=== PATIENT | female | born 1960 | race Caucasian/White ===

== ENCOUNTER → 2016-08-10 | Outpatient (CLI) | payer OTHER ==
[2016-08-10 10:17] LABS: ALT 23 U/L (9-52); AST 17 U/L (14-36); Alkaline Phosphatase 67 U/L (38-126); Anion Gap 9 mmol/L; Blood Urea Nitrogen 8 mg/dL (7-17); Calcium 9.2 mg/dL (8.4-10.2); Carbon Dioxide 26 mmol/L (22-30); Chloride 106 mmol/L (98-107); Cholesterol 144 mg/dL (<200); Glucose 105 mg/dL (74-99); HDL Cholesterol 40 mg/dL (40-60); Non-African American GFR(MDRD) >60 (>60 ml/min/1.73 sqM); Potassium 4.6 mmol/L (3.5-5.1); Sodium 141 mmol/L (137-145); Total Bilirubin 0.6 mg/dL (0.2-1.3); Total Protein 7.2 g/dL (6.3-8.2); Triglycerides 126 mg/dL (<150)
== END | disposition home or self-care (01) ==
LOC: LABWHC1 08:34
PROVIDERS: ATTEND Internal Medicine Interventional Cardiology
DX: E78.2 Mixed hyperlipidemia (principal)
CPT/HCPCS: 36415; 80053; 80061

== ENCOUNTER → 2016-08-24 | Outpatient (CLI) | payer OTHER ==
--- NOTE | 2016-08-24 17:43 | XR ---
EXAMINATION TYPE: XR foot complete RT DATE OF EXAM: 08/24/2016 COMPARISON: NONE HISTORY: Pain TECHNIQUE: 3 views FINDINGS: There are plantar and Achilles calcaneal spurs. Metatarsals are intact. I see no fracture n or dislocation. IMPRESSION: Calcaneal spurring. No fracture seen. No evidence of inflammatory arthritis.
== END ==
LOC: RADXRMAIN 16:55
PROVIDERS: ATTEND Podiatrist Foot & Ankle Surgery
DX: M77.31 Calcaneal spur, right foot (principal)

== ENCOUNTER 2016-08-27 09:25 | Emergency (ER) | payer OTHER ==
[2016-08-27 09:32] VITALS: BP 120/69; PULSE 75; RESP 17; TEMP 98.8
--- NOTE | 2016-08-27 10:16 | ED ---
General Adult HPI - General Chief complaint: Extremity Injury, Lower Stated complaint: Knee Pain Time Seen by Provider: 08/27/16 10:01 Source: patient, RN notes reviewed Mode of arrival: ambulatory Limitations: no limitations - History of Present Illness Initial comments: Patient's a 55-year-old female who presents emergency room today with chief complaint of increased pain to the left knee. She does admit that she was sleeping last night her left knee felt stiff she moved and felt a pop in the left knee. She states she's had something like this in the past with her ligament. She states worse when she flexes better when she extends. States she has been able to ambulate. Denies any swelling. Denies any other complaints or symptoms at this time. Patient denies any recent fever, chills, shortness of breath, chest pain, back pain, abdominal pain, nausea or vomiting, numbness or tingling, dysuria or hematuria, constipation or diarrhea, headaches or visual changes, or any other complaints. - Related Data Home Medications Medication Instructions Recorded Confirmed Levothyroxine Sodium [Synthroid] 88 mcg PO DAILY 08/09/13 10/05/13 Omeprazole [PriLOSEC] 20 mg PO AC-BID 10/03/13 10/05/13 Previous Rx's Medication Instructions Recorded Aspirin 325 mg PO DAILY #30 tab 08/12/13 Atorvastatin [Lipitor] 80 mg PO DAILY #30 tab 08/12/13 Carvedilol [Coreg] 6.25 mg PO PC-BID #60 tab 08/12/13 Clopidogrel [Plavix] 75 mg PO DAILY #30 tab 08/12/13 Furosemide [Lasix] 20 mg PO DAILY 30 Days 08/12/13 Lisinopril [Zestril] 5 mg PO DAILY #30 tab 08/12/13 Nitroglycerin Sl Tabs [Nitrostat] 0.4 mg SUBLINGUAL Q5M PRN #20 tab 08/12/13 Spironolactone [Aldactone] 25 mg PO DAILY #30 tab 08/12/13 Ibuprofen [Motrin] 600 mg PO Q6HR PRN #40 day 08/27/16 Allergies Allergy/AdvReac Type Severity Reaction Status Date / Time hydrocodone bitartrate AdvReac Unknown, Verified 10/03/13 14:33 [From Vicodin] VERY RESTLESS, ANXIETY Review of Systems ROS Statement: Those systems with pertinent positive or pertinent negative responses have been documented in the HPI. ROS Other: All systems not noted in ROS Statement are negative. Past Medical History Past Medical History: GERD/Reflux, Osteoarthritis (OA), Thyroid Disorder History of Any Multi-Drug Resistant Organisms: None Reported Past Surgical History: Cholecystectomy, Heart Catheterization With Stent Past Anesthesia/Blood Transfusion Reactions: No Reported Reaction Date of Last Stent Placement:: 08/10/13 Past Psychological History: No Psychological Hx Reported, Depression Smoking Status: Current every day smoker Past Alcohol Use History: None Reported Past Drug Use History: None Reported General Exam - General Exam Comments Initial Comments: General: The patient is awake and alert, in no distress, and does not appear acutely ill. Neck: The neck is supple, there is no tenderness or JVD. Cardiovascular: There is a regular rate and rhythm. No murmur, rub or gallop is appreciated. Respiratory: Lungs are clear to auscultation, respirations are non-labored, breath sounds are equal. No wheezes, stridor, rales, or rhonchi. Musculoskeletal: Patient does have a normal appearance of the left knee no obvious deformity. No swelling or bruising. Patient does show good range of motion. Pain is reproduced with flexion at the left knee. Mild tenderness into the anterior lateral aspect. Negative valgus varus stress. Negative Carlos Manuel's maneuver. No popliteal tenderness. Negative Homans. No swelling to the lower extremities. Pulses equal bilaterally 2+. Strength is 5/5. Neurological: A&O x 3. CN II-XII intact, There are no obvious motor or sensory deficits. Coordination appears grossly intact. Speech is normal. Skin: Skin is warm and dry and no rashes or lesions are noted. Psychiatric: Normal mood and affect. Limitations: no limitations Course Vital Signs 08/27/16 09:29 Temperature 98.8 F Pulse Rate 75 Respiratory 17 Rate Blood Pressure 120/69 O2 Sat by Pulse 98 Oximetry Medical Decision Making - Medical Decision Making Patient's x-ray reviewed does show findings that may represent increased with positive arthropathy, osteoarthritis. Findings compatible with a synovial osteochondromatosis. Results were discussed with patient. She is advised to follow-up with orthopedics for further evaluation. Advised to ice elevate the affected area and use anti-inflammatories for pain at this time. Disposition Clinical Impression: Knee pain, acute Disposition: HOME SELF-CARE Condition: Good Instructions: Knee Pain (ED) Additional Instructions: Please continue to ice elevate the affected areas 4 times daily for 20 minutes at a time. Please use anti-inflammatory ibuprofen for pain as needed and follow -up orthopedics over the next 2 days. Please return to emergency room for any other concerns. Prescriptions: Ibuprofen [Motrin] 600 mg PO Q6HR PRN #40 day PRN Reason: Pain Referrals: Dieter Wheat DO [Primary Care Provider] - 1-2 days Eddie Hernandez MD [Medical Doctor] - 1-2 days Time of Disposition: 10:31
--- NOTE | 2016-08-27 10:23 | XR ---
Left knee HISTORY: Left knee pain 3 views of the left knee, no comparisons There are ossific densities in the suprapatellar location with associated increased density compatibl e with joint effusion and loose bodies. Bone mineralization is reduced. Joint space loss present jun cially in the medial compartment, patellofemoral joint with marginal spurring. Alignment is maintaine d. 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
== END 2016-08-27 10:40 | disposition home or self-care (01) ==
LOC: EC 09:25
DX: M25.562 Pain in left knee (principal); K21.9 Gastro-esophageal reflux disease without esophagitis; E07.9 Disorder of thyroid, unspecified; F17.200 Nicotine dependence, unspecified, uncomplicated; Z79.899 Other long term (current) drug therapy; Z88.5 Allergy status to narcotic agent; X50.9XXA Other and unspecified overexertion or strenuous movements or postures, initial encounter; Y93.84 Activity, sleeping
CPT/HCPCS: 99283

== ENCOUNTER → 2017-05-07 | Outpatient (CLI) | payer OTHER ==
[2017-05-07 10:37] LABS: ALT 17 U/L (9-52); AST 13 U/L (14-36); Albumin 3.6 g/dL (3.5-5.0); Alkaline Phosphatase 76 U/L (38-126); Anion Gap 9 mmol/L; Blood Urea Nitrogen 5 mg/dL (7-17); Calcium 9.1 mg/dL (8.4-10.2); Carbon Dioxide 26 mmol/L (22-30); Chloride 109 mmol/L (98-107); Cholesterol 134 mg/dL (<200); Glucose 98 mg/dL (74-99); HDL Cholesterol 42 mg/dL (40-60); LDL Cholesterol,Calculated 74 mg/dL (0-99); Potassium 4.7 mmol/L (3.5-5.1); Sodium 144 mmol/L (137-145); Total Bilirubin 0.4 mg/dL (0.2-1.3); Total Protein 6.7 g/dL (6.3-8.2); Triglycerides 92 mg/dL (<150)
== END | disposition home or self-care (01) ==
LOC: LABWHC1 09:44
PROVIDERS: ATTEND Internal Medicine Interventional Cardiology
DX: E78.2 Mixed hyperlipidemia (principal)
CPT/HCPCS: 36415; 80053; 80061

== ENCOUNTER → 2017-05-07 | Outpatient (CLI) | payer OTHER ==
--- NOTE | 2017-05-07 13:08 | XR ---
EXAMINATION TYPE: XR chest 2V DATE OF EXAM: 05/07/2017 COMPARISON: Prior chest x-ray 10/31/2015 HISTORY: COPD, follow-up for pneumonia TECHNIQUE: Frontal and lateral views of the chest are obtained. FINDINGS: There is no focal air space opacity, pleural effusion, or pneumothorax seen. The cardiac silhouette size is within normal limits. Prominent lung volumes compatible with underlying COPD. Pa tient is rotated. The osseous structures are intact. IMPRESSION: No acute cardiopulmonary process.
== END | disposition home or self-care (01) ==
LOC: RADXRMAIN 10:03
PROVIDERS: ATTEND Family Medicine
DX: J44.9 Chronic obstructive pulmonary disease, unspecified (principal)
CPT/HCPCS: 71046

== ENCOUNTER → 2017-06-22 | Outpatient (CLI) | payer OTHER ==
--- NOTE | 2017-06-22 12:34 | XR ---
EXAMINATION TYPE: XR chest 2V DATE OF EXAM: 06/22/2017 COMPARISON: NONE TECHNIQUE: PA and lateral views submitted. HISTORY: Cough FINDINGS: The lungs are clear and there is no pneumothorax, pleural effusion, or focal pneumonia. Hypertrophi c and degenerative change of the spine noted. Arthropathy of the shoulders. Surgical clips in the abd omen. IMPRESSION: 1. No acute process.
== END | disposition home or self-care (01) ==
LOC: RADXRMAIN 12:15
PROVIDERS: ATTEND Nurse Practitioner Acute Care
DX: J06.9 Acute upper respiratory infection, unspecified (principal)
CPT/HCPCS: 71046

== ENCOUNTER 2017-06-24 12:34 | Emergency (ER) | payer OTHER ==
--- NOTE | 2017-06-24 14:20 | XR ---
EXAMINATION TYPE: XR chest 2V DATE OF EXAM: 06/24/2017 COMPARISON: 06/22/2017 HISTORY: Cough and congestion for 6 days TECHNIQUE: Frontal and lateral views of the chest are obtained. FINDINGS: There is new platelike atelectasis within the left midlung. Remainder the lungs are clear. No focal consolidation, pleural effusion or pneumothorax. Cardiomediastinal silhouette is within nor mal limits. Osseous structures are intact. Cholecystectomy clips are noted within the right upper jun drant. IMPRESSION: New platelike left midlung peripheral atelectasis. No findings to suggest pneumonia.
--- NOTE | 2017-06-24 14:33 | ED ---
URI HPI - General Chief Complaint: Upper Respiratory Infection Stated Complaint: Cough Time Seen by Provider: 06/24/17 13:29 Source: patient, RN notes reviewed Mode of arrival: ambulatory Limitations: no limitations - History of Present Illness Initial Comments: 56-year-old female presents emergency Department chief complaint of cough congestion. Patient states she's been sick for last week seen by PCP yesterday placed on azithromycin and Medrol Dosepak. Patient states that she's been taken for last couple days no improvement states that she's had reactions to medication. States it makes her stomach upset. Patient states that she feels jittery from the steroids. Denies any chest pain or shortness breath this time. Denies any ear pain she has complaint sinus congestion and sore throat. - Related Data Home Medications Medication Instructions Recorded Confirmed Omeprazole [PriLOSEC] 20 mg PO AC-BID 10/03/13 06/24/17 Aspirin EC [Ecotrin Low Dose] 81 mg PO DAILY 06/24/17 06/24/17 Atorvastatin [Lipitor] 40 mg PO HS 06/24/17 06/24/17 Azithromycin [Zithromax Z-pack] See Taper PO DIRECTED 06/24/17 06/24/17 Carvedilol [Coreg] 6.25 mg PO QAM 06/24/17 06/24/17 Carvedilol [Coreg] 12.5 mg PO HS 06/24/17 06/24/17 Citalopram Hydrobromide 20 mg PO DAILY 06/24/17 06/24/17 [Citalopram HBr] Depo-Medrol 80 mg IM ONCE 06/24/17 06/24/17 Ipratropium/Albuterol Sulfate 1 puff INHALATION RT-QID 06/24/17 06/24/17 [Combivent Respimat Inhaler] Levothyroxine Sodium [Synthroid] 100 mcg PO DAILY 06/24/17 06/24/17 Losartan Potassium [Cozaar] 25 mg PO DAILY 06/24/17 06/24/17 Meloxicam 15 mg PO DAILY 06/24/17 06/24/17 Ondansetron HCl [Zofran] 4 mg PO Q8H PRN 06/24/17 06/24/17 Umeclidinium [place] [Incruse 1 puff INHALATION RT-DAILY 06/24/17 06/24/17 Ellipta] methylPREDNISolone [Medrol Dose See Taper PO DIRECTED 06/24/17 06/24/17 Pack] Previous Rx's Medication Instructions Recorded Nitroglycerin Sl Tabs [Nitrostat] 0.4 mg SUBLINGUAL Q5M PRN #20 tab 08/12/13 Amoxicillin/Potassium Clav 1 tab PO Q12HR #20 tab 06/24/17 [Augmentin 875-125 Tablet] Allergies Allergy/AdvReac Type Severity Reaction Status Date / Time hydrocodone bitartrate AdvReac Unknown, Verified 06/24/17 13:52 [From Vicodin] VERY RESTLESS, ANXIETY Review of Systems ROS Statement: Those systems with pertinent positive or pertinent negative responses have been documented in the HPI. ROS Other: All systems not noted in ROS Statement are negative. Past Medical History Past Medical History: GERD/Reflux, Osteoarthritis (OA), Thyroid Disorder History of Any Multi-Drug Resistant Organisms: None Reported Past Surgical History: Cholecystectomy, Heart Catheterization With Stent Past Anesthesia/Blood Transfusion Reactions: No Reported Reaction Date of Last Stent Placement:: 08/10/13 Past Psychological History: Depression Smoking Status: Current every day smoker Past Alcohol Use History: None Reported Past Drug Use History: None Reported General Exam Limitations: no limitations General appearance: alert, in no apparent distress Head exam: Present: atraumatic, normocephalic, normal inspection Eye exam: Present: normal appearance, PERRL, EOMI. Absent: scleral icterus, conjunctival injection, periorbital swelling ENT exam: Present: mucous membranes moist, TM's normal bilaterally, normal external ear exam. Absent: normal oropharynx (postnasal drainage) Neck exam: Present: normal inspection, full ROM. Absent: tenderness, meningismus, lymphadenopathy Respiratory exam: Present: normal lung sounds bilaterally. Absent: respiratory distress, wheezes, rales, rhonchi, stridor Cardiovascular Exam: Present: regular rate, normal rhythm, normal heart sounds. Absent: systolic murmur, diastolic murmur, rubs, gallop, clicks Course Vital Signs 06/24/17 13:20 Temperature 98.8 F Pulse Rate 62 Respiratory 16 Rate Blood Pressure 137/71 O2 Sat by Pulse 96 Oximetry Medical Decision Making - Medical Decision Making 56-year-old female presented for URI symptoms. patient repeat x-ray today shows atelectasis no evidence of pneumonia. We discussed taken decongestant, taking deep inspirations. Patient will be placed on Augmentin. Return parameters were discussed. Disposition Clinical Impression: Upper respiratory infection Disposition: HOME SELF-CARE Condition: Stable Instructions: Upper Respiratory Infection (ED) Additional Instructions: Please return to the Emergency Department if symptoms worsen or any other concerns. Prescriptions: Amoxicillin/Potassium Clav [Augmentin 875-125 Tablet] 1 tab PO Q12HR #20 tab Referrals: Dieter Wheat DO [Primary Care Provider] - 1-2 days Time of Disposition: 14:33
[2017-06-24 14:46] VITALS: BP 133/72; PULSE 71; RESP 18; TEMP 98.3
== END 2017-06-24 14:46 | disposition home or self-care (01) ==
LOC: EC 12:34
DX: J06.9 Acute upper respiratory infection, unspecified (principal); J98.11 Atelectasis; K21.9 Gastro-esophageal reflux disease without esophagitis; M19.90 Unspecified osteoarthritis, unspecified site; E07.9 Disorder of thyroid, unspecified; F32.9 Major depressive disorder, single episode, unspecified; F17.200 Nicotine dependence, unspecified, uncomplicated; Z79.1 Long term (current) use of non-steroidal anti-inflammatories (NSAID); Z79.52 Long term (current) use of systemic steroids; Z79.82 Long term (current) use of aspirin; Z79.899 Other long term (current) drug therapy
CPT/HCPCS: 71046; 99283

== ENCOUNTER 2017-06-26 12:59 | Observation (INO) | payer OTHER ==
[2017-06-26] MEDS ORDERED: methylPREDNISolone SOD SUCCI 125 MG/2 ML VIAL IV STA (13:20)
[2017-06-26] MEDS ORDERED: IPRATROPIUM-ALBUTEROL 3 ML NEB INHALATION STA (13:20)
[2017-06-26] MEDS ORDERED: SODIUM CHLORIDE 0.9% 500 ML IV STA (13:20)
[2017-06-26] MEDS ORDERED: SODIUM CHLORIDE 0.9% 1,000 ML IV STA (13:20)
[2017-06-26] MEDS ORDERED: AZITHROMYCIN 500 MG in SODIUM CHLORIDE 0.9% 250 ML IVPB STA (13:20)
--- NOTE | 2017-06-26 14:07 | ED ---
General Adult HPI - General Chief complaint: Shortness of Breath Stated complaint: Dizzy Time Seen by Provider: 06/26/17 13:07 Source: patient, RN notes reviewed, old records reviewed Mode of arrival: wheelchair Limitations: no limitations - History of Present Illness Initial comments: This is a 56-year-old female the ER for evaluation. She presents today for evaluation of shortness of breath with cough. Patient has positive history of bronchitis and smoking. Recent diagnosis of bronchitis on outpatient treatment. Patient states she is having no improvement. No recent travel history no sick contacts, no prior hospitalizations for shortness of breath. - Related Data Home Medications Medication Instructions Recorded Confirmed Omeprazole [PriLOSEC] 20 mg PO AC-BID 10/03/13 06/26/17 Aspirin EC [Ecotrin Low Dose] 81 mg PO DAILY 06/24/17 06/26/17 Atorvastatin [Lipitor] 40 mg PO HS 06/24/17 06/26/17 Carvedilol [Coreg] 6.25 mg PO QAM 06/24/17 06/26/17 Carvedilol [Coreg] 12.5 mg PO HS 06/24/17 06/26/17 Citalopram Hydrobromide 20 mg PO DAILY 06/24/17 06/26/17 [Citalopram HBr] Ipratropium/Albuterol Sulfate 1 puff INHALATION RT-QID 06/24/17 06/26/17 [Combivent Respimat Inhaler] Levothyroxine Sodium [Synthroid] 100 mcg PO DAILY 06/24/17 06/26/17 Losartan Potassium [Cozaar] 25 mg PO DAILY 06/24/17 06/26/17 Meloxicam 15 mg PO DAILY 06/24/17 06/26/17 Ondansetron HCl [Zofran] 4 mg PO Q8H PRN 06/24/17 06/26/17 Umeclidinium [place] [Incruse 1 puff INHALATION RT-DAILY 06/24/17 06/26/17 Ellipta] Previous Rx's Medication Instructions Recorded Nitroglycerin Sl Tabs [Nitrostat] 0.4 mg SUBLINGUAL Q5M PRN #20 tab 08/12/13 Amoxicillin/Potassium Clav 1 tab PO Q12HR #20 tab 06/24/17 [Augmentin 875-125 Tablet] Allergies Allergy/AdvReac Type Severity Reaction Status Date / Time hydrocodone bitartrate AdvReac VERY Verified 06/26/17 13:39 [From Vicodin] RESTLESS, ANXIETY Review of Systems ROS Statement: Those systems with pertinent positive or pertinent negative responses have been documented in the HPI. ROS Other: All systems not noted in ROS Statement are negative. Past Medical History Past Medical History: GERD/Reflux, Osteoarthritis (OA), Thyroid Disorder History of Any Multi-Drug Resistant Organisms: None Reported Past Surgical History: Cholecystectomy, Heart Catheterization With Stent Past Anesthesia/Blood Transfusion Reactions: No Reported Reaction Date of Last Stent Placement:: 08/10/13 Past Psychological History: Depression Smoking Status: Current every day smoker Past Alcohol Use History: None Reported Past Drug Use History: None Reported General Exam Limitations: no limitations General appearance: alert, in no apparent distress, anxious Head exam: Present: atraumatic, normocephalic, normal inspection Eye exam: Present: normal appearance, PERRL, EOMI. Absent: scleral icterus, conjunctival injection, periorbital swelling ENT exam: Present: normal exam, mucous membranes moist Neck exam: Present: normal inspection. Absent: tenderness, meningismus, lymphadenopathy Respiratory exam: Present: respiratory distress, wheezes, decreased breath sounds, prolonged expiratory. Absent: rales, rhonchi, stridor Cardiovascular Exam: Present: regular rate, normal rhythm, normal heart sounds. Absent: systolic murmur, diastolic murmur, rubs, gallop, clicks GI/Abdominal exam: Present: soft, normal bowel sounds. Absent: distended, tenderness, guarding, rebound, rigid Extremities exam: Present: normal inspection, full ROM, normal capillary refill. Absent: tenderness, pedal edema, joint swelling, calf tenderness Back exam: Present: normal inspection Neurological exam: Present: alert, oriented X3, CN II-XII intact Psychiatric exam: Present: normal affect, normal mood Skin exam: Present: warm, dry, intact, normal color. Absent: rash Course Vital Signs 06/26/17 06/26/17 06/26/17 13:00 13:59 14:10 Temperature 96.8 F L Pulse Rate 54 L 84 88 Respiratory 24 Rate Blood Pressure 120/57 O2 Sat by Pulse 97 Oximetry - Reevaluation(s) Reevaluation #1: 06/26/17 14:32 She is having improvement with breathing treatment EKG Findings - EKG Comments: EKG Findings:: EKG shows sinus bradycardia rate of 52, [place] 172, QRS 90, QTc 476 Medical Decision Making - Medical Decision Making 56 female the ER for evaluation patient presents today for evaluation regarding shortness of breath consistent shortness of breath even since recent hospital admission. Patient is a positive smoker with history of bronchitis. to be admitted for feel outpatient treatment, continuous breathing treatments as well as steroids - Lab Data Result diagrams: 06/26/17 14:00 06/26/17 14:00 Lab Results 06/26/17 06/26/17 06/26/17 Range/Units 14:00 14:00 14:00 WBC 7.4 (3.8-10.6) k/uL RBC 4.34 (3.80-5.40) m/uL Hgb 13.3 (11.4-16.0) gm/dL Hct 38.7 (34.0-46.0) % MCV 89.2 (80.0-100.0) fL MCH 30.5 (25.0-35.0) pg MCHC 34.2 (31.0-37.0) g/dL RDW 13.3 (11.5-15.5) % Plt Count 205 (150-450) k/uL Neutrophils % 65 % Lymphocytes % 27 % Monocytes % 4 % Eosinophils % 0 % Basophils % 0 % Neutrophils # 4.8 (1.3-7.7) k/uL Lymphocytes # 2.0 (1.0-4.8) k/uL Monocytes # 0.3 (0-1.0) k/uL Eosinophils # 0.0 (0-0.7) k/uL Basophils # 0.0 (0-0.2) k/uL PT 9.9 (9.0-12.0) sec INR 1.0 (<1.2) APTT 22.4 (22.0-30.0) sec D-Dimer 0.37 (<0.60) mg/L FEU Sodium 142 (137-145) mmol/L Potassium 4.4 (3.5-5.1) mmol/L Chloride 108 H (98-107) mmol/L Carbon Dioxide 20 L (22-30) mmol/L Anion Gap 14 mmol/L BUN 10 (7-17) mg/dL Creatinine 0.61 (0.52-1.04) mg/dL Est GFR (CKD-EPI)AfAm >90 (>60 ml/min/1.73 sqM) Est GFR (CKD-EPI)NonAf >90 (>60 ml/min/1.73 sqM) Glucose 90 (74-99) mg/dL Calcium 9.0 (8.4-10.2) mg/dL Magnesium 2.0 (1.6-2.3) mg/dL Total Bilirubin 0.5 (0.2-1.3) mg/dL AST 34 (14-36) U/L ALT 37 (9-52) U/L Alkaline Phosphatase 54 (38-126) U/L Total Protein 7.3 (6.3-8.2) g/dL Albumin 3.8 (3.5-5.0) g/dL - Radiology Data Radiology results: report reviewed (Chest x-rays negative), image reviewed Disposition Clinical Impression: Dizziness, Anxiety, Upper respiratory infection, Acute exacerbation of chronic obstructive airways disease, Failure of outpatient treatment Disposition: ADMITTED IP TO THIS [facility] Condition: Fair Referrals: Dieter Wheat DO [Primary Care Provider] - 1-2 days
[2017-06-26 14:11] LABS: Basophils % (A) 0 %; Eosinophils % (A) 0 %; HCT 38.7 % (34.0-46.0); HGB 13.3 gm/dL (11.4-16.0); Lymphocytes % (A) 27 %; MCH 30.5 pg (25.0-35.0); MCHC 34.2 g/dL (31.0-37.0); MCV 89.2 fL (80.0-100.0); Mean Platelet Volume 8.1; Monocytes # (A) 0.3 k/uL (0-1.0); Monocytes % (A) 4 %; Neutrophils # (A) 4.8 k/uL (1.3-7.7); Neutrophils % (A) 65 %; Platelet Count 205 k/uL (150-450); RBC 4.34 m/uL (3.80-5.40); RDW 13.3 % (11.5-15.5); WBC 7.4 k/uL (3.8-10.6)
[2017-06-26 14:21] LABS: Albumin 3.8 g/dL (3.5-5.0); Anion Gap 14 mmol/L; Carbon Dioxide 20 mmol/L (22-30); Chloride 108 mmol/L (98-107); Glucose 90 mg/dL (74-99); Sodium 142 mmol/L (137-145); Total Bilirubin 0.5 mg/dL (0.2-1.3); Total Protein 7.3 g/dL (6.3-8.2)
[2017-06-26 14:23] LABS: ALT 37 U/L (9-52); AST 34 U/L (14-36); Alkaline Phosphatase 54 U/L (38-126); Blood Urea Nitrogen 10 mg/dL (7-17); Potassium 4.4 mmol/L (3.5-5.1)
[2017-06-26 14:24] LABS: D-Dimer 0.37 mg/L FEU (<0.60); Partial Thromboplastin Time 22.4 sec (22.0-30.0); Prothrombin Time 9.9 sec (9.0-12.0)
--- NOTE | 2017-06-26 14:33 | XR ---
EXAMINATION TYPE: XR chest 2V DATE OF EXAM: 06/26/2017 COMPARISON: Chest x-ray 2 days ago and older studies. HISTORY: Difficulty breathing per order. Upper respiratory infection. TECHNIQUE: Frontal and lateral views of the chest are obtained. FINDINGS: There is chronic parenchymal changes left lateral midlung linear atelectasis redemonstrated . There is no new suspicious focal air space opacity or pneumothorax seen. New tiny bilateral pleura l effusions are suspected with blunting of posterior costophrenic angles bilaterally. The cardiac ctahleen houette size is upper limits of normal currently and slightly more prominent. Cholecystectomy clips are noted on lateral view. The osseous structures are intact. IMPRESSION: New tiny bilateral pleural effusions and slightly more prominence of cardiac silhouette. Correlate for fluid overload state or early CHF exacerbation. No new suspicious focal infiltrate.
[2017-06-26 14:41] LABS: Creatine Kinase 290 U/L (30-135)
[2017-06-26 14:54] LABS: Creatine Kinase MB 1.1 ng/mL (0.0-2.4); Troponin I <0.012 ng/mL (0.000-0.034)
[2017-06-26 16:49] VITALS: BMI 39.5
[2017-06-26] MEDS ORDERED: NITROGLYCERIN SL TABS 0.4 MG TAB SUBLINGUAL PRN (18:34)
[2017-06-26] MEDS ORDERED: ONDANSETRON 4 MG TAB PO PRN (18:34)
[2017-06-26] MEDS: methylPREDNISolone SOD SUCCI 125 MG/2 ML VIAL IV SCH (18:39)
[2017-06-26] MEDS: SODIUM CHLORIDE 0.9% 1,000 ML IV SCH (18:43)
[2017-06-26] MEDS ORDERED: IPRATROPIUM-ALBUTEROL 3 ML NEB INHALATION SCH (20:00)
[2017-06-26] MEDS ORDERED: ATORVASTATIN 40 MG TAB PO SCH (21:00)
[2017-06-26] MEDS ORDERED: CARVEDILOL 12.5 MG TAB PO SCH (21:00)
[2017-06-26 21:03] LABS: Glucose,Whole Blood 237 mg/dL (75-99)
[2017-06-26] MEDS: INSULIN ASPART 100 UNIT/ML 1 ML 10 ML VIAL SQ SCH (21:19)
[2017-06-26] MEDS: AMOXIC-POT CLAV 875-125MG 1 EACH TAB PO SCH (21:19)
[2017-06-26] MEDS ORDERED: MAGNESIUM HYDROXIDE 2,400 MG/10 ML CUP PO PRN (21:23)
[2017-06-26] MEDS ORDERED: BISACODYL 5 MG TABLET.DR PO PRN (21:23)
[2017-06-26] MEDS ORDERED: ONDANSETRON 4 MG/2 ML VIAL IVP PRN (21:23)
[2017-06-26] MEDS ORDERED: ACETAMINOPHEN TAB 325 MG TAB PO PRN (21:23)
[2017-06-26] MEDS ORDERED: LORazepam 0.5 MG TAB PO PRN (21:23)
[2017-06-26] MEDS ORDERED: MELATONIN 3 MG TABLET PO PRN (21:23)
[2017-06-26] MEDS ORDERED: NALOXONE 0.4 MG/ML 1 ML VIAL IV PRN (21:23)
[2017-06-26] MEDS ORDERED: LACTULOSE 20 GM/30 ML CUP PO PRN (21:23)
[2017-06-26] MEDS: NICOTINE 7MG/24HR PATCH TRANSDERM SCH (21:57)
--- NOTE | 2017-06-26 22:45 | HP ---
HISTORY AND PHYSICAL DATE OF ADMISSION: 06/26/2017 PRESENT COMPLAINT: Short of breath, cough. HISTORY OF PRESENTING COMPLAINT: This is a 56-year-old patient of Dr. Wheat. Chronic stable medical conditions include GERD, osteoarthritis, hypothyroid, depression, coronary artery disease. The patient smokes a few cigarettes a day. The patient for at least about a week has been having increasing short of breath, cough, wheezing, very little phlegm. No fever, decreased appetite, tired, run down. The patient initially got a Z-Jae, felt jittery with it, it did not suit her too well and then she went back. She got some more antibiotics and Mucinex. Symptoms were not getting any better and getting worse; hence, she decided to come in because having failed outpatient treatment, she was admitted with COPD exacerbation. Feels a shade better after getting bronchodilators. REVIEW OF SYSTEM: CONSTITUTIONAL: Tired. HEENT: None. RESPIRATORY: As above. CARDIOVASCULAR: None. GASTROINTESTINAL: None. MUSCULOSKELETAL: Arthritic pain in different joints. DERMATOLOGICAL: None. HEMATOLOGIC: None. LYMPHATIC: None. PSYCHIATRY: Depression, anxiety. NEUROLOGICAL: None. PAST HISTORY: GERD, osteoarthritis, hypothyroid, coronary artery with stent, depression. PAST SURGICAL HISTORY: Cardiac cath with stent, cholecystectomy. SOCIAL HISTORY: Lives with mother. Patient has averaged about half a pack a day for close to 40 years, now down to 3 cigarettes a day. Alcohol: None. FAMILY HISTORY: Coronary artery disease, hypertension. HOME MEDICATIONS: 1. Augmentin 875 1 tablet q.12. 2. Zofran 4 mg q.8h p.r.n. 3. Nitrostat 0.4 sublingual q.5 p.r.n. 4. Coreg 12.5 p.o. q.h.s. 5. Lipitor 40 mg q.h.s. 6. Incruse Ellipta 1 puff daily. 7. Prilosec 20 mg b.i.d. 8. Meloxicam 50 mg p.o. daily. 9. Cozaar 25 mg p.o. daily. 10.Synthroid 100 mcg p.o. daily. 11.Combivent 1 puff q.i.d. 12.Celexa 20 mg p.o. daily. 13.Coreg 6.25 p.o. in the morning. 14.Aspirin 81 mg p.o. daily. ALLERGIES: TO VICODIN. EXAMINATION: Temperature 96.8, pulse 54, respiration 24, blood pressure 120/57, pulse ox 97% on room air. GENERAL APPEARANCE: Well-built, BMI 39.5. Sitting up, short of breath. EYES: Pupils equal. Conjunctivae normal. HEENT: External appearance of nose and ears normal. Oral cavity normal. NECK: JVD unable to assess. Mass not palpable. RESPIRATORY: Effort increased. Accessory muscles are working. Patient is not able to speak in full sentences. LUNGS: Diminished breath sounds. Prolonged expiration, wheezing. CARDIOVASCULAR: First and second sounds normal. No edema. ABDOMEN: Soft, nontender. Liver and spleen not palpable. LYMPHATIC: No lymph node palpable in neck or axillae. PSYCHIATRY: Alert and oriented x3. Mood and affect slightly anxious-appearing. NEUROLOGICAL: Pupils equal. Cranial nerves grossly intact. Power and sensation grossly intact. MUSCULOSKELETAL: Evidence of osteoarthritis, especially in the hands and knees. INVESTIGATIONS: White count 7.4, hemoglobin 13.3. Potassium 4.4, BUN 10, creatinine 0.61. D-dimer 0.37. Troponin 0.012. Chest x-ray: No obvious infiltrate. ProBNP 1015. EKG: Sinus bradycardia. ASSESSMENT: 1. Acute COPD exacerbation in a patient who is a smoker, having failed outpatient treatment and possible tracheobronchitis, could be viral. 2. Gastroesophageal reflux disease. 3. Primary osteoarthritis of multiple joints bilaterally. 4. Hypothyroid. 5. Obesity; BMI 39.5. 6. Coronary artery disease with prior history of stent. 7. Depression, not otherwise specified. PLAN: Patient is put on nebulized bronchodilators, IV steroids. Home medications are resumed. Pulmonary was consulted. The patient was advised against smoking. Care was discussed with the patient's mother at the bedside. The patient also will be put on nicotine patch and also IV steroids. MMODL / IJN: [id number] /
[2017-06-27] MEDS: IPRATROPIUM-ALBUTEROL 3 ML NEB INHALATION SCH ×4 (00:03→11:10)
[2017-06-27] MEDS: SODIUM CHLORIDE 0.9% 1,000 ML IV SCH ×2 (03:08→10:42)
[2017-06-27 05:53] LABS: Glucose,Whole Blood 138 mg/dL (75-99)
[2017-06-27] MEDS: methylPREDNISolone SOD SUCCI 125 MG/2 ML VIAL IV SCH ×3 (06:18→10:41)
[2017-06-27] MEDS ORDERED: LEVOTHYROXINE 100 MCG TAB PO SCH (06:30)
[2017-06-27] MEDS: INSULIN ASPART 100 UNIT/ML 1 ML 10 ML VIAL SQ SCH ×2 (06:43→12:16)
[2017-06-27] MEDS ORDERED: PANTOPRAZOLE 40 MG TABLET PO SCH (07:30)
[2017-06-27] MEDS ORDERED: BUDESONIDE 1 MG/2 ML NEBU INHALATION SCH (08:00)
[2017-06-27] MEDS ORDERED: NON-FORMULARY DRUG (Umeclidinium Bromide [Incruse Ellipta] 1 PUFF) INHALATION SCH (08:00)
--- NOTE | 2017-06-27 08:46 | P.CRDCN ---
History of Present Illness Consult date: 06/27/17 Chief complaint: Cough History of present illness: This is a pleasant 56-year-old female patient with a past medical history significant for coronary artery disease and status post a stenting of the LAD in 2013, COPD, hypertension, and dyslipidemia, presented to the hospital after she failed outpatient treatment for upper respiratory infection/ bronchitis. The patient has been struggling with cough associated with fever as well as with chills for the last few days. She tried outpatient antibiotic and that did not help and for that reason she was admitted to the hospital and she was diagnosed with COPD exacerbation. We get involved in her care because of her bradycardia with a resting heart rate in the 40s. She stated that she was feeling dizzy and lightheaded at home. No syncope. No chest pain or chest discomfort. The cardiac enzymes came in to be unremarkable. The EKG showed sinus bradycardia with nonspecific changes. The BNP came in to be within normal limits. The patient was receiving Coreg and also she does have history of thyroid disorder. I am going to decrease the dose of Coreg and also I will check the TSH and obtain an echocardiogram and follow-up with her. We'll continue monitor the heart rate. Past Medical History Past Medical History: GERD/Reflux, Osteoarthritis (OA), Thyroid Disorder History of Any Multi-Drug Resistant Organisms: None Reported Past Surgical History: Cholecystectomy, Heart Catheterization With Stent Past Anesthesia/Blood Transfusion Reactions: No Reported Reaction Date of Last Stent Placement:: 08/10/13 Past Psychological History: Depression Smoking Status: Former smoker Past Alcohol Use History: None Reported Past Drug Use History: None Reported - Past Family History Mother Family Medical History: Coronary Artery Disease (CAD), Hypertension, Myocardial Infarction (NH) Medications and Allergies Home Medications Medication Instructions Recorded Confirmed Type Nitroglycerin Sl Tabs [Nitrostat] 0.4 mg SUBLINGUAL Q5M PRN #20 tab 08/12/1310/06 Rx Omeprazole [PriLOSEC] 20 mg PO AC-BID 10/03/13 06/26/17 History Amoxicillin/Potassium Clav 1 tab PO Q12HR #20 tab 06/24/17 06/26/17 Rx [Augmentin 875-125 Tablet] Aspirin EC [Ecotrin Low Dose] 81 mg PO DAILY 06/24/17 06/26/17 History Atorvastatin [Lipitor] 40 mg PO HS 06/24/17 06/26/17 History Carvedilol [Coreg] 6.25 mg PO QAM 06/24/17 06/26/17 History Carvedilol [Coreg] 12.5 mg PO HS 06/24/17 06/26/17 History Citalopram Hydrobromide 20 mg PO DAILY 06/24/17 06/26/17 History [Citalopram HBr] Ipratropium/Albuterol Sulfate 1 puff INHALATION RT-QID 06/24/17 06/26/17 History [Combivent Respimat Inhaler] Levothyroxine Sodium [Synthroid] 100 mcg PO DAILY 06/24/17 06/26/17 History Losartan Potassium [Cozaar] 25 mg PO DAILY 06/24/17 06/26/17 History Meloxicam 15 mg PO DAILY 06/24/17 06/26/17 History Ondansetron HCl [Zofran] 4 mg PO Q8H PRN 06/24/17 06/26/17 History Umeclidinium [place] [Incruse 1 puff INHALATION RT-DAILY 06/24/17 06/26/17 History Ellipta] Allergies Allergy/AdvReac Type Severity Reaction Status Date / Time hydrocodone bitartrate AdvReac VERY Verified 06/26/17 13:39 [From Vicodin] RESTLESS, ANXIETY Physical Exam Vitals: Vital Signs Temp Pulse Pulse Resp BP BP Pulse Ox 06/27/17 07:36 60 06/27/17 07:20 60 06/27/17 03:48 96.9 F L 58 L 20 114/66 94 L 06/27/17 00:00 97.4 F L 63 18 125/75 96 06/26/17 21:31 60 06/26/17 21:17 59 L 06/26/17 20:00 96.8 F L 60 18 122/57 97 06/26/17 17:00 56 L 18 06/26/17 15:47 97.1 F L 55 L 18 152/72 97 06/26/17 15:30 97.6 F 56 L 20 145/70 97 06/26/17 14:58 55 L 18 121/62 95 06/26/17 14:10 88 06/26/17 13:59 84 06/26/17 13:00 96.8 F L 54 L 24 120/57 97 Intake and Output 06/26/17 06/27/17 06/27/17 22:59 06:59 14:59 Intake Total 580 200 Balance 580 200 Intake: IV 100 Sodium Chloride 0.9% 1, 100 000 ml @ 100 mls/hr IV . Q10H [facility] Rx#:[id number] Intake, IV Titration 250 Amount Azithromycin 500 mg In 250 Sodium Chloride 0.9% 250 ml @ 125 mls/hr IVPB ONCE STA Rx#:[id number] Oral 230 200 Other: Weight 104.5 kg 108.8 kg - Constitutional General appearance: no acute distress - Respiratory Respiratory: bilateral: CTA - Cardiovascular Rhythm: regular Heart sounds: normal: S1, S2 Results 06/26/17 14:00 06/26/17 14:00 Cardiac Enzymes 06/26/17 06/26/17 Range/Units 14:00 14:00 AST 34 (14-36) U/L CK-MB (CK-2) 1.1 (0.0-2.4) ng/mL Troponin I <0.012 (0.000-0.034) ng/mL Coagulation 06/26/17 Range/Units 14:00 PT 9.9 (9.0-12.0) sec APTT 22.4 (22.0-30.0) sec CBC 06/26/17 Range/Units 14:00 WBC 7.4 (3.8-10.6) k/uL RBC 4.34 (3.80-5.40) m/uL Hgb 13.3 (11.4-16.0) gm/dL Hct 38.7 (34.0-46.0) % Plt Count 205 (150-450) k/uL Comprehensive Metabolic Panel 06/26/17 Range/Units 14:00 Sodium 142 (137-145) mmol/L Potassium 4.4 (3.5-5.1) mmol/L Chloride 108 H (98-107) mmol/L Carbon Dioxide 20 L (22-30) mmol/L BUN 10 (7-17) mg/dL Creatinine 0.61 (0.52-1.04) mg/dL Glucose 90 (74-99) mg/dL Calcium 9.0 (8.4-10.2) mg/dL AST 34 (14-36) U/L ALT 37 (9-52) U/L Alkaline Phosphatase 54 (38-126) U/L Total Protein 7.3 (6.3-8.2) g/dL Albumin 3.8 (3.5-5.0) g/dL Current Medications Generic Name Dose Route Start Last Admin Trade Name Freq PRN Reason Stop Dose Admin Acetaminophen 650 mg 06/26/17 21:23 Tylenol Tab PO Q6HR PRN Mild Pain or Fever > 100.5 Albuterol/Ipratropium 3 ml 06/27/17 00:00 06/27/17 07:20 Duoneb 0.5 Mg-3 Mg/3 Ml Soln INHALATION 3 ml RT-Q4H NEVIN Administration Amoxicillin/Clavulanate Potassium 1 each 06/26/17 21:00 06/26/17 21:19 Augmentin 875-125 PO 1 each Q12HR NEVIN Administration Aspirin 81 mg 06/27/17 09:00 Aspirin PO DAILY [facility] Atorvastatin Calcium 40 mg 06/26/17 21:00 06/26/17 21:19 Lipitor PO 40 mg HS [facility] Administration Azithromycin 500 mg 06/27/17 09:00 Zithromax PO DAILY [facility] Bisacodyl 5 mg 06/26/17 21:23 Dulcolax PO DAILY PRN Constipation Budesonide 1 mg 06/27/17 08:00 06/27/17 07:20 Pulmicort INHALATION 1 mg RT-BID [facility] Administration Carvedilol 3.125 mg 06/27/17 17:30 Coreg PO BID-W/MEALS [facility] Citalopram Hydrobromide 20 mg 06/27/17 09:00 Celexa PO DAILY [facility] Enoxaparin Sodium 40 mg 06/27/17 09:00 Lovenox SQ DAILY [facility] Sodium Chloride 1,000 mls @ 100 mls/hr 06/26/17 14:30 06/27/17 03:08 Saline 0.9% IV Not Given .Q10H [facility] Insulin Aspart 0 unit 06/26/17 21:04 06/27/17 06:43 Novolog SQ 1 unit ACHS [facility] Administration Protocol Lactulose 20 gm 06/26/17 21:23 Cephulac PO DAILY PRN Constipation Levothyroxine Sodium 100 mcg 06/27/17 06:30 06/27/17 06:20 Synthroid PO 100 mcg DAILY@0630 [facility] Administration Lorazepam 0.5 mg 06/26/17 21:23 Ativan PO Q6HR PRN Anxiety Losartan Potassium 25 mg 06/27/17 09:00 Cozaar PO DAILY [facility] Magnesium Hydroxide 2,400 mg 06/26/17 21:23 Milk Of Magnesia PO DAILY PRN Constipation Melatonin 3 mg 06/26/17 21:23 06/26/17 21:57 Melatonin PO 3 mg HS PRN Administration Insomnia Meloxicam 15 mg 06/27/17 09:00 Mobic PO DAILY [facility] Methylprednisolone Sodium Succinate 60 mg 06/26/17 18:00 06/27/17 06:18 Solu-Medrol IV 60 mg Q6HR [facility] Administration Naloxone HCl 0.2 mg 06/26/17 21:23 Narcan IV Q2M PRN Opioid Reversal Nicotine 1 patch 06/26/17 21:45 06/26/17 21:57 Habitrol 7mg/24hr Patch TRANSDERM 1 patch DAILY [facility] Administration Nitroglycerin 0.4 mg 06/26/17 18:34 Nitrostat SUBLINGUAL Q5M PRN Chest Pain Ondansetron HCl 4 mg 06/26/17 18:34 06/27/17 07:03 Zofran PO 4 mg Q8H PRN Administration Nausea Pantoprazole Sodium 40 mg 06/27/17 07:30 06/27/17 06:21 Protonix PO 40 mg AC-BRKFST [facility] Administration Intake and Output 06/26/17 06/27/17 06/27/17 22:59 06:59 14:59 Intake Total 580 200 Balance 580 200 Intake: IV 100 Sodium Chloride 0.9% 1, 100 000 ml @ 100 mls/hr IV . Q10H [facility] Rx#:[id number] Intake, IV Titration 250 Amount Azithromycin 500 mg In 250 Sodium Chloride 0.9% 250 ml @ 125 mls/hr IVPB ONCE STA Rx#:[id number] Oral 230 200 Other: Weight 104.5 kg 108.8 kg 06/26/17 14:00 06/26/17 14:00 Assessment and Plan Assessment: Assessment #1 acute respiratory failure secondary to COPD exacerbation #2 symptomatic bradycardia #3 coronary artery disease as described above #4 significant history of smoking Plan #1 decrease the dose of Coreg to 3.125 mg by mouth twice a day #2 continue monitor the heart rate #3 obtain a TSH #4 obtain an echocardiogram was Doppler #5 follow-up with the patient. Thank you for allowing us participate in the patient's care and we'll continue following up with the patient
[2017-06-27] MEDS ORDERED: CARVEDILOL 6.25 MG TAB PO SCH (09:00)
[2017-06-27] MEDS ORDERED: LOSARTAN 25 MG TAB PO SCH (09:00)
[2017-06-27] MEDS ORDERED: ENOXAPARIN 40 MG/0.4 ML SYRINGE SQ SCH (09:00)
[2017-06-27] MEDS ORDERED: MELOXICAM 7.5 MG TAB PO SCH (09:00)
[2017-06-27] MEDS ORDERED: CITALOPRAM HYDROBROMIDE 20 MG TAB PO SCH (09:00)
[2017-06-27] MEDS ORDERED: AZITHROMYCIN 500 MG TAB PO SCH (09:00)
[2017-06-27] MEDS ORDERED: ASPIRIN 81 MG PO SCH (09:00)
[2017-06-27] MEDS: AMOXIC-POT CLAV 875-125MG 1 EACH TAB PO SCH (09:08)
[2017-06-27] MEDS: NICOTINE 7MG/24HR PATCH TRANSDERM SCH (09:09)
[2017-06-27] MEDS ORDERED: DOXYCYCLINE 50 MG CAP PO SCH (09:30)
--- NOTE | 2017-06-27 11:19 | P.CNPUL ---
History of Present Illness Consult date: 06/27/17 Requesting physician: Ge David Reason for consult: dyspnea, COPD Chief complaint: Cough and shortness of breath History of present illness: This is a 56-year-old female with history of multiple medical problems including coronary artery disease and previous stenting of the LAD in 2013, ongoing tobacco dependence syndrome, history of COPD, hypertension, patient presented to the hospital with a few days' history of cough, chills, but no fever. Given antibiotics on outpatient basis, for what seems to be an upper respiratory tract infection, did not improve much, patient was brought into the ER. Chest x-ray is normal. D-dimer is normal. CBC is relatively normal. Basic metabolic profile is normal except for bicarb of 20 and slightly elevated blood sugar. Patient was basically admitted with symptoms of URI. And bradycardia. Pulmonary-stauffer, the patient has no active pulmonary symptoms at present, but she seems to be concerned about her nausea. Apparently she has a chronic history of nausea, has been worsened since she was admitted and placed on a number of antibiotics including Augmentin and Zithromax. Today I switched her to doxycycline, and I felt that the patient could actually be considered for discharge home. As long as she is clear for discharge by cardiology. Patient denies any headaches no blurred vision no dizziness, she had minimal cough, minimal shortness of breath, no wheezing, no fever, no hemoptysis, she does have chronic ongoing nausea but no vomiting. She has chronic anxiety, no abdominal pain, no melena, no hematemesis. Review of Systems 14 point review of systems were obtained, please refer to pertinent positives and negatives as per HPI otherwise remaining systems are negative Past Medical History Past Medical History: GERD/Reflux, Osteoarthritis (OA), Thyroid Disorder History of Any Multi-Drug Resistant Organisms: None Reported Past Surgical History: Cholecystectomy, Heart Catheterization With Stent Past Anesthesia/Blood Transfusion Reactions: No Reported Reaction Date of Last Stent Placement:: 08/10/13 Past Psychological History: Depression Smoking Status: Former smoker Past Alcohol Use History: None Reported Past Drug Use History: None Reported - Past Family History Mother Family Medical History: Coronary Artery Disease (CAD), Hypertension, Myocardial Infarction (ID) Medications and Allergies Home Medications Medication Instructions Recorded Confirmed Type Nitroglycerin Sl Tabs [Nitrostat] 0.4 mg SUBLINGUAL Q5M PRN #20 tab 08/12/1310/06 Rx Omeprazole [PriLOSEC] 20 mg PO AC-BID 10/03/13 06/26/17 History Amoxicillin/Potassium Clav 1 tab PO Q12HR #20 tab 06/24/17 06/26/17 Rx [Augmentin 875-125 Tablet] Aspirin EC [Ecotrin Low Dose] 81 mg PO DAILY 06/24/17 06/26/17 History Atorvastatin [Lipitor] 40 mg PO HS 06/24/17 06/26/17 History Carvedilol [Coreg] 6.25 mg PO QAM 06/24/17 06/26/17 History Carvedilol [Coreg] 12.5 mg PO HS 06/24/17 06/26/17 History Citalopram Hydrobromide 20 mg PO DAILY 06/24/17 06/26/17 History [Citalopram HBr] Ipratropium/Albuterol Sulfate 1 puff INHALATION RT-QID 06/24/17 06/26/17 History [Combivent Respimat Inhaler] Levothyroxine Sodium [Synthroid] 100 mcg PO DAILY 06/24/17 06/26/17 History Losartan Potassium [Cozaar] 25 mg PO DAILY 06/24/17 06/26/17 History Meloxicam 15 mg PO DAILY 06/24/17 06/26/17 History Ondansetron HCl [Zofran] 4 mg PO Q8H PRN 06/24/17 06/26/17 History Umeclidinium [place] [Incruse 1 puff INHALATION RT-DAILY 06/24/17 06/26/17 History Ellipta] Allergies Allergy/AdvReac Type Severity Reaction Status Date / Time hydrocodone bitartrate AdvReac VERY Verified 06/26/17 13:39 [From Vicodin] RESTLESS, ANXIETY Physical Exam Vitals: Vital Signs Temp Pulse Pulse Resp BP BP Pulse Ox 06/27/17 08:00 98.3 F 58 L 20 116/54 93 L 06/27/17 07:36 60 06/27/17 07:20 60 06/27/17 03:48 96.9 F L 58 L 20 114/66 94 L 06/27/17 00:00 97.4 F L 63 18 125/75 96 06/26/17 21:31 60 06/26/17 21:17 59 L 04/07/18 20:00 96.8 F L 60 18 122/57 97 06/26/17 17:00 56 L 18 06/26/17 15:47 97.1 F L 55 L 18 152/72 97 06/26/17 15:30 97.6 F 56 L 20 145/70 97 06/26/17 14:58 55 L 18 121/62 95 06/26/17 14:10 88 06/26/17 13:59 84 06/26/17 13:00 96.8 F L 54 L 24 120/57 97 Intake and Output 06/26/17 06/27/17 06/27/17 22:59 06:59 14:59 Intake Total 580 200 480 Balance 580 200 480 Intake: IV 100 Sodium Chloride 0.9% 1, 100 000 ml @ 100 mls/hr IV . Q10H [facility] Rx#:[id number] Intake, IV Titration 250 Amount Azithromycin 500 mg In 250 Sodium Chloride 0.9% 250 ml @ 125 mls/hr IVPB ONCE STA Rx#:[id number] Oral 230 200 480 Other: Weight 104.5 kg 108.8 kg Physical Exam: Revealed a 56-year-old female, slightly anxious, in no distress. Head: Atraumatic, normocephalic. Eyes: PERRLA, EOMI, no icterus. HEENT:[Neck is supple.] [No neck masses.] [No thyromegaly.] [No JVD.] Chest: [Diminished breath sounds at the bases, no crackles or rhonchi or wheezes Cardiac Exam: [Normal S1 and S2, no S3 gallop, no murmur.] Abdomen: [Soft, nontender, no megaly, no rebound, no guarding, normal bowel sounds.] Extremities: [No clubbing, no edema, no cyanosis.] Neurological Exam: [No focal neurologic deficit.] Psychiatric: Anxious, denies any symptoms of depression, normal mental status examination. Blunt affect Lymphatics: No lymphadenopathy. Musculoskeletal: Normal range of motion, no deformities. Results - Laboratory Findings CBC and BMP: 06/26/17 14:00 06/26/17 14:00 PT/INR, D-dimer PT 9.9 sec (9.0-12.0) 06/26/17 14:00 INR 1.0 (<1.2) 06/26/17 14:00 D-Dimer 0.37 mg/L FEU (<0.60) 06/26/17 14:00 Abnormal lab findings: Abnormal Labs 06/26/17 06/26/17 06/26/17 14:00 14:00 21:01 Chloride 108 H Carbon Dioxide 20 L POC Glucose (mg/dL) 237 H Total Creatine Kinase 290 H 06/27/17 05:51 Chloride Carbon Dioxide POC Glucose (mg/dL) 138 H Total Creatine Kinase - Diagnostic Findings Chest x-ray: image reviewed (Chest x-ray showed no evidence of active disease.) Assessment and Plan Assessment: Impression: 1 Acute URI and acute exacerbation of COPD, relatively mild. 2 chronic nausea, could be evaluated on outpatient basis. 3 history of coronary artery disease and previous stenting of LAD in 2013. 4 sinus bradycardia on this admission. 5 tobacco dependence syndrome 6 generalized anxiety disorder 7 history of hypothyroidism 8 history of benign essential hypertension Recommendation: Switch patient to doxycycline, continue bronchodilators, consider discharging the patient home on follow-up on outpatient basis. Patient has been seen in our office many years ago, she was advised to call and make an appointment to be seen in the next few days. Time with Patient: Greater than 30
[2017-06-27 11:25] LABS: Glucose,Whole Blood 133 mg/dL (75-99)
[2017-06-27 11:55] VITALS: BP 120/59; PULSE 50; RESP 22; TEMP 97.4
--- NOTE | 2017-06-27 15:34 | DS ---
DISCHARGE SUMMARY DATE OF ADMISSION: June 26, 2017. DATE OF DISCHARGE: June 27, 2017. FINAL DIAGNOSES: 1. Acute chronic obstructive pulmonary disease exacerbation from possible tracheobronchitis. 2. Gastroesophageal reflux disease. 3. Primary osteoarthritis multiple joints bilateral. 4. Hypothyroid. 5. Obesity; BMI 39.5. 6. Coronary artery disease, prior history of stent. 7. Depression, not otherwise specified. CONSULTATION: Dr. Ca from Pulmonary, Dr. Kennedy from Cardiology. HOSPITAL COURSE: The patient presented with COPD exacerbation and tracheobronchitis. Doing much better. The patient is advised against smoking. Because heart rate is running on the lower side, dose of Coreg was cut back. Care was discussed with the patient at the bedside and smoking cessation again re-emphasized. Discharge planning more than 35 minutes. DISCHARGE MEDICATIONS: 1. Nitrostat 0.4 sublingual q.5 p.r.n. 2. Prilosec 20 mg p.o. b.i.d. 3. Aspirin 81 mg p.o. daily. 4. Lipitor 40 mg q.h.s. 5. Celexa 20 mg p.o. daily. 6. Combivent 1 puff q.i.d. 7. Synthroid 100 mcg p.o. daily. 8. Cozaar 25 mg p.o. daily. 9. Meloxicam 50 mg p.o. daily. 10.Zofran 4 mg q.8h p.r.n. 11.En kt Ellipta 1 puff daily. 12.Coreg 3.125 p.o. b.i.d., new dose. 13.Vibramycin 100 mg p.o. b.i.d. 10 tablets new dose. 14.Nicotine 7 mg patch, new dose. 15.Prednisone taper. New medication. FOLLOWUP: Follow up with Dr. Wheat in 3 days, follow up with Dr. Ca in 1 week. On examination, lungs improved air entry. Cardiovascular 1st and 2nd sounds normal. Psych AO x3. Discharge planning more than [address] Wheat. MMODL / STACIEN: [id number] /
[2017-06-27] MEDS ORDERED: CARVEDILOL 3.125 MG TAB PO SCH (17:30)
[2017-06-27 19:34] LABS: Hemoglobin A1C 5.9 % (4.0-6.0)
== END 2017-06-27 14:48 | disposition home or self-care (01) ==
LOC: EC 12:59 → 6SEL 14:29 → INTOOBSV 14:29 → 6SEL 15:34 → UNDODISIN 06-27 14:48
PROVIDERS: ADMIT Hospitalist; ATTEND Hospitalist
DX: J44.1 Chronic obstructive pulmonary disease with (acute) exacerbation (principal); J96.00 Acute respiratory failure, unspecified whether with hypoxia or hypercapnia; J06.9 Acute upper respiratory infection, unspecified; K21.9 Gastro-esophageal reflux disease without esophagitis; F17.210 Nicotine dependence, cigarettes, uncomplicated; I25.10 Atherosclerotic heart disease of native coronary artery without angina pectoris; I10 Essential (primary) hypertension; E78.5 Hyperlipidemia, unspecified; F41.1 Generalized anxiety disorder; R00.1 Bradycardia, unspecified; M19.042 Primary osteoarthritis, left hand; M19.041 Primary osteoarthritis, right hand; M17.0 Bilateral primary osteoarthritis of knee; F32.9 Major depressive disorder, single episode, unspecified; E03.9 Hypothyroidism, unspecified; R11.0 Nausea; Z68.39 Body mass index [BMI] 39.0-39.9, adult; E66.9 Obesity, unspecified; Z95.5 Presence of coronary angioplasty implant and graft; Z79.82 Long term (current) use of aspirin; Z79.1 Long term (current) use of non-steroidal anti-inflammatories (NSAID); Z79.899 Other long term (current) drug therapy; Z88.5 Allergy status to narcotic agent; Z82.49 Family history of ischemic heart disease and other diseases of the circulatory system
CPT/HCPCS: 99285 ×2; 96365 ×2; 96366; 96375 ×2; 36415; 94640 ×4; 93005; 85379; 83880; 80053; 82550; 82553; 83735; 84484; 85025; 85610; 85730; 83036; 71046; G0378 ×2; S4990 ×2; J2930 ×2; J0456; J1650; 96372; 96376

== ENCOUNTER → 2017-11-10 | Outpatient (CLI) | payer OTHER ==
--- NOTE | 2017-11-10 13:09 | XR ---
EXAMINATION TYPE: XR ribs LT w pa chest xray DATE OF EXAM: 11/10/2017 COMPARISON: NONE HISTORY: Pain TECHNIQUE: Frontal view of the chest and 4 views of the left ribs FINDINGS: Lungs are clear. No pneumothorax or overt failure. Atherosclerotic change aorta. Heart size normal. Arthropathy of the left shoulder. Surgical clips in the abdomen. Hypertrophic and degenerative change s spine. No acute displaced rib fracture. IMPRESSION: No acute displaced rib fracture.
== END | disposition home or self-care (01) ==
LOC: RADXRMAIN 12:46
PROVIDERS: ATTEND Family Medicine
DX: R07.81 Pleurodynia (principal)

== ENCOUNTER → 2018-02-14 | Outpatient (CLI) | payer OTHER ==
[2018-02-14 16:14] LABS: Albumin/Globulin Ratio 1.82 (1.20-2.10); Anion Gap 4.5 mmol/L (4.00-12.00); Calcium 9.2 mg/dL (8.7-10.3); Carbon Dioxide 25.5 mmol/L (21.6-31.8); Globulin 2.2 g/dL (2.1-3.7); Potassium 4.9 mmol/L (3.5-5.5); Total Bilirubin 0.4 mg/dL (0.3-1.2); Total Protein 6.2 g/dL (6.2-8.2)
== END | disposition home or self-care (01) ==
LOC: LABWHC1 10:26
PROVIDERS: ATTEND Internal Medicine Interventional Cardiology
DX: E78.2 Mixed hyperlipidemia (principal)
CPT/HCPCS: 36415; 80053; 80061

== ENCOUNTER → 2018-03-10 | Outpatient (CLI) | payer OTHER ==
--- NOTE | 2018-03-11 14:17 | MM ---
Reason for exam: screening (asymptomatic). Last mammogram was performed 4 years and 7 months ago. History: Patient is nulliparous. Physical Findings: A clinical breast exam by your physician is recommended on an annual basis and results should be correlated with mammographic findings. MG Screening Mammo w CAD Bilateral CC and MLO view(s) were taken. Prior study comparison: August 04, 2013, bilateral MG screening mammo w CAD. January 05, 2002, left breast special view mammogram. There are scattered fibroglandular densities. Benign appearing bilateral calcifications. No suspicious abnormality. No significant changes when compared with prior studies. ASSESSMENT: Benign, BI-RAD 2 RECOMMENDATION: Routine screening mammogram of both breasts in 1 year.
== END ==
LOC: RADMAMWWP 12:47
PROVIDERS: ATTEND Family Medicine
DX: Z12.31 Encounter for screening mammogram for malignant neoplasm of breast (principal)
CPT/HCPCS: 77067

== ENCOUNTER → 2018-05-11 | Outpatient (CLI) | payer OTHER ==
--- NOTE | 2018-05-11 17:12 | US ---
EXAMINATION TYPE: US abdomen complete DATE OF EXAM: 05/11/2018 COMPARISON: NONE CLINICAL HISTORY: R10.9 ABD PAIN. left sided cramping EXAM MEASUREMENTS: Liver Length: 16.4 cm Gallbladder Wall: Surgically absent CBD: 0.5 cm Spleen: 10.0 cm Right Kidney: 10.9 x 4.8 x 4.8 cm Left Kidney: 12.0 x 5.6 x 4.7 cm Pancreas: Tail obscured by overlying bowel gas Liver: appears wnl Gallbladder: Surgically absent Evidence for sonographic Garcia's sign: No CBD: wnl Spleen: appears wnl Right Kidney: no evidence of hydronephrosis Left Kidney: no evidence of hydronephrosis Upper IVC: wnl Abd Aorta: limited evaluation due to overlying bowel content IMPRESSION: 1. Normal ultrasound abdomen as visualized.
== END ==
LOC: RADUSWWP 09:26
PROVIDERS: ATTEND Family Medicine
DX: R10.9 Unspecified abdominal pain (principal)
CPT/HCPCS: 76700

== ENCOUNTER 2018-06-02 18:41 | Emergency (ER) | payer OTHER ==
[2018-06-02 18:53] VITALS: BP 117/71; PULSE 86; RESP 20; TEMP 98.3
[2018-06-02] MEDS ORDERED: KETOROLAC 60 MG/2 ML VIAL IM STA (19:07)
--- NOTE | 2018-06-02 19:29 | ED ---
General Adult HPI - General Chief complaint: Extremity Injury, Lower Stated complaint: ankle pain Time Seen by Provider: 06/02/18 19:00 Source: patient, RN notes reviewed, old records reviewed Mode of arrival: ambulatory Limitations: no limitations - History of Present Illness Initial comments: 57-year-old female patient past medical history of GERD, coronary artery disease presents to ED with left ankle injury. Patient reports that she was a laundry room, tripped, fell forward. Patient reports that she suffered a left ankle inversion injury. Patient primary complaint is pain in her lateral malleolus. Patient denies any trauma to head or neck, denies any other injuries, denies any loss of consciousness. Patient not on blood thinners. Denies all other complaints. Systemic: Pt denies fatigue, myalgia, fever/chills, rash. Pt denies weakness, night sweats, weight loss. Neuro: Pt denies headache, visual disturbances, syncope or pre-syncope. HEENT: Pt denies ocular discharge or irritation, otalgia, rhinorrhea, pharyngitis or notable lymphadenopathy. Cardiopulmonary: Pt denies chest pain, SOB, heart palpitations, dyspnea on exertion. Abdominal/GI: Pt denies abdominal pain, n/v/d. : Pt denies dysuria, burning w/ urination, frequency/urgency. Denies new onset urinary or bowel incontinence. MSK: Pt denies myalgia, loss of strength or function in extremities. Neuro: Pt denies new onset weakness, paresthesias. - Related Data Home Medications Medication Instructions Recorded Confirmed Omeprazole [PriLOSEC] 20 mg PO AC-BID 10/03/13 06/26/17 Aspirin EC [Ecotrin Low Dose] 81 mg PO DAILY 06/24/17 06/26/17 Atorvastatin [Lipitor] 40 mg PO HS 06/24/17 06/26/17 Citalopram Hydrobromide 20 mg PO DAILY 06/24/17 06/26/17 [Citalopram HBr] Ipratropium/Albuterol Sulfate 1 puff INHALATION RT-QID 06/24/17 06/26/17 [Combivent Respimat Inhaler] Levothyroxine Sodium [Synthroid] 100 mcg PO DAILY 06/24/17 06/26/17 Losartan Potassium [Cozaar] 25 mg PO DAILY 06/24/17 06/26/17 Meloxicam 15 mg PO DAILY 06/24/17 06/26/17 Ondansetron HCl [Zofran] 4 mg PO Q8H PRN 06/24/17 06/26/17 Umeclidinium [place] [Incruse 1 puff INHALATION RT-DAILY 06/24/17 06/26/17 Ellipta] Previous Rx's Medication Instructions Recorded Nitroglycerin Sl Tabs [Nitrostat] 0.4 mg SUBLINGUAL Q5M PRN #20 tab 08/12/13 Carvedilol [Coreg] 3.125 mg PO BID-W/MEALS #60 tab 06/27/17 Doxycycline [Vibramycin] 100 mg PO BID #10 cap 06/27/17 Nicotine 7Mg/24Hr Patch [Habitrol] 1 patch TRANSDERM DAILY #30 patch 06/27/17 predniSONE 10 mg PO DAILY #30 tab 06/27/17 Allergies Allergy/AdvReac Type Severity Reaction Status Date / Time hydrocodone bitartrate AdvReac VERY Verified 06/02/18 18:51 [From Vicodin] RESTLESS, ANXIETY Review of Systems ROS Statement: Those systems with pertinent positive or pertinent negative responses have been documented in the HPI. ROS Other: All systems not noted in ROS Statement are negative. Past Medical History Past Medical History: GERD/Reflux, Osteoarthritis (OA), Thyroid Disorder History of Any Multi-Drug Resistant Organisms: None Reported Past Surgical History: Cholecystectomy, Heart Catheterization With Stent Past Anesthesia/Blood Transfusion Reactions: No Reported Reaction Date of Last Stent Placement:: 08/10/13 Past Psychological History: Depression Smoking Status: Former smoker Past Alcohol Use History: None Reported Past Drug Use History: None Reported - Past Family History Mother Family Medical History: Coronary Artery Disease (CAD), Hypertension, Myocardial Infarction ([place]) General Exam - General Exam Comments Initial Comments: Constitutional: NAD, AOX3, Pt has pleasant affect. HEENT: NC/AT, trachea midline, neck supple, no lymphadenopathy. Posterior pharynx non erythematous, without exudates. External ears appear normal, without discharge. Mucous membranes moist. Eyes PERRLA, EOM intact. There is no scleral icterus. No pallor noted. Cardiopulmonary: RRR, no murmurs, rubs or gallops, no JVD noted. Lungs CTAB in anterior and posterior cooper. No peripheral edema. Abdominal exam: Abdomen soft and non-distended. Abdomen non-tender to palpation in all 4 quadrants. Bowel sounds active in LLQ. No hepatosplenomegaly. No ecchymosis Neuro: CN II-XII grossly intact. No nuchal rigidity. MSK: Left lateral malleolus mildly tender to palpation. No ecchymoses. Plantar and dorsi flexion intact, neurovascularly intact, individually with antalgic gait. No other areas of tenderness. No posterior calf tenderness bilaterally, homans sign negative bilaterally. Posterior tibialis and radial pulse +2 bilaterally. Sensation intact in upper and lower extremities. Full active ROM in upper and lower extremities, 5/5 stregnth. Limitations: no limitations Course Vital Signs 06/02/18 18:51 Temperature 98.3 F Pulse Rate 86 Respiratory 20 Rate Blood Pressure 117/71 O2 Sat by Pulse 97 Oximetry Medical Decision Making - Medical Decision Making 57-year-old female patient past medical history of GERD, coronary artery disease presents to ED with left ankle injury. Patient reports that she was a laundry room, tripped, fell forward. Patient reports that she suffered a left ankle inversion injury. Patient primary complaint is pain in her lateral malleolus. Patient denies any trauma to head or neck, denies any other injuries, denies any loss of consciousness. Patient not on blood thinners. Denies all other complaints. Patient vital signs stable, afebrile. Physical exam displayed: Left lateral malleolus mildly tender to palpation. No ecchymoses. Plantar and dorsi flexion intact, neurovascularly intact, individually with antalgic gait. No other areas of tenderness. Plain film of right ankle did not display any acute pathology. Patient placed in Lionel wrap, will follow up with primary care provider in 1-2 days. Patient provided orthopedic consult symptoms persist. Patient to use crutches, limited weight bearing on ankle. Patient return to ER if condition worsens in any way. Case discussed with Dr. Contreras. Disposition Clinical Impression: Ankle sprain Disposition: HOME SELF-CARE Condition: Stable Instructions (If sedation given, give patient instructions): Ankle Sprain (ED) Additional Instructions: Patient to adhere to previously discussed treatment plan and will take medication(s) as directed. Patient to follow up with PCP in 1-2 days. Patient to return to ED if symptoms do not improve. Please limited weightbearing, please use crutches if possible. Please follow-up with primary care provider in 1-2 days. Please follow-up with orthopedic consult symptoms persist. Is patient prescribed a controlled substance at d/c from ED?: No Referrals: Dieter Wheat DO [Primary Care Provider] - 1-2 days Fco Rodarte DO [Medical Doctor] - 1-2 days
--- NOTE | 2018-06-02 19:37 | XR ---
EXAMINATION TYPE: XR ankle complete LT DATE OF EXAM: 06/02/2018 COMPARISON: NONE HISTORY: Foot and ankle pain TECHNIQUE: 3 views FINDINGS: There are plantar and Achilles calcaneal spurs. Ankle mortise is anatomic. I see no fractur e. Joint spaces are fairly normal. There is mild soft tissue swelling around the ankle. IMPRESSION: Soft tissue swelling. No fracture.
--- NOTE | 2018-06-02 19:38 | XR ---
EXAMINATION TYPE: XR foot complete LT DATE OF EXAM: 06/02/2018 COMPARISON: NONE HISTORY: Foot pain TECHNIQUE: 3 views FINDINGS: Metatarsals appear intact. Toes appear intact. I see no fracture nor dislocation. There are small plantar and Achilles calcaneal spurs. IMPRESSION: No fracture seen.
== END 2018-06-02 19:59 | disposition home or self-care (01) ==
LOC: EC 18:41
DX: S93.402A Sprain of unspecified ligament of left ankle, initial encounter (principal); I25.10 Atherosclerotic heart disease of native coronary artery without angina pectoris; K21.9 Gastro-esophageal reflux disease without esophagitis; E07.9 Disorder of thyroid, unspecified; M19.90 Unspecified osteoarthritis, unspecified site; F32.9 Major depressive disorder, single episode, unspecified; Z87.891 Personal history of nicotine dependence; Z88.5 Allergy status to narcotic agent; Z79.1 Long term (current) use of non-steroidal anti-inflammatories (NSAID); Z79.82 Long term (current) use of aspirin; Z79.890 Hormone replacement therapy; Z79.899 Other long term (current) drug therapy; Z95.5 Presence of coronary angioplasty implant and graft; W01.0XXA Fall on same level from slipping, tripping and stumbling without subsequent striking against object, initial encounter; Y92.008 Other place in unspecified non-institutional (private) residence as the place of occurrence of the external cause
CPT/HCPCS: 73610; 73630; 99284; 96372; J1885

== ENCOUNTER → 2018-09-06 | Outpatient (CLI) | payer OTHER ==
[2018-09-06 16:36] LABS: LDL Cholesterol,Calculated 77.4 mg/dL (0.0-131.0); VLDL Calculation 17.6 mg/dL (5.00-40.00)
== END | disposition home or self-care (01) ==
LOC: LABWHC1 10:00
PROVIDERS: ATTEND Internal Medicine Interventional Cardiology
DX: E78.2 Mixed hyperlipidemia (principal)
CPT/HCPCS: 36415; 80061; 84450; 84460

== ENCOUNTER 2018-10-22 09:05 | Emergency (ER) | payer OTHER ==
[2018-10-22] MEDS ORDERED: DIAZEPAM 5 MG/ML 2 ML INJ IVP STA (09:14)
[2018-10-22] MEDS ORDERED: MECLIZINE 12.5 MG TAB PO STA (09:14)
[2018-10-22 09:17] VITALS: RESP 18
--- NOTE | 2018-10-22 09:21 | ED ---
Dizziness HPI - General Stated Complaint: dizziness Time Seen by Provider: 10/22/18 09:05 Source: patient, EMS, RN notes reviewed, old records reviewed Mode of arrival: EMS - History of Present Illness Initial Comments: This is a 58-year-old female who states having ear problems in the left ear for the past 2 weeks requiring antibiotics complains waking up this way with severe dizziness. He states he gets worse with movements of. She has a headache no loss of function or lower extremities is difficulty with ambulation and balance. She was brought in by EMS for this. She had one prior episode she states in the past similar to this. No fevers chills he was diaphoretic upon arrival. No other modifying factors she was very nauseated she was given medication by paramedics. MD Complaint: dizziness - Related Data Home Medications Medication Instructions Recorded Confirmed Aspirin EC [Ecotrin Low Dose] 81 mg PO DAILY 06/24/17 10/22/18 Ipratropium/Albuterol Sulfate 1 puff INHALATION RT-QID 06/24/17 10/22/18 [Combivent Respimat Inhaler] Losartan Potassium [Cozaar] 25 mg PO DAILY 06/24/17 10/22/18 Umeclidinium [place] [Incruse 1 puff INHALATION RT-DAILY 06/24/17 10/22/18 Ellipta] Atorvastatin [Lipitor] 80 mg PO HS 10/22/18 10/22/18 Citalopram Hydrobromide [CeleXA] 40 mg PO DAILY 10/22/18 10/22/18 Levothyroxine Sodium [Synthroid] 175 mcg PO DAILY 10/22/18 10/22/18 [place]-3 Fatty Acids/Fish Oil [Fish 1,000 mg PO DAILY 10/22/18 10/22/18 Oil 1,000 mg Softgel] Previous Rx's Medication Instructions Recorded Nitroglycerin Sl Tabs [Nitrostat] 0.4 mg SUBLINGUAL Q5M PRN #20 tab 08/12/13 Carvedilol [Coreg] 3.125 mg PO BID-W/MEALS #60 tab 06/27/17 Amoxicillin/Potassium Clav 1 tab PO Q12HR #20 tab 10/22/18 [Augmentin 875-125 Tablet] Guaifenesin/Pseudoephedrne HCl 1 each PO BID #20 tab.er.12h 10/22/18 [Mucinex D ER Tablet] Meclizine [Antivert] 25 mg PO TID #20 tab 10/22/18 Allergies Allergy/AdvReac Type Severity Reaction Status Date / Time hydrocodone bitartrate AdvReac VERY Verified 10/22/18 09:51 [From Vicodin] RESTLESS, ANXIETY Review of Systems ROS Statement: Those systems with pertinent positive or pertinent negative responses have been documented in the HPI. ROS Other: All systems not noted in ROS Statement are negative. Past Medical History Past Medical History: GERD/Reflux, Osteoarthritis (OA), Thyroid Disorder History of Any Multi-Drug Resistant Organisms: None Reported Past Surgical History: Cholecystectomy, Heart Catheterization With Stent Past Anesthesia/Blood Transfusion Reactions: No Reported Reaction Date of Last Stent Placement:: 08/10/13 Past Psychological History: Depression Smoking Status: Former smoker Past Alcohol Use History: None Reported Past Drug Use History: None Reported - Past Family History Mother Family Medical History: Coronary Artery Disease (CAD), Hypertension, Myocardial Infarction ([place]) General Exam - General Exam Comments Initial Comments: This is a well-developed well-nourished awake alert oriented 3 female General appearance: alert, anxious, in distress Head exam: Present: atraumatic, normocephalic, normal inspection Eye exam: Present: normal appearance, PERRL, EOMI. Absent: scleral icterus, conjunctival injection, periorbital swelling ENT exam: Present: normal exam, mucous membranes moist, other (Left Tympanic membrane is demonstrating fluid behind it) Neck exam: Present: normal inspection, full ROM, other (No stridor JVD or bruits). Absent: tenderness, meningismus, lymphadenopathy Respiratory exam: Present: normal lung sounds bilaterally. Absent: respiratory distress, wheezes, rales, rhonchi, stridor Cardiovascular Exam: Present: regular rate, normal rhythm, normal heart sounds. Absent: systolic murmur, diastolic murmur, rubs, gallop, clicks GI/Abdominal exam: Present: soft, normal bowel sounds. Absent: distended, tenderness, guarding, rebound, rigid Extremities exam: Present: normal inspection, full ROM, normal capillary refill. Absent: tenderness, pedal edema, joint swelling, calf tenderness Back exam: Present: normal inspection Neurological exam: Present: alert, oriented X3, CN II-XII intact, other (Reproducible dizziness with movement of her head) Psychiatric exam: Present: normal affect, anxious Skin exam: Present: warm, intact, normal color, diaphoretic. Absent: rash Course Vital Signs 10/22/18 09:14 Temperature 98 F Pulse Rate 63 Respiratory 18 Rate Blood Pressure 127/75 O2 Sat by Pulse 98 Oximetry - Reevaluation(s) Reevaluation #1: 10/22/18 13:21 Reevaluation patient reveals she felt much improved with no dizziness she complains some occipital headache however. CAT scan was performed negative for acute findings EKG Findings - EKG Results: EKG: interpreted by ESCOBAR, sinus rhythm (Normal sinus rhythm of 61 appear interval 170 QRS duration 98 QT since QTC 464/[address]-T wave changes) Medical Decision Making - Medical Decision Making Patient did present with complaints of severe dizziness which was consistent with vertigo examination revealed evidence of fluid behind the left tympanic membrane. Evidence of otitis media. Patient will be discharged on appropriate medication - Lab Data Result diagrams: 10/22/18 09:20 10/22/18 09:20 Lab Results 10/22/18 10/22/18 Range/Units 09:20 09:20 WBC 7.0 (3.8-10.6) k/uL RBC 4.15 (3.80-5.40) m/uL Hgb 11.8 (11.4-16.0) gm/dL Hct 37.0 (34.0-46.0) % MCV 89.1 (80.0-100.0) fL MCH 28.3 (25.0-35.0) pg MCHC 31.8 (31.0-37.0) g/dL RDW 14.0 (11.5-15.5) % Plt Count 264 (150-450) k/uL Neutrophils % 68 % Lymphocytes % 21 % Monocytes % 4 % Eosinophils % 4 % Basophils % 0 % Neutrophils # 4.8 (1.3-7.7) k/uL Lymphocytes # 1.5 (1.0-4.8) k/uL Monocytes # 0.3 (0-1.0) k/uL Eosinophils # 0.3 (0-0.7) k/uL Basophils # 0.0 (0-0.2) k/uL Sodium 142 (137-145) mmol/L Potassium 4.2 (3.5-5.1) mmol/L Chloride 113 H (98-107) mmol/L Carbon Dioxide 20 L (22-30) mmol/L Anion Gap 9 mmol/L BUN 9 (7-17) mg/dL Creatinine 0.52 (0.52-1.04) mg/dL Est GFR (CKD-EPI)AfAm >90 (>60 ml/min/1.73 sqM) Est GFR (CKD-EPI)NonAf >90 (>60 ml/min/1.73 sqM) Glucose 123 H (74-99) mg/dL Calcium 9.0 (8.4-10.2) mg/dL Magnesium 2.0 (1.6-2.3) mg/dL Total Bilirubin 0.6 (0.2-1.3) mg/dL AST 17 (14-36) U/L ALT 29 (9-52) U/L Alkaline Phosphatase 81 (38-126) U/L Total Protein 7.1 (6.3-8.2) g/dL Albumin 3.6 (3.5-5.0) g/dL - Radiology Data Radiology results: report reviewed (I did review the imaging and reports no acute findings.), image reviewed Disposition Clinical Impression: Benign paroxysmal positional vertigo, Otitis media of left ear Disposition: HOME SELF-CARE Condition: Good Instructions (If sedation given, give patient instructions): Dizziness (ED), Ear Infection (ED), Benign Paroxysmal Positional Vertigo (ED) Additional Instructions: Your prescription has been sent to [facility] pharmacy in .[place] Prescriptions: Meclizine [Antivert] 25 mg PO TID #20 tab Amoxicillin/Potassium Clav [Augmentin 875-125 Tablet] 1 tab PO Q12HR #20 tab Guaifenesin/Pseudoephedrne HCl [Mucinex D ER Tablet] 1 each PO BID #20 tab.er.12h Is patient prescribed a controlled substance at d/c from ED?: No Referrals: Dieter Wheat DO [Primary Care Provider] - 1-2 days
[2018-10-22] MEDS ORDERED: ONDANSETRON 4 MG/2 ML VIAL IVP STA (09:26)
[2018-10-22 09:37] LABS: Basophils % (A) 0 %; Eosinophils # (A) 0.3 k/uL (0-0.7); Eosinophils % (A) 4 %; HGB 11.8 gm/dL (11.4-16.0); Lymphocytes # (A) 1.5 k/uL (1.0-4.8); Lymphocytes % (A) 21 %; MCH 28.3 pg (25.0-35.0); MCHC 31.8 g/dL (31.0-37.0); MCV 89.1 fL (80.0-100.0); Mean Platelet Volume 7.6; Monocytes # (A) 0.3 k/uL (0-1.0); Monocytes % (A) 4 %; Neutrophils # (A) 4.8 k/uL (1.3-7.7); Neutrophils % (A) 68 %; Platelet Count 264 k/uL (150-450); RBC 4.15 m/uL (3.80-5.40)
[2018-10-22 09:45] LABS: ALT 29 U/L (9-52); AST 17 U/L (14-36); African American GFR (CKD) >90 (>60 ml/min/1.73 sqM); Albumin 3.6 g/dL (3.5-5.0); Alkaline Phosphatase 81 U/L (38-126); Anion Gap 9 mmol/L; Blood Urea Nitrogen 9 mg/dL (7-17); Carbon Dioxide 20 mmol/L (22-30); Chloride 113 mmol/L (98-107); Glucose 123 mg/dL (74-99); Potassium 4.2 mmol/L (3.5-5.1); Sodium 142 mmol/L (137-145); Total Bilirubin 0.6 mg/dL (0.2-1.3); Total Protein 7.1 g/dL (6.3-8.2)
[2018-10-22 13:45] VITALS: BP 107/64; PULSE 62; TEMP 97.9
--- NOTE | 2018-10-22 13:45 | CT ---
EXAMINATION TYPE: CT brain wo con DATE OF EXAM: 10/22/2018 COMPARISON: Previous study dated 08/09/2013. HISTORY: vertigo CT DLP: 1013.4 mGycm Automated exposure control for dose reduction was used. FINDINGS: Central structures are midline. There is no evidence of hydrocephalus. No acute focal lesion, mass ef fect or midline shift is seen. I do not see evidence of intracranial blood. Visualized portions of the paranasal sinuses and mastoids are clear. Middle and inner ear structures appear normal. IMPRESSION: NORMAL CT SCAN OF THE BRAIN.
== END 2018-10-22 13:45 | disposition home or self-care (01) ==
LOC: EC 09:05
DX: H81.12 Benign paroxysmal vertigo, left ear (principal); H66.92 Otitis media, unspecified, left ear; E07.9 Disorder of thyroid, unspecified; F32.9 Major depressive disorder, single episode, unspecified; Z87.891 Personal history of nicotine dependence; Z95.5 Presence of coronary angioplasty implant and graft; Z79.82 Long term (current) use of aspirin; Z79.890 Hormone replacement therapy; Z79.899 Other long term (current) drug therapy; Z88.5 Allergy status to narcotic agent
CPT/HCPCS: 36415; 93005; 80053; 83735; 85025; 70450; 99285; 96374; 96375; J3360; J2405

== ENCOUNTER → 2019-02-21 | Outpatient (CLI) | payer OTHER ==
[2019-02-21 23:39] LABS: African American GFR (CKD) 117.3 (60.0-200.0); Albumin 4.3 g/dL (3.80-4.90); Albumin/Globulin Ratio 1.59 (1.60-3.17); Anion Gap 9.9 mmol/L (4.00-12.00); BUN/Creat Ratio 13.33 Ratio (12.00-20.00); Calcium 9.1 mg/dL (8.7-10.3); Carbon Dioxide 22.1 mmol/L (21.6-31.8); Chol/HDL Ratio 3.51; Globulin 2.7 g/dL (1.6-3.3); LDL Cholesterol,Calculated 75.2 mg/dL (0.0-131.0); Non-African American GFR(CKD) 101.2 (60.0-200.0); Potassium 4.6 mmol/L (3.5-5.5); Total Bilirubin 0.4 mg/dL (0.3-1.2); VLDL Calculation 22.8 mg/dL (5.00-40.00)
== END | disposition home or self-care (01) ==
LOC: LABWHC1 12:05
PROVIDERS: ATTEND Internal Medicine Interventional Cardiology
DX: E78.2 Mixed hyperlipidemia (principal)
CPT/HCPCS: 36415; 80053; 80061

== ENCOUNTER → 2019-08-25 | Outpatient (CLI) | payer OTHER ==
[2019-08-26 00:13] LABS: Chol/HDL Ratio 3.4
== END | disposition home or self-care (01) ==
LOC: LABWHC1 13:16
PROVIDERS: ATTEND Nurse Practitioner Adult Health
DX: E78.2 Mixed hyperlipidemia (principal)
CPT/HCPCS: 36415; 80061

== ENCOUNTER → 2019-08-25 | Outpatient (CLI) | payer OTHER ==
--- NOTE | 2019-08-29 11:19 | MM ---
Reason for exam: screening (asymptomatic). Last mammogram was performed 1 year and 6 months ago. History: Patient is postmenopausal and is nulliparous. Physical Findings: A clinical breast exam by your physician is recommended on an annual basis and results should be correlated with mammographic findings. MG Screening Mammo w CAD Bilateral CC, MLO, and XCCL view(s) were taken. Prior study comparison: March 10, 2018, bilateral MG screening mammo w CAD. August 04, 2013, bilateral MG screening mammo w CAD. There are scattered fibroglandular densities. Benign appearing bilateral calcifications. No suspicious abnormality. No significant changes when compared with prior studies. ASSESSMENT: Benign, BI-RAD 2 RECOMMENDATION: Routine screening mammogram of both breasts in 1 year.
== END | disposition home or self-care (01) ==
LOC: RADMAMWWP 12:30
PROVIDERS: ATTEND Family Medicine
DX: Z12.39 Encounter for other screening for malignant neoplasm of breast (principal)
CPT/HCPCS: 77067

== ENCOUNTER → 2019-12-07 | Outpatient (CLI) | payer OTHER ==
--- NOTE | 2019-12-07 10:37 | XR ---
EXAMINATION TYPE: XR ankle complete RT DATE OF EXAM: 12/07/2019 COMPARISON: NONE HISTORY: Pain FINDINGS: Three views of the ankle demonstrate the ankle mortise to be intact and symmetric. The joint spaces are preserved. The osseous structures are intact. There is hypertrophic changes involving the media l and lateral malleolus. Calcaneal spur noted. IMPRESSION: 1. Spurring along the medial and lateral malleolus no fracture..
== END | disposition home or self-care (01) ==
LOC: RADXRMAIN 10:15
PROVIDERS: ATTEND Physician Assistant
DX: M25.771 Osteophyte, right ankle (principal)

== ENCOUNTER → 2019-12-29 | Outpatient (CLI) | payer OTHER ==
[2019-12-29 19:42] LABS: African American GFR (CKD) 116.4 (60.0-200.0); Albumin 3.8 g/dL (3.80-4.90); Albumin/Globulin Ratio 1.41 (1.60-3.17); Anion Gap 10.6 mmol/L (4.00-12.00); Calcium 8.8 mg/dL (8.7-10.3); Carbon Dioxide 22.4 mmol/L (21.6-31.8); Chol/HDL Ratio 3.53; Globulin 2.7 g/dL (1.6-3.3); Non-African American GFR(CKD) 100.5 (60.0-200.0); Potassium 4.2 mmol/L (3.5-5.5); Total Bilirubin 0.4 mg/dL (0.2-1.2); Total Protein 6.5 g/dL (6.2-8.2)
== END | disposition home or self-care (01) ==
LOC: LABWHC1 09:27
PROVIDERS: ATTEND Nurse Practitioner Adult Health
DX: E78.2 Mixed hyperlipidemia (principal); I10 Essential (primary) hypertension
CPT/HCPCS: 36415; 80053; 80061

== ENCOUNTER → 2020-01-26 | Outpatient (CLI) | payer OTHER ==
[2020-01-26 14:05] LABS: Basophils % (A) 0 %; Eosinophils # (A) 0.1 k/uL (0-0.7); Eosinophils % (A) 2 %; HCT 37.8 % (34.0-46.0); HGB 12.1 gm/dL (11.4-16.0); Lymphocytes # (A) 2.2 k/uL (1.0-4.8); Lymphocytes % (A) 32 %; MCV 90.5 fL (80.0-100.0); Mean Platelet Volume 8.3; Monocytes # (A) 0.4 k/uL (0-1.0); Monocytes % (A) 5 %; Neutrophils # (A) 4.1 k/uL (1.3-7.7); Neutrophils % (A) 59 %; Platelet Count 271 k/uL (150-450); RBC 4.18 m/uL (3.80-5.40)
[2020-01-26 14:12] LABS: Prothrombin Time 10.2 sec (9.0-12.0)
[2020-01-26 14:23] LABS: Potassium 4.2 mmol/L (3.5-5.1)
== END | disposition home or self-care (01) ==
LOC: LABPAT 12:21
PROVIDERS: ATTEND Orthopaedic Surgery
DX: M17.11 Unilateral primary osteoarthritis, right knee (principal); Z22.322 Carrier or suspected carrier of Methicillin resistant Staphylococcus aureus
CPT/HCPCS: 36415; 80051; 85025; 85610; 87070

== ENCOUNTER 2020-01-29 12:55 | Day surgery (SDC) | payer OTHER ==
[2020-01-26 10:23] VITALS: BMI 37.5
--- NOTE | 2020-01-28 11:26 | HP ---
HISTORY AND PHYSICAL REASON FOR ADMISSION: Surgery scheduled for 01/29/2020 HISTORY OF PRESENT ILLNESS: Zulma Martinez is a 59-year-old patient seen with symptomatic right knee osteoarthritis. We discussed treatment options. She elected to proceed with right total knee arthroplasty. Consent was obtained. Medical clearance was by Dr. Wheat. Cardiac clearance was provided by Dr. Moore. PAST MEDICAL HISTORY: Hypertension, hypothyroidism, hyperlipidemia, cardiovascular disease. PAST SURGICAL HISTORY: Cholecystectomy. DAILY MEDICATIONS: Aspirin, atorvastatin, losartan, levothyroxine, omeprazole, Carvedilol. ALLERGIES: None. SOCIAL HISTORY: She denies current tobacco use. PHYSICAL EXAMINATION: Evaluation of the right knee: Range of motion -2 to 100. Tenderness medial joint line. Crepitus medial patellofemoral compartments. Pain with patellofemoral compression. Ligaments stable. Hip rotation without pain. Distal neurovascular exam intact. RADIOGRAPHS: Right knee radiographs reveal severe osteoarthritic changes. IMPRESSION: 1. Right knee osteoarthritis. 2. Hypertension. 3. Hyperlipidemia. 4. Hypothyroidism. PLAN: Right total knee arthroplasty. Surgery 01/29/2020. MMODL / IJN: [id number] /
[~2020-01-29 12:55] MED LIST: ACETAMINOPHEN TAB 500 MG TAB PO ONE; DEXAMETHASONE SOD PHOSPHATE 4 MG/ML 1 ML VIAL IV ONE; MELOXICAM 7.5 MG TAB PO ONE; MIDAZOLAM 2 MG/2 ML VIAL IV PRN; ONDANSETRON 4 MG/2 ML VIAL IVP ONE; ROPIVACAINE 246.25 MG, EPINEPHrine 0.5 MG, KETOROLAC 30 MG, cloNIDine HCL/PF 80 MCG, WA... MISCELLANE ONE; SCOPOLAMINE 1.5MG/72HR PATCH TRANSDERM ONE; TRANEXAMIC ACID 1,000 MG in SODIUM CHLORIDE 0.9% 100 ML IVPB ONE; fentaNYL (PF) 50 MCG/ML 2 ML AMP IV PRN
[2020-01-29] MEDS: LACTATED RINGERS 1,000 ML IV SCH ×2 (13:44→22:01)
[2020-01-29] MEDS ORDERED: PROPOFOL 10 MG/ML 20 ML VIAL IV ONE (14:52)
[2020-01-29] MEDS ORDERED: SODIUM CHLORIDE 0.9% 100 ML BAG ONE (14:52)
[2020-01-29] MEDS ORDERED: TRANEXAMIC ACID 1,000 MG/10 ML VIAL ONE (14:52)
[2020-01-29] MEDS ORDERED: MIDAZOLAM 2 MG/2 ML VIAL ONE (14:52)
[2020-01-29] MEDS ORDERED: fentaNYL (PF) 50 MCG/ML 2 ML AMP ONE (14:52)
--- NOTE | 2020-01-29 15:28 | P.ANPRN ---
Procedure Note - Anesthesia - Nerve Block Performed Right Adductor Canal Infusion Time Out Performed: Yes (1416) Date of Procedure: 01/29/20 Procedure Start Time: 14:17 Procedure Stop Time: 14:23 Location of Patient: PreOp Indication: Acute Post-Operative Pain, Requested by Surgeon Specifically requested for management of pain by DrLynsey: Jignesh Urban Sedation Type: Sedate with meaningful contact maintained Preparation: Sterile Prep Position: Supine Catheter Depth at Skin (cm): 9 Catheter: Indwelling Needle Types: Pajunk Needle Gauge: 21 Ultrasound used to visualize needle placement: Yes Ultrasound used to observe medication spread: Yes Injectate: 0.5% Ropivacaine (see comment for volume) (20cc) Blood Aspirated: No Pain Paresthesia on Injection Noted: No Resistance on Injection: Normal Image Stored and Saved: Yes Events: Uneventful and Well Tolerated
[2020-01-29] MEDS ORDERED: ceFAZolin 3,000 MG in SODIUM CHLORIDE 0.9% IRRIGATIO 3,000 ML IRRIGATION ONE (15:29)
[2020-01-29] MEDS ORDERED: ROPIVACAINE 0.2%-NS ON-Q PUMP 1,090 MG, EMPTY PAIN BALL 1 EACH MISCELLANE PRN (15:55)
[2020-01-29] MEDS ORDERED: LACTATED RINGERS 1,000 ML IV ONE (16:37)
[2020-01-29] MEDS ORDERED: NALOXONE 0.4 MG/ML 1 ML VIAL IV PRN (16:45)
[2020-01-29] MEDS ORDERED: HYDROmorphone 0.5 MG/0.5 ML SYRINGE IVP PRN ×2 (16:45)
[2020-01-29] MEDS ORDERED: ONDANSETRON 4 MG/2 ML VIAL IVP PRN (16:45)
[2020-01-29] MEDS ORDERED: HYDROcodone/APAP 5-325MG 1 EACH TAB PO PRN ×2 (16:45)
[2020-01-29] MEDS ORDERED: HYDROmorphone 1 MG/ML 1 ML SYRINGE IVP PRN (16:45)
--- NOTE | 2020-01-29 16:45 | P.OP ---
Date of Procedure: 01/29/20 Preoperative Diagnosis: Right knee osteoarthritis Postoperative Diagnosis: Right knee osteoarthritis Procedure(s) Performed: Right total knee arthroplasty Implants: 1. Depuy attune size 5 narrow right cruciate retaining cemented femur 2. Depuy attune size 5 fixed bearing cemented tibial baseplate 3. Depuy attune size 5 fixed bearing cruciate retaining 5 mm polyethylene tibial insert 4. Depuy attune 35 mm all polyethylene cemented patella Anesthesia: regional (Adductor canal catheter), local, spinal Surgeon: Jignesh Urban Police Pilot #1: Lam Mota Estimated Blood Loss (ml): 55 Pathology: other (Bone) Condition: stable Disposition: PACU Indications for Procedure: 59-year-old patient seen with symptomatic right knee osteoarthritis. After treatment options were discussed, she elected to proceed with total knee arthroplasty. Operative Findings: see description of procedure Description of Procedure: Patient was taken to the operative suite after having an adductor canal catheter placed by the department of anesthesia. Patient underwent a spinal anesthetic by the department of anesthesia. Patient was given preoperative IV intake antibiotics and TXA. A well-padded tourniquet was placed about the right lower extremity. The lower extremity was then prepped and draped in the normal sterile orthopedic fashion. The extremity was elevated, a tourniquet was insufflated to 300. A standard anterior incision was made sharply through skin. Dissection was taken down through the subcutaneous soft tissues down to the extensor mechanism. A medial arthrotomy was performed, patella was everted and knee was flexed. There was advanced osteoarthritis noted. I introduced my distal intramedullary femoral drill. I then introduced the distal femoral cu tting jig. Emre DUTTON secured the cutting jig with 2 pins. I held retractors in position while Emre DUTTON performed the distal femoral resection through the guide area we now removed her distal femoral cutting guide. We now placed our 4-in-1 femoral cutting block and positioned and it was secured with 2 pins by Emre DUTTON while I held the block in position. The distal femoral finishing was now completed. A proximal tibial cutting guide was positioned. I held the guide in the appropriate position with both hands well Emre DUTTON inserted stabilizing pins into the guide. Proximal tibial cut was made. We now placed a trial femoral component into position, along with an appropriate size tibial tray and insert. We now took the knee through range of motion and had full extension good flexion and good overall soft tissue balance noted. The patella was everted and stabilized with 2 towel clips held by Emre DUTTNO while I performed a flush with patellar quad tendon utilizing a fresh sawblade. We templated the patella, appropriate drill holes were made. An appropriate trial patella was positioned, knee was taken through full range of motion with the patella tracking very nicely. The trial patella was removed. Drill holes were made through the femoral component. All trial components were removed after marking off the appropriate rotation of the tibia. Retractors were now positioned along the proximal tibia. An appropriate keel punch was made with the appropriate size tibial guide by myself on Emre DUTTON assisted by holding retractors. At this point appropriate size implants were chosen and opened. The joint was irrigated copiously with pulse lavage mechanical irrigation. The posterior capsule was infiltrated with local analgesic. The wound was irrigated with pulse lavage mechanical irrigation. We mixed antibiotic methylmethacrylate. We placed the knee into flexion. We placed multiple retractors assisted by Emre DUTTON to expose the proximal tibia. Once the methyl methacrylate was ready, the tibial component was cemented into place removing any excess methylmethacrylate form by both myself and Emre DUTTON. The femoral component was cemented into place removing the removing any excess methylmethacrylate performed by both myself and Emre DUTTON. We then inserted the appropriate size polyethylene tibial insert. We made sure that it was locked into position. We took the knee into full extension, and then back in a flexion making sure we had removed any excess methylmethacrylate. The patellar component was then cemented down and secured with clamp. Excess methylmethacrylate removed. We kept the knee in full extension, patellar clamp in position until methylmethacrylate had hardened. Once it had hardened the patellar clamp was removed. The knee was taken through full range of motion. The patella tracked nicely. There was good soft tissue balancing. The tourniquet was now released. Additional hemostasis was achieved via electrocautery. A second gram of TXA was given. The wound again was irrigated with pulse lavage mechanical irrigation. The superficial soft tissues were infiltrated local analgesic. The extensor mechanism was repaired with Vicryl. We checked the repair with range of motion and it was stable. The subcutaneous soft tissues were repaired with Vicryl in layers. The skin was approximated with pernio/Dermabond. Sterile dressings were applied followed by loose web roll and Lionel bandage. The patient was transferred to a bed, and taken to recovery in stable and satisfactory condition. Emer DUTTON assisted with this complex procedure.
--- NOTE | 2020-01-29 17:45 | XR ---
EXAMINATION TYPE: XR knee limited RT DATE OF EXAM: 01/29/2020 COMPARISON: NONE HISTORY: Postop TECHNIQUE: 2 views FINDINGS: There is right knee prosthesis. Components appear in anatomic position. IMPRESSION: No complicating process seen.
[2020-01-29] MEDS ORDERED: SENNOSIDES-DOCUSATE SODIUM 1 EACH TAB PO SCH (21:00)
[2020-01-29] MEDS ORDERED: NITROGLYCERIN SL TABS 0.4 MG TAB SUBLINGUAL PRN (21:52)
[2020-01-29] MEDS ORDERED: IPRATROPIUM-ALBUTEROL 3 ML NEB INHALATION PRN (21:52)
[2020-01-29] MEDS ORDERED: ACETAMINOPHEN TAB 325 MG TAB PO PRN (22:25)
[2020-01-29] MEDS: MECLIZINE 25 MG TAB PO SCH (22:49)
[2020-01-30 02:15] VITALS: TEMP 97.9
[2020-01-30] MEDS: LACTATED RINGERS 1,000 ML IV SCH ×2 (04:27)
[2020-01-30] MEDS ORDERED: LEVOTHYROXINE 75 MCG TAB PO SCH (06:30)
[2020-01-30] MEDS ORDERED: LEVOTHYROXINE 100 MCG TAB PO SCH (06:30)
[2020-01-30] MEDS ORDERED: carvediloL 3.125 MG TAB PO SCH (07:30)
[2020-01-30] MEDS: MECLIZINE 25 MG TAB PO SCH (07:48)
[2020-01-30] MEDS ORDERED: NON FORMULARY DRUG (Umeclidinium Bromide [Incruse Ellipta] 62.5 MCG Blst.W.Dev) INHALATION SCH (08:00)
--- NOTE | 2020-01-30 08:12 | P.PN ---
Progress Note - Text The patient is status post right adductor canal catheter placement. The catheter was placed for postoperative pain control, status post total right arthroplasty. Ropivacaine 0.2% is infusing at 8 mLs per hour. The patient has no complaints of[right ] lower extremity numbness or weakness. Patient's VAS score is[5-6 ]-10. Assessment: Patient's adductor canal catheter is in place and working appropriately. Plan: continue infusion and adjust it as needed.
[2020-01-30 08:45] VITALS: BP 109/60; PULSE 64; RESP 18
[2020-01-30] MEDS ORDERED: ASPIRIN 81 MG PO SCH (09:00)
[2020-01-30] MEDS ORDERED: ENOXAPARIN 30 MG/0.3 ML SYRINGE SQ SCH (09:00)
[2020-01-30] MEDS ORDERED: CITALOPRAM HYDROBROMIDE 20 MG TAB PO SCH (09:00)
--- NOTE | 2020-01-30 09:27 | P.PN ---
Subjective Progress Note Date: 01/30/20 Principal diagnosis: Status post right total knee arthroplasty Patient evaluated at bedside today, she is resting comfortably. She's ambulated well with therapy. Her pain is well-controlled. She currently denies any headaches, lightheadedness, chest pain, shortness of breath, fever or chills. Objective - Vital Signs Vital signs: Vital Signs Temp 97.9 F 01/30/20 07:00 Pulse 64 01/30/20 08:00 Resp 18 01/30/20 08:00 BP 109/60 01/30/20 07:00 Pulse Ox 97 01/30/20 07:00 Intake & Output 01/29/20 01/30/20 01/30/20 18:59 06:59 18:59 Intake Total 1301 222 Output Total 55 Balance 1246 222 Weight 100.4 kg Intake: IV 1301 Oral 222 Output: Estimated Blood Loss 55 Other: # Voids 1 - Exam Right lower extremity: Incision is clean, dry, and intact. The foam dressing is in good condition. There is minimal soft tissue swelling and ecchymosis surrounding the medial and lateral aspects of the incision. Calf is soft, no tenderness with palpation. Plantar flexion, dorsiflexion, EHL, FHL are intact. Sensory exam to light touch throughout the extremity is intact, dorsal pedis pulses 2+. Assessment and Plan Assessment: Status post right total knee arthroplasty Plan: Pain control, continue current medication DVT prophylaxis, aspirin 81 mg twice a day Wound care instructions discussed Home health care after discharge Medical recommendations Plan for discharge home today Time with Patient: Less than 30
--- NOTE | 2020-01-30 09:30 | P.DS ---
Providers Date of admission: 01/29/2020 Expected date of discharge: 01/30/20 Attending physician: Jignesh Urban Primary care physician: Dieter Wheat [facility] Hospital Course: Date of admission: 01/29/2020 Date of discharge: 01/30/2020] Admission diagnosis: Status post right total knee arthroplasty Discharge diagnosis: Same Attending physician: Dr. Urban Surgical procedures: Right total knee arthroplasty Brief history: Patient is a 59-year-old female with a history of progressive primary right knee osteoarthritis. At this point patient has failed conservative treatment measures and has opted to proceed with a elective right t otal knee arthroplasty. Hospital course: Details of patient's surgery can be found in operative report. Patient tolerated the procedure well and was subsequently transported to orthopedic floor. Patient's orthopeidc and medical care was provided daily. Patient had daily laboratory tests performed for evaluation of overall blood counts. Patient had daily physical therapy to include strengthening range of motion as well as education with walker ambulation. Patient was treated with Lovenox for their postoperative DVT prophylaxis during their inpatient stay. Patient was noted to have a relatively uneventful postoperative course. Patient reported satisfactory pain control with oral pain medications by postoperative day 0. Patient showed satisfactory progress with physical therapy. Patient moved steadily through the program and had no difficulty meeting the goals by postoperative day 1. Given patient's otherwise satisfactory course and having met physical therapy goals, plan is to discharge patient home on postoperative day 1. Discharge condition/disposition: Patient will be discharged home in stable condition. Discharge medications: Instructions are given on resumption of patient's normal daily medications per primary care recommendation, in addition patient will be prescribed [place] 7.5 mg/325 mg, Colace 100 mg. Discharge instructions: 1. Wound care and infection precautions, keep incision dry and covered while showering, no lotions, creams, moisturizers. No soaking, tubs, pools, hottubs. Do not scrub over the incision. 2. Weight-bear as tolerated with walker / cane until follow-up. 3. Ice and elevate when necessary. Do not exceed 20 minutes per hour with ice pack. 4. Utilize compression sleeve until seen at first follow up appointment. 5. Visiting nursing care. 6. Home physical therapy including home CPM. 7. Pain meds and anticoagulants per prescription. 8. Pain medication has potential to cause constipation. Increase oral fluid and fiber intake. Contact primary care provider if you have not had a bowel movement within 48 hours after discharge 9. No anti-inflammatory medication until discussed at first post operative visit, this including Motrin, Aleve, Mobic, Diclofenac. 10. Follow up in office at 2 weeks postop with Emre Mota PA-C 11. Follow up with your primary care doctor 7-10 days after discharge. 12. Contact [facility] with any questions, . Procedures: Right total knee arthroplasty Patient Condition at Discharge: Good Plan - Discharge Summary Discharge Rx Participant: No New Discharge Prescriptions: New Aspirin [Adult Low Dose Aspirin EC] 81 mg PO BID #60 tablet. Docusate [Colace] 100 mg PO DAILY #30 capsule HYDROcodone/APAP 7.5-325MG [[place] 7.5] 1 - 2 each PO Q6HR PRN #42 tab PRN Reason: Pain Discontinued Aspirin EC [Ecotrin Low Dose] 81 mg PO DAILY No Action Nitroglycerin Sl Tabs [Nitrostat] 0.4 mg SUBLINGUAL Q5M PRN #20 tab PRN Reason: Chest Pain Losartan Potassium [Cozaar] 25 mg PO HS Umeclidinium [place] [Incruse Ellipta] 1 puff INHALATION RT-DAILY Ipratropium/Albuterol Sulfate [Combivent Respimat Inhaler] 1 puff INHALATION RT-QID PRN PRN Reason: Shortness Of Breath carvediloL [Coreg] 3.125 mg PO BID-W/MEALS #60 tab Citalopram Hydrobromide [CeleXA] 40 mg PO DAILY Levothyroxine Sodium [Synthroid] 175 mcg PO DAILY Atorvastatin [Lipitor] 80 mg PO HS Meclizine [Antivert] 25 mg PO TID #20 tab Discharge Medication List Nitroglycerin Sl Tabs [Nitrostat] 0.4 mg SUBLINGUAL Q5M PRN #20 tab 08/12/13 [Rx] Ipratropium/Albuterol Sulfate [Combivent Respimat Inhaler] 1 puff INHALATION RT- QID PRN 06/24/17 [History] Losartan Potassium [Cozaar] 25 mg PO HS 06/24/17 [History] Umeclidinium [place] [Incruse Ellipta] 1 puff INHALATION RT-DAILY 06/24/17 [History] carvediloL [Coreg] 3.125 mg PO BID-W/MEALS #60 tab 06/27/17 [Rx] Atorvastatin [Lipitor] 80 mg PO HS 10/22/18 [History] Citalopram Hydrobromide [CeleXA] 40 mg PO DAILY 10/22/18 [History] Levothyroxine Sodium [Synthroid] 175 mcg PO DAILY 10/22/18 [History] Meclizine [Antivert] 25 mg PO TID #20 tab 10/22/18 [Rx] Aspirin [Adult Low Dose Aspirin EC] 81 mg PO BID #60 tablet. 01/30/20 [Rx] Docusate [Colace] 100 mg PO DAILY #30 capsule 01/30/20 [Rx] HYDROcodone/APAP 7.5-325MG [[place] 7.5] 1 - 2 each PO Q6HR PRN #42 tab 01/30/20 [Rx] Follow up Appointment(s)/Referral(s): Dieter Wheat DO [Primary Care Provider] - 1 Week Lam Mota PAC [PHYSICIAN FOREST OFFICER] - 02/14/20 2:00 pm Activity/Diet/Wound Care/Special Instructions: Orthopedic Discharge Instructions: 1. Okay to remove foam dressing on , okay to shower then. Until then keep the foam dressing covered and dry while showering 2. Weight-bear as tolerated with walker / cane until follow-up. 3. Ice and elevate when necessary. Do not exceed 20 minutes per hour with ice pack. 4. Utilize compression sleeve until seen at first follow up appointment. 5. Pain meds and anticoagulants per prescription. 6. Pain medication has potential to cause constipation. Increase oral fluid and fiber intake. Contact primary care provider if you have not had a bowel movement within 48 hours after discharge. 7. No anti-inflammatory medication until discussed at first post operative visit, this including Motrin, Aleve, Mobic, Diclofenac. 8. Follow up in office at 2 weeks postop with Emre Mota PA-C 9. Follow up with your primary care doctor 7-10 days after discharge. 10. Contact [facility] with any questions, . Discharge Disposition: HOME WITH HOME HEALTH SERVICES
[2020-01-30 09:42] LABS: Basophils % (A) 0 %; Eosinophils # (A) 0.1 k/uL (0-0.7); Eosinophils % (A) 1 %; HCT 34.5 % (34.0-46.0); HGB 10.8 gm/dL (11.4-16.0); Lymphocytes # (A) 1.8 k/uL (1.0-4.8); Lymphocytes % (A) 17 %; MCH 28.1 pg (25.0-35.0); MCHC 31.1 g/dL (31.0-37.0); MCV 90.2 fL (80.0-100.0); Mean Platelet Volume 8.3; Monocytes # (A) 0.5 k/uL (0-1.0); Monocytes % (A) 4 %; Neutrophils # (A) 8.5 k/uL (1.3-7.7); Neutrophils % (A) 77 %; Platelet Count 257 k/uL (150-450); RBC 3.83 m/uL (3.80-5.40)
--- NOTE | 2020-01-30 10:13 | CONS ---
CONSULTATION REASON FOR CONSULTATION: Advice regarding GERD, DJD, and other medical issues, requested by Dr. Urban. HISTORY OF PRESENT ILLNESS: This is a 59-year-old woman with a past history of GERD, DJD, hypothyroidism, cholecystectomy, CAD, stent being followed by Dr. Dieter Wheat in the outpatient setting. Underwent right total knee arthroplasty by Dr. Urban. The patient tolerated the procedure well. There is no history of fever, rigors. No history of chest pain, palpitation at this time. PAST MEDICAL HISTORY: History GERD, DJD, hypothyroidism, cholecystectomy, history of CAD/stent. HOME MEDICATIONS: Coreg, Ellipta, Nitrostat, Antivert, Cozaar, Synthroid, Combivent, Celexa, Lipitor, Ecotrin. ALLERGIES: VICODIN. FAMILY HISTORY: History of CAD, hypertension, myocardial infarction in the family. SOCIAL HISTORY: Previous history of smoking. No history of alcohol intake. REVIEW OF SYSTEMS: ENT: No diminished vision. Diminished hearing. CARDIOVASCULAR SYSTEM: No angina. RESPIRATION: No cough. GI No nausea. : No dysuria. NERVOUS SYSTEM: No numbness or weakness. ALLERGY/IMMUNOLOGY: No asthma or hayfever. MUSCULOSKELETAL: As mentioned earlier. HEMATOLOGY/ONCOLOGY: No history of anemia. ENDOCRINE: No history of diabetes or hypothyroidism. CONSTITUTIONAL: As mentioned earlier. DERMATOLOGY: Negative. RHEUMATOLOGY: Negative. PSYCHIATRY: As mentioned earlier. PHYSICAL EXAMINATION: Alert and oriented x3, pulse 64, blood pressure 109/60, respiration 14, temperature is 98 degrees, pulse ox 98% on 2 L. HEENT: Conjunctivae normal. Oral mucosa moist. NECK: No jugular venous distention. No lymph node enlargement. CARDIOVASCULAR: S1, S2. RESPIRATORY: Breath sounds diminished at the bases. A few scattered rhonchi, no crackles. ABDOMEN: Soft, nontender. No mass palpable. LEGS: Status post right total knee arthroplasty. NERVOUS SYSTEM: Higher functions as mentioned earlier. Moves all 4 limbs. LYMPHATICS: No lymph node enlargement in the neck or axillae. SKIN: No rash. JOINTS: No active arthropathy. LABS: At this time shows the preop labs are CBC and chemistry was within normals limits. ASSESSMENT: 1. Status post right total knee arthroplasty. 2. History of GERD. 3. History of DJD. 4. Hypothyroidism. 5. History of cholecystectomy. 6. History of CAD/stent. 7. History of depression. 8. History of nicotine dependence. RECOMMENDATION: Recommend to continue current management and symptomatic treatment. Resume the home medications. DVT prophylaxis. Incentive spirometry. Will follow the patient closely with you and patient may be asked to follow with Dr. Dieter Wheat closely after discharge. Thank you, Dr. Urban for letting us participate in the care of this patient. MMODL / IJN: [id number] / CITLALI
[2020-01-30] MEDS ORDERED: ATORVASTATIN 80 MG TAB PO SCH (21:00)
[2020-01-30] MEDS ORDERED: LOSARTAN 25 MG TAB PO SCH (21:00)
--- NOTE | 2020-01-30 23:22 | PN ---
PROGRESS NOTE DATE OF SERVICE: 01/30/2020 This 59-year-old woman who was admitted after right total knee arthroplasty is improving significantly. No chest pain. No palpitations. No fever. PHYSICAL EXAMINATION: Alert and oriented x3. Pulse is 64, blood pressure 109/60, respiration 18, temperature 97.9, pulse ox 97% on room air. HEENT: Conjunctivae normal. NECK: No jugular venous distention. CARDIOVASCULAR SYSTEM: S1, S2 muffled. RESPIRATORY SYSTEM: Breath sounds diminished at the bases. A few scattered rhonchi and crackles. ABDOMEN: Soft, non-tender. LEGS: No edema. No swelling. NERVOUS SYSTEM: No focal deficit. LABS: WBC 11, hemoglobin is 10.8. ASSESSMENT: 1. Status post right total knee joint arthroplasty. 2. History of gastroesophageal reflux disease. 3. History of degenerative joint disease. 4. Hypothyroidism. 5. History of cholecystectomy. 6. History of coronary artery disease, stent. 7. History of depression. 8. History of nicotine dependence. RECOMMENDATIONS AND DISCUSSION: I recommend to continue current medications, continue with the monitoring, symptomatic treatment. Recommend close followup with the primary physician. Otherwise, rest of the recommendations per Orthopedic Surgery. Incentive spirometry. DVT prophylaxis. Further recommendations to follow. MMODL / IJN: [id number] /
== END 2020-01-30 10:56 | disposition home health service (06) ==
LOC: OR 12:55 → 5NMEDONC 18:42 → OR 01-30 10:56
PROVIDERS: ATTEND Orthopaedic Surgery
DX: M17.11 Unilateral primary osteoarthritis, right knee (principal); I25.10 Atherosclerotic heart disease of native coronary artery without angina pectoris; I10 Essential (primary) hypertension; I25.5 Ischemic cardiomyopathy; E78.2 Mixed hyperlipidemia; I08.3 Combined rheumatic disorders of mitral, aortic and tricuspid valves; E03.9 Hypothyroidism, unspecified; K21.9 Gastro-esophageal reflux disease without esophagitis; F32.9 Major depressive disorder, single episode, unspecified; G47.30 Sleep apnea, unspecified; Z95.5 Presence of coronary angioplasty implant and graft; Z79.82 Long term (current) use of aspirin; Z79.899 Other long term (current) drug therapy; Z79.890 Hormone replacement therapy; Z88.5 Allergy status to narcotic agent; Z88.8 Allergy status to other drugs, medicaments and biological substances; Z87.891 Personal history of nicotine dependence; Z90.49 Acquired absence of other specified parts of digestive tract; Z82.49 Family history of ischemic heart disease and other diseases of the circulatory system; Z98.890 Other specified postprocedural states
CPT/HCPCS: 97110; 97161; 64448; 76942; 85025; 73560; 27447; C1776; C1713; J2250; J0171; J1100; J0690 ×3; J2405; J3010; J1885; J1650; J2795 ×2; J0735; 88300

== ENCOUNTER → 2020-07-25 | Outpatient (CLI) | payer OTHER ==
[2020-07-26 03:53] LABS: African American GFR (CKD) 110.7 (60.0-200.0); Albumin 4.1 g/dL (3.80-4.90); Albumin/Globulin Ratio 1.46 (1.60-3.17); Anion Gap 10.1 mmol/L (4.00-12.00); BUN/Creat Ratio 22.86 Ratio (12.00-20.00); Calcium 9.2 mg/dL (8.7-10.3); Carbon Dioxide 22.9 mmol/L (21.6-31.8); Chol/HDL Ratio 3.88; Globulin 2.8 g/dL (1.6-3.3); LDL Cholesterol,Calculated 78.6 mg/dL (0.0-131.0); Non-African American GFR(CKD) 95.5 (60.0-200.0); Potassium 5.5 mmol/L (3.5-5.5); Total Bilirubin 0.5 mg/dL (0.2-1.2); Total Protein 6.9 g/dL (6.2-8.2); VLDL Calculation 19.4 mg/dL (5.00-40.00)
== END | disposition home or self-care (01) ==
LOC: LABWHC1 10:28
PROVIDERS: ATTEND Nurse Practitioner Adult Health
DX: I10 Essential (primary) hypertension (principal); E78.2 Mixed hyperlipidemia
CPT/HCPCS: 36415; 80053; 80061

== ENCOUNTER → 2020-10-25 | Outpatient (CLI) | payer OTHER ==
--- NOTE | 2020-10-29 08:20 | MM ---
Reason for exam: screening (asymptomatic). Last mammogram was performed 1 year and 2 months ago. History: Patient is postmenopausal and is nulliparous. Physical Findings: A clinical breast exam by your physician is recommended on an annual basis and results should be correlated with mammographic findings. MG Screening Mammo w CAD Bilateral CC and MLO view(s) were taken. Prior study comparison: August 25, 2019, bilateral MG screening mammo w CAD. March 10, 2018, bilateral MG screening mammo w CAD. There are scattered fibroglandular densities. No significant changes when compared with prior studies. ASSESSMENT: Benign, BI-RAD 2 RECOMMENDATION: Routine screening mammogram of both breasts in 1 year.
== END | disposition home or self-care (01) ==
LOC: RADMAMWWP 13:50
PROVIDERS: ATTEND Family Medicine
DX: Z12.31 Encounter for screening mammogram for malignant neoplasm of breast (principal); Z78.0 Asymptomatic menopausal state
CPT/HCPCS: 77067

== ENCOUNTER 2021-01-19 13:06 | Emergency (ER) | payer OTHER ==
[2021-01-19 13:21] VITALS: BP 120/67; PULSE 79; RESP 18; TEMP 98.7
[2021-01-19] MEDS ORDERED: KETOROLAC 15 MG/ML 1 ML VIAL IM STA (13:33)
--- NOTE | 2021-01-19 13:51 | ED ---
General Adult HPI - General Chief complaint: Extremity Injury, Lower Stated complaint: hip pain Time Seen by Provider: 01/19/21 13:23 Source: patient, RN notes reviewed Mode of arrival: wheelchair Limitations: physical limitation - History of Present Illness Initial comments: 60-year-old female with a past medical history of GERD presents to the emergency room for a chief complaint of left hip pain. Patient states this started about a week ago and then worsened today. Patient states she has been using a cane to walk because it is painful to walk on but she is able to do so. Patient denies any injuries or falling. Patient has full range of motion of the hip. Most of the pain is in the left buttock and left posterior lateral hip.Patient has no other complaints at this time including shortness of breath, chest pain, abdominal pain, nausea or vomiting, headache, or visual changes. - Related Data Home Medications Medication Instructions Recorded Confirmed Ipratropium/Albuterol Sulfate 1 puff INHALATION RT-QID PRN 06/24/17 01/29/20 [Combivent Respimat Inhaler] Losartan Potassium [Cozaar] 25 mg PO HS 06/24/17 01/29/20 Umeclidinium [place] [Incruse 1 puff INHALATION RT-DAILY 06/24/17 01/29/20 Ellipta] Atorvastatin [Lipitor] 80 mg PO HS 10/22/18 01/29/20 Citalopram Hydrobromide [CeleXA] 40 mg PO DAILY 10/22/18 01/29/20 Levothyroxine Sodium [Synthroid] 175 mcg PO DAILY 10/22/18 01/29/20 Previous Rx's Medication Instructions Recorded Nitroglycerin Sl Tabs [Nitrostat] 0.4 mg SUBLINGUAL Q5M PRN #20 tab 08/12/13 carvediloL [Coreg] 3.125 mg PO BID-W/MEALS #60 tab 06/27/17 Meclizine [Antivert] 25 mg PO TID #20 tab 10/22/18 Aspirin [Adult Low Dose Aspirin EC] 81 mg PO BID #60 tablet. 01/30/20 Docusate [Colace] 100 mg PO DAILY #30 capsule 01/30/20 HYDROcodone/APAP 7.5-325MG [[place] 1 - 2 each PO Q6HR PRN #42 tab 01/30/20 7.5] predniSONE 50 mg PO DAILY #5 tablet 01/19/21 Allergies Allergy/AdvReac Type Severity Reaction Status Date / Time hydrocodone bitartrate AdvReac VERY Verified 01/19/21 13:21 [From Vicodin] RESTLESS, ANXIETY Review of Systems ROS Statement: Those systems with pertinent positive or pertinent negative responses have been documented in the HPI. ROS Other: All systems not noted in ROS Statement are negative. Past Medical History Past Medical History: GERD/Reflux, Osteoarthritis (OA), Thyroid Disorder Last Myocardial Infarction Date:: 2013 History of Any Multi-Drug Resistant Organisms: None Reported Past Surgical History: Cholecystectomy, Heart Catheterization With Stent Past Anesthesia/Blood Transfusion Reactions: No Reported Reaction Date of Last Stent Placement:: 08/10/13 Past Psychological History: Depression Smoking Status: Former smoker Past Alcohol Use History: None Reported Past Drug Use History: None Reported - Past Family History Mother Family Medical History: Coronary Artery Disease (CAD), Hypertension, Myocardial Infarction ([place]) Father Family Medical History: Cancer General Exam Limitations: physical limitation General appearance: alert, in no apparent distress Head exam: Present: atraumatic Eye exam: Present: normal appearance, PERRL, EOMI. Absent: scleral icterus, conjunctival injection ENT exam: Present: normal exam, mucous membranes moist Neck exam: Present: normal inspection, full ROM. Absent: tenderness Respiratory exam: Present: normal lung sounds bilaterally. Absent: respiratory distress, wheezes Cardiovascular Exam: Present: regular rate, normal rhythm, normal heart sounds GI/Abdominal exam: Present: soft, normal bowel sounds. Absent: distended, tende rness Extremities exam: Present: full ROM (Range of motion of the left leg including hip and knee.), normal capillary refill (Capillary refill less than 2 seconds, DP pulse 2+). Absent: tenderness (No significant tenderness along the left buttock or hip), joint swelling Back exam: Absent: CVA tenderness (R), CVA tenderness (L), paraspinal tendern ess, vertebral tenderness Neurological exam: Present: alert Course Vital Signs 01/19/21 13:18 Temperature 98.7 F Pulse Rate 79 Respiratory 18 Rate Blood Pressure 120/67 O2 Sat by Pulse 98 Oximetry Medical Decision Making - Medical Decision Making Vitals are stable. Patient is well-appearing. Neurovascular status intact left lower extremity. Full range of motion of the left hip. X-ray of the left hip shows no acute fracture or dislocation. There is some arthritis. I do suspect patient's pain could be sciatic in nature. We will start her on steroids. She'll be given Tylenol 3 for breakthrough pain. She did have significant relief after Toradol. Patient will be referred to orthopedics for possible MRI. Will return here for any worsening symptoms. Disposition Clinical Impression: Hip pain, left Disposition: HOME SELF-CARE Condition: Good Instructions (If sedation given, give patient instructions): Hip Pain (ED) Additional Instructions: Please take steroid as directed. Please follow-up with your doctor and orthopedics in one to 2 days. Return to the emergency room for any worsening symptoms. Prescriptions: predniSONE 50 mg PO DAILY #5 tablet Is patient prescribed a controlled substance at d/c from ED?: No Referrals: Dieter Wheat DO [Primary Care Provider] - 1-2 days Pola Garcia MD [STAFF PHYSICIAN] - 1-2 days Time of Disposition: 14:42
--- NOTE | 2021-01-19 14:05 | XR ---
EXAMINATION TYPE: XR Hip LT and AP Pelvis DATE OF EXAM: 01/19/2021 COMPARISON: NONE HISTORY: Pain for 3 days TECHNIQUE: A single AP view of the pelvis is obtained. Two views of the left hip are obtained. FINDINGS: There is no acute fracture/dislocation evident in the pelvis. The hip and sacroiliac join ts appear symmetric and there is sclerosis, hypertrophic change at the sacroiliac joints, sclerosis a t the symphysis pubis. The overlying soft tissue appears unremarkable. Two views of left hip show no acute fracture or dislocation. No focal lytic or sclerotic lesion seen in the proximal left femur. The overlying soft tissue is unremarkable. Degenerative disc changes a re present in the lower lumbar spine. IMPRESSION: There is no acute fracture or dislocation in the pelvis or left hip. Suspect some osteoa rthritic change at the sacroiliac joints. Correlate to exclude inflammation at the symphysis pubis.
[2021-01-19] MEDS ORDERED: predniSONE 50 MG TAB PO STA (14:43)
== END 2021-01-19 14:57 | disposition home or self-care (01) ==
LOC: EC 13:06
DX: M25.552 Pain in left hip (principal); M19.90 Unspecified osteoarthritis, unspecified site; F32.9 Major depressive disorder, single episode, unspecified; Z87.891 Personal history of nicotine dependence
CPT/HCPCS: 73502; 99283; 96372; J1885; J7512

== ENCOUNTER → 2021-03-07 | Outpatient (CLI) | payer OTHER ==
--- NOTE | 2021-03-07 09:09 | CT ---
EXAMINATION TYPE: CT lumbar spine wo con DATE OF EXAM: 03/07/2021 8:13 AM COMPARISON: None HISTORY: lumbar stenosis, low back pain CT DLP: 1402.5 mGycm Automated exposure control for dose reduction was used. Unenhanced CT of the lumbar spine was performed. Bone and soft tissue window settings are submitted as well as coronal and sagittal reconstructions. L1-L2: Mild loss of disc space with anterior hypertrophic spurring. Mild set arthropathy. Broad-based disc bulging and hypertrophy of the ligamentum flavum. L2-L3: Disc bulging with moderate degenerative disc disease and hypertrophic change of the facets and hypertrophic spurring anteriorly. Ligamentum flavum hypertrophy results in canal stenosis and bilate ral foraminal encroachment. L3-L4: Diffuse disc bulging with facet arthropathy appears to be advanced. Ligamentum flavum hypertro phy with canal stenosis and bilateral moderate foraminal encroachment. L4-L5: Broad-based disc protrusion. Severe canal stenosis suspected with advanced facet arthropathy a nd ligamentum flavum hypertrophy. Lateral recess stenosis bilaterally with severe bilateral foraminal encroachment. Grade 1 anterolisthesis likely degenerative. L5-S1: Degenerative disc disease with broad-based central disc bulging and hypertrophy of the facets and ligamenta flava resulting in canal stenosis and bilateral foraminal encroachment. Extensive vascular calcifications are seen. Aorta of normal caliber. There is a mass involving the ri ght adrenal gland measuring about is 15 Hounsfield units and 1.6 cm. IMPRESSION: 1. Multilevel degenerative disc disease and facet arthropathy with grade 1 anterolisthesis L4 and L5. 2. Multilevel disc bulging or protrusions result in multilevel canal stenosis and foraminal encroachm ent as discussed above. Most marked findings at L4-L5 with severe canal stenosis and bilateral forami nal encroachment.. 3. There is sclerosis involving the sacroiliac joints bilaterally with findings suggestive of bilater al advanced. Sacroiliitis. Correlate clinically. Correlate with MRI. 4. Right adrenal adenoma measuring 1.6 cm.
== END | disposition home or self-care (01) ==
LOC: RADCTMAIN 07:24
PROVIDERS: ATTEND Physical Medicine & Rehabilitation
DX: M43.16 Spondylolisthesis, lumbar region (principal); M51.36 Other intervertebral disc degeneration, lumbar region; M48.061 Spinal stenosis, lumbar region without neurogenic claudication; M47.816 Spondylosis without myelopathy or radiculopathy, lumbar region; D35.01 Benign neoplasm of right adrenal gland
CPT/HCPCS: 72131

== ENCOUNTER → 2021-03-07 | Outpatient (CLI) | payer OTHER ==
[2021-03-07 17:20] LABS: ALT 12 U/L (8-44); AST 15 U/L (13-35); African American GFR (CKD) 118.4 (60.0-200.0); Albumin 3.9 g/dL (3.8-4.9); Albumin/Globulin Ratio 1.28 (1.60-3.17); Alkaline Phosphatase 85 U/L (41-126); BUN/Creat Ratio 18.96 Ratio (12.00-20.00); Blood Urea Nitrogen 10.6 mg/dL (9.0-27.0); Calcium 9.1 mg/dL (8.7-10.3); Carbon Dioxide 22.2 mmol/L (20.0-27.5); Chloride 104 mmol/L (96-109); Globulin 3.1 g/dL (1.6-3.3); Glucose 103 mg/dL (70-110); LDL Cholesterol,Calculated 81.7 mg/dL (0.0-131.0); Non-African American GFR(CKD) 102.1 (60.0-200.0); Potassium 4.5 mmol/L (3.5-5.5); Sodium 138 mmol/L (135-145); Total Protein 6.9 g/dL (6.2-8.2)
== END | disposition home or self-care (01) ==
LOC: LABWHC1 08:23
PROVIDERS: ATTEND Nurse Practitioner Adult Health
DX: I10 Essential (primary) hypertension (principal); E78.2 Mixed hyperlipidemia
CPT/HCPCS: 36415; 80053; 80061

== ENCOUNTER → 2021-04-07 | Outpatient (CLI) | payer OTHER ==
[2021-04-07 10:01] VITALS: BP 137/84; PULSE 79; RESP 18; TEMP 97.9
--- NOTE | 2021-04-07 11:19 | P.CON ---
Consult Note - . Consult date: 04/07/21 Assessment/Plan:: HISTORY OF PRESENT ILLNESS: 60 year old female as a referral from Dr Pagan presents today with lower back pain secondary to lumbar degenerative disc disease, spinal canal stenosis, anterolisthesis, neuroforaminal stenoses and facet arthropathy for evaluation. Pt states her lower back pain is typically a 7 /10 in intensity, dull, achy and "crushing" in the lower lumbar spine and shoots towards the left hip in a sharp stabbing sensation. States it is provoked with twisting, lifting and bending. It is relieved with OTC Tylenol, Biofreeze gel, ice, heat, and home based stretching. PMH: COPD, Obstructive Sleep Apnea PSH: Cardiac Stent Placements, R Knee Surgery SH: Hx of Tobacco Use, No ETOH or illicit drug use. Lives with mom and has siblings. FH: Nephew with scoliosis All: See list Meds: See list REVIEW OF ORGAN SYSTEMS: CONSTITUTIONAL: No fevers or chills. No recent weight loss. HEENT: No visual acuity loss, eye pain, difficulties with hearing. No nosebleeds. No difficulty swallowing. RESPIRATORY: Denies any troubles with breathing or dyspnea on exertion. CARDIOVASCULAR: Denies any chest pain, palpitations, or recent heart attacks. GASTROINTESTINAL: Denies fatty food intolerance. Has change in bowel habits and gas bloat. GENITOURINARY: Denies any blood in urine. Has increased urinary frequency. NEUROLOGICAL: + numbness and tingling along the distal extremities. No seizure disorders or headaches. MUSCULOSKELETAL: + back pain SKIN: No skin cancer. No rash. PSYCHIATRIC: Denies current depression or suicidal thoughts. ENDOCRINE: Denies current thyroid disorders. Denies any blood sugar glucose intolerance. HEME/LYMPHATIC: Denies any lumps and bumps around the neck. History of deep venous thrombosis. ALLERGY/IMMUNOLOGY: No immunoglobulin therapy. No immune deficiencies. BREAST: Denies current breast lumps, pain or nipple discharge. Physical Examinations : Constitutional : Cooperative , not in acute distress . HEENT: Neck supple. No Lymphadenopathy. Normal thyroid size . Eyes no ptosis , no icterus, no photophobia . Hearing intact. Normal oropharynx. No Thrush. Respiratory : Chest clear to auscultations bilaterally. No wheezing. No rhonchi. Cardiovascular : Regular rate and rhythm , S1 / S2. No S3 . No S4. Gastrointestinal : Abdomen soft. No tenderness. Bowel sounds x 4. No organomegaly . Genitourinary : Deferred. Neurologic : Cranial nerve II to XII intact. No focal neurological deficits. Psychiatric : alert & oriented x 3. Matching mood & appropriate affect. Judgment & insight intact. Lymphatic No Lymphadenopathy. Musculoskeletal : Cervical Spine Motor strength in the deltoid and biceps: Normal right side. Normal Left side Motor strength biceps and the wrist extensors: Normal right side . Normal left side Motor strength in the triceps muscle: Normal right side. Normal left side Deep tendon reflexes: Normal at the biceps. Normal at Brachioradialis. Normal at triceps Cervical facet loading test: positive bilaterally Spurling test: positive bilaterally Neck distraction test: positive bilaterally Jung sign: positive bilaterally Lumbar spine Motor strength lower extremities ,thigh and legs 5/5 Right side , 5/5 Left side Deep tendon reflexes : Normal Knee Jerk. Normal Ankle Jerk Lumbar facet Loading Test: positive Rig ht / positive Left over L3, L4, L5 Range of motion of the lumbar spine Flexion 60 degrees, extension 10 degrees Straight Leg Raise test: Left/ Right positive at degree Radha test: positive right / positive left. Severe tenderness over the Sacroiliac joint on the Right / Left sides Gaenslen test: positive on the left Seated flexion test: positive bilaterally. IMAGING MRI Lumbar Spine 03/07/21 : L1-L2 mild loss of disc space with spurring, mild arthropathy and broad based disc bulging; L2-L3 disc bulging with moderate degenerative disc disease, spurring and bilateral foraminal encroachment; L3-L4 diffuse disc bulging with facet arthropathy, spinal stenosis and bilateral moderate foraminal encroachment; L4-L5 broad based disc protrusion, severe canal stenosis with facet arthropathy and sever bilateral foraminal encroachment with anterolisthesis; L5-S1 degenerative disc disease with broad based central disc bulging with facet hypertrophy and canal stenosis and bilateral foraminal encroachment. Assessment/ Plan : Recommendation of MBBs of L L3-L4, L4-L5, L5-S1 Discussed may need a series of 2 or 3, or may need an RFA in the future Denies use of aspirin or anticoagulants Continue all medications as directed I have spent greater than 50 minutes on patient care today. Dr Lance was available by phone for the evaluation of this patient. The time was used to review the medical records including relevant urine studies and Prescription history (MAPs), review of the available imaging, evaluation and examination of the patient, coordination of care with the medical staff and if applicable referring physicians, as well as creation of the medical record PQRS Measure Charge Sheet Mode of Arrival: Ambulatory - Pain Location Lower Back Non-Pharmacological Interventions: Heat, Home Exercise, Ice, Inactivity, Stretching Pharmacological Interventions: Medication, PRN Medication PQRS Narrative: Smoking Status Former smoker Blood Pressure 137/84 Pain Intensity [Lower Back] 7 Scale Used Numeric (1 - 10) Hx Alcohol Use (MH) No Home Medications: Ambulatory Orders Ipratropium/Albuterol Sulfate [Combivent Respimat Inhaler] 1 puff INHALATION RT- QID PRN 06/24/17 Umeclidinium [place] [Incruse Ellipta] 1 puff INHALATION RT-DAILY 06/24/17 carvediloL [Coreg] 3.125 mg PO BID-W/MEALS #60 tab 06/27/17 Atorvastatin [Lipitor] 80 mg PO HS 10/22/18 Levothyroxine Sodium [Synthroid] 175 mcg PO DAILY 10/22/18 Aspirin [Adult Low Dose Aspirin EC] 81 mg PO BID #60 tablet. 01/30/20 Desvenlafaxine [Pristiq ER] 100 mg PO DAILY 04/02/21 Omeprazole [PriLOSEC] 20 mg PO AC-BID 04/02/21
== END ==
LOC: PNWHC3 09:33
PROVIDERS: ATTEND Physician Assistant Medical
DX: M51.36 Other intervertebral disc degeneration, lumbar region (principal); M48.061 Spinal stenosis, lumbar region without neurogenic claudication; M43.16 Spondylolisthesis, lumbar region; J44.9 Chronic obstructive pulmonary disease, unspecified; Z87.891 Personal history of nicotine dependence; Z88.5 Allergy status to narcotic agent
CPT/HCPCS: 99211

== ENCOUNTER → 2021-07-25 | Outpatient (CLI) | payer OTHER | END | disposition home or self-care (01) | LOC: LABPAT 11:56 | PROVIDERS: ATTEND Orthopaedic Surgery | DX: Z01.812 Encounter for preprocedural laboratory examination (principal); M17.12 Unilateral primary osteoarthritis, left knee; Z22.322 Carrier or suspected carrier of Methicillin resistant Staphylococcus aureus | CPT/HCPCS: 87070 ==

== ENCOUNTER → 2021-09-08 | Outpatient (CLI) | payer OTHER | END | disposition home or self-care (01) | LOC: LABWHC1 09:51 | PROVIDERS: ATTEND Internal Medicine Interventional Cardiology | DX: E78.2 Mixed hyperlipidemia (principal) | CPT/HCPCS: 36415; 80061 ==

== ENCOUNTER 2021-09-10 06:43 | Day surgery (SDC) | payer OTHER ==
[2021-09-09 09:24] VITALS: BMI 36.0
[~2021-09-10 06:43] MED LIST changes: -ACETAMINOPHEN TAB 500 MG TAB PO ONE; -DEXAMETHASONE SOD PHOSPHATE 4 MG/ML 1 ML VIAL IV ONE; +LACTATED RINGERS 1,000 ML IV SCH; +LIDOCAINE 1% (10MG/ML) FOR IV START INTRADERMA PRN; -MELOXICAM 7.5 MG TAB PO ONE; -MIDAZOLAM 2 MG/2 ML VIAL IV PRN; -ONDANSETRON 4 MG/2 ML VIAL IVP ONE; -ROPIVACAINE 246.25 MG, EPINEPHrine 0.5 MG, KETOROLAC 30 MG, cloNIDine HCL/PF 80 MCG, WA... MISCELLANE ONE; -SCOPOLAMINE 1.5MG/72HR PATCH TRANSDERM ONE; -TRANEXAMIC ACID 1,000 MG in SODIUM CHLORIDE 0.9% 100 ML IVPB ONE; -fentaNYL (PF) 50 MCG/ML 2 ML AMP IV PRN
[2021-09-10 07:13] VITALS: RESP 16; TEMP 97
[2021-09-10] MEDS ORDERED: PROPOFOL 10 MG/ML 20 ML VIAL IV ONE (07:48)
[2021-09-10] MEDS ORDERED: LIDOCAINE 2% INJ 20 MG/ML (2 ML VIAL) ONE (07:48)
--- NOTE | 2021-09-10 08:08 | P.PCN ---
Date of Procedure: 09/10/21 Procedure(s) Performed: Brief history: Patient is a pleasant 60-year-old white female scheduled for an elective upper endoscopy as well as colonoscopy as a part of evaluation of iron deficiency anemia. Procedure performed: Esophagogastroduodenoscopy with biopsy Colonoscopy Preoperative diagnosis: Iron deficiency anemia Anesthesia: MAC Procedure: After informed consent was obtained from the patient was brought into the endoscopy unit and IV sedation was administered by anesthesia under continuous monitoring. Initially upper endoscopy was done. The Olympus GF 160 video endoscope was inserted inserted into the mouth and esophagus intubated without any difficulty and was gradually advanced into the stomach and duodenum and carefully examined. The bulb and second part of the duodenum appeared normal. Biopsies were done from the duodenum to rule out celiac disease. The scope was then withdrawn into the stomach adequately insufflated with air and upon careful examination the antrum had mild gastritis and biopsies were done from this area. body, cardia and fundus appeared normal. The scope was then withdrawn into the esophagus. The GE junction was located at 32 cm to the incisors. Moderate size hiatal hernia noted. There were linear erosions in the distal esophagus as well as ulcerations consistent with LA grade C reflux esophagitis. Rest of the esophagus appeared normal. Patient tolerated the procedure well. At this time the patient continued to remain sedation. Initial digital rectal examination was normal. Olympus CF 160 video colonoscope was then inserted into the rectum and gradually advanced to the cecum without any difficulty. Careful examination was performed as the scope was gradually being withdrawn. The prep was excellent. The cecum, ascending colon, transverse colon, descending colon, sigmoid colon and rectum appeared normal. scattered sigmoid diverticulosis. Retroflexion was performed in the rectum and no lesions were noted. Patient tolerated the procedure well. Impression: 1. Upper endoscopy revealed linear erosions in the distal esophagus consistent with LA grade C reflux esophagitis, moderate size hiatal hernia and mild antral gastritis 2. Colonoscopy was with normal limits with no evidence of colorectal neoplasia. Recommendations: Findings of this examination were discussed with the patient as well as her family. She was advised to follow with the biopsy results. In the meantime she'll be started on omeprazole 20 mg twice daily and was briefly educated about antireflux measures. recommend repeat screening colonoscopy in 10 years.
[2021-09-10 08:30] VITALS: BP 128/85; PULSE 74
== END 2021-09-10 08:42 | disposition home or self-care (01) ==
LOC: ORWHC2ENDO 06:43
PROVIDERS: ATTEND Internal Medicine Gastroenterology
DX: D50.9 Iron deficiency anemia, unspecified (principal); K22.10 Ulcer of esophagus without bleeding; K29.50 Unspecified chronic gastritis without bleeding; K44.9 Diaphragmatic hernia without obstruction or gangrene; K31.9 Disease of stomach and duodenum, unspecified; K57.30 Diverticulosis of large intestine without perforation or abscess without bleeding; Z79.890 Hormone replacement therapy; Z79.82 Long term (current) use of aspirin; Z79.899 Other long term (current) drug therapy
CPT/HCPCS: 88305; 45378; 43239; J2704; J2001

== ENCOUNTER → 2021-11-19 | Outpatient (CLI) | payer OTHER ==
[2021-11-19 22:25] LABS: DHEA Sulfate 46.1 ug/dL (26.0-430.0)
[2021-11-20 00:46] LABS: ALT 11 U/L (8-44); AST 13 U/L (13-35); African American GFR (CKD) 97.6 (60.0-200.0); Albumin 3.8 g/dL (3.8-4.9); Albumin/Globulin Ratio 1.13 (1.60-3.17); Alkaline Phosphatase 89 U/L (41-126); BUN/Creat Ratio 10.63 Ratio (12.00-20.00); Blood Urea Nitrogen 8.2 mg/dL (9.0-27.0); Calcium 9.3 mg/dL (8.7-10.3); Carbon Dioxide 23.5 mmol/L (20.0-27.5); Chloride 108 mmol/L (96-109); Globulin 3.3 g/dL (1.6-3.3); Glucose 110 mg/dL (70-110); Non-African American GFR(CKD) 84.2 (60.0-200.0); Potassium 5.1 mmol/L (3.5-5.5); Sodium 141 mmol/L (135-145); Total Bilirubin <0.15 mg/dL (0.30-1.20); Total Protein 7.1 g/dL (6.2-8.2)
[2021-11-20 10:28] LABS: ACTH 7.42 pg/mL (0.00-45.99)
== END | disposition home or self-care (01) ==
LOC: LABWHC1 14:34
PROVIDERS: ATTEND Internal Medicine
DX: E27.9 Disorder of adrenal gland, unspecified (principal)
CPT/HCPCS: 36415; 80053; 82024; 82533; 82627; 83835

== ENCOUNTER → 2021-11-20 | Outpatient (CLI) | payer OTHER | END | disposition home or self-care (01) | LOC: LABWHC1 07:43 | PROVIDERS: ATTEND Internal Medicine | DX: E27.9 Disorder of adrenal gland, unspecified (principal) | CPT/HCPCS: 36415; 82024; 82533 ==

== ENCOUNTER → 2021-12-01 | Outpatient (CLI) | payer OTHER | END | disposition home or self-care (01) | LOC: LABWHC1 12:12 | PROVIDERS: ATTEND Internal Medicine | DX: E27.9 Disorder of adrenal gland, unspecified (principal) | CPT/HCPCS: 36415; 82024; 82533 ==

== ENCOUNTER → 2021-12-01 | Outpatient (CLI) | payer OTHER ==
[2021-12-01 18:08] LABS: Basophils # (A) 0.01 X 10*3/uL (0.00-0.10); Basophils % (A) 0.1 %; Eosinophils # (A) 0 X 10*3/uL (0.04-0.35); Eosinophils % (A) 0 %; HCT 32.3 % (37.2-46.3); HGB 9.4 g/dL (12.0-15.0); Immature Grans, Automated 0.3 %; Lymphocytes # (A) 2.11 X 10*3/uL (0.90-5.00); Lymphocytes % (A) 30.6 %; MCH 23.6 pg (27.0-32.0); MCHC 29.1 g/dL (32.0-37.0); MCV 81.2 fL (80.0-97.0); Mean Platelet Volume 11.5 fL (9.5-12.2); Monocytes # (A) 0.44 X 10*3/uL (0.20-1.00); Monocytes % (A) 6.4 %; NRBC Per 100 WBC 0 /100 WBCS (0.0-0.0); Neutrophils # (A) 4.31 X 10*3/uL (1.80-7.70); Neutrophils % (A) 62.6 %; Platelet Count 412 X 10*3/uL (140-440); RBC 3.98 X 10*6/uL (4.10-5.20); RDW 16.5 % (11.5-14.5); WBC 6.89 X 10*3/uL (4.50-10.00)
[2021-12-01 18:18] LABS: African American GFR (CKD) 117.1 (60.0-200.0); Anion Gap 8.7 mmol/L (10.00-18.00); BUN/Creat Ratio 9.81 Ratio (12.00-20.00); Blood Urea Nitrogen 5.6 mg/dL (9.0-27.0); Carbon Dioxide 24.2 mmol/L (20.0-27.5); Potassium 5.2 mmol/L (3.5-5.5)
[2021-12-01 19:01] LABS: INR 0.94 (0.90-1.11); Prothrombin Time 10.7 sec (9.9-11.9)
== END | disposition home or self-care (01) ==
LOC: LABPAT 12:08
PROVIDERS: ATTEND Orthopaedic Surgery
DX: Z01.812 Encounter for preprocedural laboratory examination (principal); M17.12 Unilateral primary osteoarthritis, left knee; Z22.322 Carrier or suspected carrier of Methicillin resistant Staphylococcus aureus
CPT/HCPCS: 80048; 85025; 85610; 87070

== ENCOUNTER → 2021-12-02 | Outpatient (CLI) | payer OTHER | END | disposition home or self-care (01) | LOC: LABWHC1 08:11 | PROVIDERS: ATTEND Internal Medicine | DX: E27.9 Disorder of adrenal gland, unspecified (principal) | CPT/HCPCS: 36415; 82024; 82533 ==

== ENCOUNTER → 2021-12-24 | Outpatient (CLI) | payer OTHER ==
[2021-12-24 18:20] LABS: Basophils # (A) 0 X 10*3/uL (0.00-0.10); Basophils % (A) 0 %; Eosinophils # (A) 0 X 10*3/uL (0.04-0.35); Eosinophils % (A) 0 %; HCT 29.4 % (37.2-46.3); HGB 8.5 g/dL (12.0-15.0); Immature Grans, Automated 0 %; Lymphocytes % (A) 29.3 %; MCH 23.3 pg (27.0-32.0); MCHC 28.9 g/dL (32.0-37.0); MCV 80.5 fL (80.0-97.0); Mean Platelet Volume 11.4 fL (9.5-12.2); Monocytes # (A) 0.42 X 10*3/uL (0.20-1.00); Monocytes % (A) 15.4 %; NRBC Per 100 WBC 0 /100 WBCS (0.0-0.0); Neutrophils # (A) 1.51 X 10*3/uL (1.80-7.70); Neutrophils % (A) 55.3 %; Platelet Count 295 X 10*3/uL (140-440); RBC 3.65 X 10*6/uL (4.10-5.20); RDW 16.8 % (11.5-14.5); WBC 2.73 X 10*3/uL (4.50-10.00)
[2021-12-24 18:26] LABS: African American GFR (CKD) 110.8 (60.0-200.0); Anion Gap 11.2 mmol/L (10.00-18.00); BUN/Creat Ratio 9.91 Ratio (12.00-20.00); Blood Urea Nitrogen 6.6 mg/dL (9.0-27.0); Calcium 8.4 mg/dL (8.7-10.3); Non-African American GFR(CKD) 95.6 (60.0-200.0); Potassium 3.8 mmol/L (3.5-5.5)
[2021-12-24 18:27] LABS: INR 0.99 (0.90-1.11); Prothrombin Time 10.9 sec (9.9-11.9)
== END | disposition home or self-care (01) ==
LOC: LABPAT 10:57
PROVIDERS: ATTEND Orthopaedic Surgery
DX: Z01.812 Encounter for preprocedural laboratory examination (principal); M17.12 Unilateral primary osteoarthritis, left knee
CPT/HCPCS: 80048; 85025; 85610

== ENCOUNTER → 2022-01-28 | Outpatient (CLI) | payer OTHER ==
[2022-01-28 16:43] LABS: ALT 10 U/L (8-44); AST 9 U/L (13-35); African American GFR (CKD) 118.2 (60.0-200.0); Albumin 3.9 g/dL (3.8-4.9); Albumin/Globulin Ratio 1.17 (1.60-3.17); Alkaline Phosphatase 87 U/L (41-126); BUN/Creat Ratio 21.64 Ratio (12.00-20.00); Blood Urea Nitrogen 11.9 mg/dL (9.0-27.0); Calcium 9.3 mg/dL (8.7-10.3); Chloride 106 mmol/L (96-109); Chol/HDL Ratio 4.09 Ratio; Globulin 3.3 g/dL (1.6-3.3); Glucose 118 mg/dL (70-110); LDL Cholesterol,Calculated 90.8 mg/dL (0.0-131.0); Potassium 5.3 mmol/L (3.5-5.5); Sodium 141 mmol/L (135-145); Total Protein 7.2 g/dL (6.2-8.2)
== END | disposition home or self-care (01) ==
LOC: LABWHC1 10:20
PROVIDERS: ATTEND Internal Medicine Interventional Cardiology
DX: E78.2 Mixed hyperlipidemia (principal)
CPT/HCPCS: 36415; 80053; 80061

== ENCOUNTER → 2022-02-05 | Day surgery (SDC) | payer OTHER ==
[~2022-02-05] MED LIST changes: -LACTATED RINGERS 1,000 ML IV SCH; -LIDOCAINE 1% (10MG/ML) FOR IV START INTRADERMA PRN; +SIMETHICONE 40 MG/0.6 ML DROPS 2,000 MG/30 ML BOTTLE PO ONE
[2022-02-05 06:21] VITALS: BP 147/65; PULSE 90; RESP 16; TEMP 97.8
== END ==
LOC: ORWHC2ENDO 05:53
PROVIDERS: ATTEND Internal Medicine Gastroenterology
DX: D50.9 Iron deficiency anemia, unspecified (principal)
CPT/HCPCS: 91110

== ENCOUNTER → 2022-07-06 | Outpatient (CLI) | payer OTHER | END | disposition home or self-care (01) | LOC: LABPAT 12:29 | PROVIDERS: ATTEND Orthopaedic Surgery | DX: Z01.812 Encounter for preprocedural laboratory examination (principal); M17.12 Unilateral primary osteoarthritis, left knee; Z22.322 Carrier or suspected carrier of Methicillin resistant Staphylococcus aureus | CPT/HCPCS: 87070 ==

== ENCOUNTER 2022-07-20 05:33 | Inpatient (IN) | payer OTHER ==
[2022-07-14 14:03] VITALS: BMI 36.3
--- NOTE | 2022-07-19 20:29 | HP ---
HISTORY AND PHYSICAL Surgery is scheduled for 07/20/2022. HISTORY OF PRESENT ILLNESS: Zulma Martinez is a 61-year-old patient seen with symptomatic left knee osteoarthritis. After treatment options were discussed with her, she elected to proceed with left total knee arthroplasty. Consent regarding the procedure was obtained. Medical clearance was provided by Dr. Wheat. PAST MEDICAL HISTORY: Hypothyroidism, hypertension. PAST SURGICAL HISTORY: Right total knee arthroplasty, cholecystectomy. DAILY MEDICATIONS: 1. Aspirin. 2. Atorvastatin. 3. Carvedilol. 4. Levothyroxine. 5. Losartan. 6. Omeprazole. ALLERGIES: None. SOCIAL HISTORY: She denies current tobacco use. PHYSICAL EVALUATION OF THE LEFT KNEE: Range of motion is -5/6 to 120 degrees. There is a mild effusion present. Tenderness along the medial and lateral joint lines. Crepitus along the medial patellofemoral compartments with range of motion. There is pain with patellofemoral compression. Her ligaments are stable. Her distal neurovascular exam is intact. RADIOGRAPHS: Radiographs of the left knee reveal severe osteoarthritic changes. IMPRESSION: 1. Left knee osteoarthritis. 2. Hypertension. 3. Hyperlipidemia. 4. Hypothyroidism. PLAN: Left total knee arthroplasty. MMODL / IJN: [id number] /
[~2022-07-20 05:33] MED LIST changes: +ACETAMINOPHEN TAB 500 MG TAB PO PRN; +MELOXICAM 7.5 MG TAB PO PRN; -SIMETHICONE 40 MG/0.6 ML DROPS 2,000 MG/30 ML BOTTLE PO ONE; +TRANEXAMIC ACID IN NACL,ISO-OS 1,000 MG in SALINE 1 100ML.BAG IVPB PRN
[2022-07-20] MEDS ORDERED: ONDANSETRON 4 MG/2 ML VIAL ONE (06:24)
[2022-07-20] MEDS ORDERED: LACTATED RINGERS 1,000 ML IV ONE ×4 (06:30→13:05)
[2022-07-20] MEDS ORDERED: MIDAZOLAM 2 MG/2 ML VIAL IVP ONE (06:49)
[2022-07-20] MEDS ORDERED: ONDANSETRON 4 MG/2 ML VIAL IVP ONE ×2 (07:15→07:36)
[2022-07-20] MEDS ORDERED: DEXAMETHASONE SOD PHOSPHATE 4 MG/ML 1 ML VIAL IVP ONE (07:15)
[2022-07-20] MEDS ORDERED: LIDOCAINE 2% INJ 20 MG/ML (2 ML VIAL) ONE (07:27)
[2022-07-20] MEDS ORDERED: PROPOFOL 10 MG/ML 20 ML VIAL IV ONE (07:27)
[2022-07-20] MEDS ORDERED: ROPIVACAINE 5 MG/ML 30 ML VIAL ONE (07:27)
[2022-07-20] MEDS ORDERED: NEOSTIGMINE 1 MG/ML 10 ML VIAL ONE (07:27)
[2022-07-20] MEDS ORDERED: GLYCOPYRROLATE 0.2 MG/ML 2 ML VIAL ONE (07:27)
[2022-07-20] MEDS ORDERED: SODIUM CHLORIDE 0.9% (PF) 10 ML VIAL ONE (07:27)
[2022-07-20] MEDS ORDERED: HYDROmorphone (PF) 1 MG/ML ONE (07:27)
[2022-07-20] MEDS ORDERED: ROCURONIUM 10 MG/ML (5 ML VIAL) IV ONE (07:27)
[2022-07-20] MEDS ORDERED: TRANEXAMIC ACID IN NACL,ISO-OS 1,000 MG/100 ML BAG ONE (07:27)
[2022-07-20] MEDS ORDERED: fentaNYL (PF) 50 MCG/ML 2 ML AMP ONE (07:27)
[2022-07-20] MEDS ORDERED: SUCCINYLCHOLINE CHLORIDE 200 MG/10 ML VIAL IV ONE (07:27)
[2022-07-20] MEDS ORDERED: HYDROmorphone 0.5 MG/0.5 ML SYRINGE IVP PRN ×2 (07:36→09:21)
[2022-07-20] MEDS ORDERED: DEXAMETHASONE SOD PHOSPHATE 4 MG/ML 1 ML VIAL IV ONE (07:36)
--- NOTE | 2022-07-20 07:51 | P.ANPRN ---
Procedure Note - Anesthesia - Nerve Block Performed Left Adductor Canal Infusion Date of Procedure: 07/20/22 Procedure Start Time: 06:48 Procedure Stop Time: 06:59 Indication: Acute Post-Operative Pain, Requested by Surgeon Sedation Type: Sedate with meaningful contact maintained Preparation: Sterile Prep Position: Supine Catheter: Indwelling Needle Types: Pajunk Needle Gauge: 18 Ultrasound used to visualize needle placement: Yes Ultrasound used to observe medication spread: Yes Injectate: 0.5% Ropivacaine (see comment for volume) (20 mls) Blood Aspirated: No Pain Paresthesia on Injection Noted: No Resistance on Injection: Normal Image Stored and Saved: Yes Events: Uneventful and Well Tolerated
[2022-07-20] MEDS ORDERED: ROPIVACAINE 1,100 MG, SODIUM CHLORIDE 0.9% 500 ML 330 ML, EMPTY PAIN BALL 1 EACH MISCELLANE PRN ×2 (07:52)
--- NOTE | 2022-07-20 07:52 | P.ANPRN ---
Procedure Note - Anesthesia - Nerve Block Performed Left Rema Single Date of Procedure: 07/20/22 Procedure Start Time: 07:00 Procedure Stop Time: 07:06 Indication: Acute Post-Operative Pain, Requested by Surgeon Sedation Type: Sedate with meaningful contact maintained Preparation: Sterile Prep Position: Supine Catheter: None Needle Types: Facet Needle Gauge: 21 Ultrasound used to visualize needle placement: Yes Ultrasound used to observe medication spread: Yes Injectate: 0.5% Ropivacaine (see comment for volume) (10 mls+ 10 mls of NS) Blood Aspirated: No Pain Paresthesia on Injection Noted: No Resistance on Injection: Normal Image Stored and Saved: Yes Events: Uneventful and Well Tolerated
[2022-07-20] MEDS ORDERED: ceFAZolin 1,000 MG in SODIUM CHLORIDE 0.9% 1,000 ML IRRIGATION ONE (08:00)
[2022-07-20] MEDS ORDERED: traMADol 50 MG TAB PO PRN (09:21)
[2022-07-20] MEDS ORDERED: Acetaminophen-Codeine 300-30mg TAB PO PRN ×2 (09:21)
[2022-07-20] MEDS ORDERED: NALOXONE 0.4 MG/ML 1 ML VIAL IV PRN (09:21)
[2022-07-20] MEDS ORDERED: HYDROmorphone 1 MG/ML 1 ML SYRINGE IVP PRN (09:21)
[2022-07-20] MEDS ORDERED: ONDANSETRON 4 MG/2 ML VIAL IVP PRN (09:21)
--- NOTE | 2022-07-20 09:21 | P.OP ---
Date of Procedure: 07/20/22 Preoperative Diagnosis: Left knee osteoarthritis Postoperative Diagnosis: Left knee osteoarthritis Procedure(s) Performed: Left total knee arthroplasty Implants: 1. Depuy attune size 6 narrow left cruciate retaining cemented femur 2. Depuy attune size 6 fixed bearing cemented tibial baseplate 3. Depuy attune size 6 fixed bearing cruciate retaining 7 mm polyethylene tibial insert 4. Depuy attune 32 mm all polyethylene cemented patella Anesthesia: GETA, regional (Adductor canal catheter, Ipack block) Surgeon: Jignesh Urban [employer] Driver #1: Lam Mota Estimated Blood Loss (ml): 50 Pathology: other (Bone) Condition: stable Disposition: PACU Indications for Procedure: 61-year-old patient seen with symptomatic left knee osteoarthritis. After having treatment options discussed, she elected to proceed with left total knee arthroplasty. Operative Findings: See description of procedure Description of Procedure: Patient was taken to the operative suite after having an adductor canal catheter placed by the department of anesthesia. Patient underwent a general anesthetic by the department of anesthesia. Patient was given preoperative IV intake antibiotics and TXA. A well-padded tourniquet was placed about the left lower extremity. The lower extremity was then prepped and draped in the normal sterile orthopedic fashion. The extremity was elevated, a tourniquet was insufflated to 300. A standard anterior incision was made sharply through skin. Dissection was taken down through the subcutaneous soft tissues down to the extensor mechanism. A medial arthrotomy was performed, patella was everted and knee was flexed. There was advanced osteoarthritis noted. I introduced my distal intramedullary femoral drill. I then introduced the distal femoral cutting jig. Emre DUTTON secured the cutting jig with 2 pins. I held retractors in position while Emre DUTTON performed the distal femoral resection through the guide area we now removed her distal femoral cutting guide. We now placed our 4-in-1 femoral cutting block and positioned and it was secured with 2 pins by Emre DUTTON while I held the block in position. The distal femoral finishing was now completed. A proximal tibial cutting guide was positioned. I held the guide in the appropriate position with both hands well Emre DUTTON inserted stabilizing pins into the guide. Proximal tibial cut was made. We now placed a trial femoral component into position, along with an appropriate size tibial tray and insert. We now took the knee through range of motion and had full extension good flexion and good overall soft tissue balance noted. The patella was everted and stabilized with 2 towel clips held by Emre DUTTON while I performed a flush with patellar quad tendon utilizing a fresh sawblade. We templated the patella, appropriate drill holes were made. An appropriate trial patella was positioned, knee was taken through full range of motion with the patella tracking very nicely. The trial patella was removed. Drill holes were made through the femoral component. All trial components were removed after marking off the appropriate rotation of the tibia. Retractors were now positioned along the proximal tibia. An appropriate keel punch was made with the appropriate size tibial guide by myself on Emre DUTTON assisted by holding retractors. At this point appropriate size implants were chosen and opened. The joint was irrigated copiously with pulse lavage mechanical irrigation. The wound was irrigated with pulse lavage mechanical irrigation. We mixed antibiotic methylmethacrylate. We placed the knee into flexion. We placed multiple retractors assisted by Emre DUTTON to expose the proximal tibia. Once the methyl methacrylate was ready, the tibial component was cemented into place removing any excess methylmethacrylate form by both myself and Emre DUTTON. The femoral component was cemented into place removing the removing any excess methylmethacrylate performed by both myself and Emre DUTTON. We then inserted the appropriate size polyethylene tibial insert. We made sure that it was locked into position. We took the knee into full extension, and then back in a flexion making sure we had removed any excess methylmethacrylate. The patellar component was then cemented down and secured with clamp. Excess methylmethacrylate removed. We kept the knee in full extension, patellar clamp in position until methylmethacrylate had hardened. Once it had hardened the patellar clamp was removed. The knee was taken through full range of motion. The patella tracked nicely. There was good soft tissue balancing. The tourniquet was now released. Additional hemostasis was achieved via electrocautery. A second gram of TXA was given. The wound again was irrigated with pulse lavage mechanical irrigation. The extensor mechanism was repaired with Ethibond suture. We checked the repair with range of motion and it was stable. The subcutaneous soft tissues were repaired with Vicryl in layers. The skin was approximated with pernio/Dermabond. Sterile dressings were applied followed by loose web roll and Lionel bandage. The patient was transferred to a bed, and taken to recovery in stable and satisfactory condition. Emre DUTTON assisted with this complex procedure.
--- NOTE | 2022-07-20 10:35 | XR ---
EXAMINATION TYPE: XR knee limited LT DATE OF EXAM: 07/20/2022 COMPARISON: NONE TECHNIQUE: Two views submitted HISTORY: Post op FINDINGS: There is a prosthetic knee in near anatomic alignment. There is soft tissue edema and emphysema. IMPRESSION: 1. Postoperative change. Appears in near-anatomic alignment
[2022-07-20] MEDS: LACTATED RINGERS 1,000 ML IV SCH ×3 (11:11→14:03)
[2022-07-20] MEDS ORDERED: Acetaminophen-Codeine 300-30mg TAB PO ONE (12:22)
[2022-07-20] MEDS: HYDROmorphone 0.5 MG/0.5 ML SYRINGE IVP PRN (14:05)
[2022-07-20 18:00] LABS: Allen Test Performed? Yes
[2022-07-20 18:01] LABS: ABG PCO2 44 mmHg (35-45); ABG PH 7.38 (7.35-7.45)
[2022-07-20 18:02] LABS: ABG Base Excess 0.5 mmol/L; ABG HCO3 25 mmol/L (21-25); ABG PO2 54 mmHg (83-108)
--- NOTE | 2022-07-20 18:02 | XR ---
EXAMINATION TYPE: XR chest 1V portable DATE OF EXAM: 07/20/2022 5:53 PM COMPARISON: Chest radiographs from 12/11/2017. TECHNIQUE: XR chest 1V portable Frontal view of the chest. CLINICAL INDICATION:Female, 61 years old with history of low oxygen saturations, SOB; FINDINGS: Lungs/Pleura: There is no evidence of pleural effusion, focal consolidation, or pneumothorax. Pulmonary vascularity: Unremarkable. Heart/mediastinum: Cardiomediastinal silhouette is unremarkable. Musculoskeletal: No acute osseous pathology. IMPRESSION: No acute cardiopulmonary disease/process.
[2022-07-20 19:16] LABS: Glucose,Whole Blood 130 mg/dL (70-110)
--- NOTE | 2022-07-20 20:05 | CT ---
EXAMINATION TYPE: CT angio chest CT DLP: 512.8 mGycm, Automated exposure control for dose reduction was used. DATE OF EXAM: 07/20/2022 7:05 PM COMPARISON: 09/23/2010 CLINICAL INDICATION:Female, 61 years old with history of rule out PE; SOB after knee sx TECHNIQUE/CONTRAST: CTA scan of the thorax is performed with IV Contrast, patient injected with 75ml mL of Isovue 370, pu lmonary embolism protocol. MIP images are created and reviewed these are created on a separate works tation.. FINDINGS: Pulmonary Artery: There is no evidence for a filling defect within the pulmonary vasculature to sugge st acute pulmonary embolism. The pulmonary artery is of normal size. Lungs/Pleura: No evidence of focal consolidation, pleural effusion or pneumothorax. Dependent atelect asis noted bilaterally with wedge shape and bronchovascular crowding.. Motion limits evaluation of th e parenchyma. Airway: Large airways are patent. Heart: Mildly enlarged for size. Coronary artery calcifications are present. Vasculature: No evidence of aortic aneurysm. Mediastinum: No gross evidence of adenopathy. Musculoskeletal: No acute osseous abnormalities Soft Tissues: Unremarkable. Lower neck: No significant findings. Upper Abdomen: Nodularity to the bilateral adrenal glands measuring up to 15 mm on the right and 19 m m on the left. Gallbladder surgically absent. There is large hiatal hernia with layering debris withi n the esophagus throughout the mediastinum. IMPRESSION: 1. No evidence of pulmonary embolism. 2. Bibasilar wedge-shaped dependent atelectasis changes. Correlate for superimposed infection. 3. Bilateral suspected adrenal lipid rich adenomas. 4. Large hiatal hernia with layering debris within the esophagus. Correlate for achalasia, esophagea l dysmotility and/or reflux.
[2022-07-20 20:10] LABS: Basophils % (A) 0 %; Eosinophils # (A) 0.1 k/uL (0-0.7); Eosinophils % (A) 1 %; HGB 13.2 gm/dL (11.4-16.0); Lymphocytes # (A) 0.7 k/uL (1.0-4.8); Lymphocytes % (A) 5 %; MCH 29.9 pg (25.0-35.0); MCHC 32.1 g/dL (31.0-37.0); Monocytes # (A) 0.5 k/uL (0-1.0); Monocytes % (A) 3 %; Neutrophils # (A) 13.7 k/uL (1.3-7.7); Neutrophils % (A) 91 %; Platelet Count 283 k/uL (150-450); RDW 12.4 % (11.5-15.5); WBC 15.1 k/uL (3.8-10.6)
[2022-07-20 20:20] LABS: African American GFR (CKD) >90 (>60 ml/min/1.73 sqM); Anion Gap 8 mmol/L; Blood Urea Nitrogen 8 mg/dL (7-17); Calcium 8.8 mg/dL (8.4-10.2); Carbon Dioxide 28 mmol/L (22-30); Chloride 100 mmol/L (98-107); Glucose 127 mg/dL (74-99); Non-African American GFR(CKD) >90 (>60 ml/min/1.73 sqM); Potassium 5.4 mmol/L (3.5-5.1); Sodium 136 mmol/L (137-145)
[2022-07-20] MEDS ORDERED: IPRATROPIUM-ALBUTEROL 3 ML NEB INHALATION PRN (23:11)
[2022-07-20] MEDS: methylPREDNISolone SOD SUCCI 40 MG/ML 1 ML VIAL IV SCH (23:37)
--- NOTE | 2022-07-21 02:11 | P.CNPUL ---
History of Present Illness Consult date: 07/21/22 Requesting physician: Jignesh Urban Reason for consult: other (ICU management) Chief complaint: Respiratory distress following general anesthesia History of present illness: I'm seeing this patient in new consultation today 07/21/2022 in the intensive care unit following an acute episode of respiratory distress after an elective left total knee arthroplasty. Patient is a 61-year-old white female with past medical history significant for left knee osteoarthritis brought in today for an elective left total knee arthroplasty. She also has pertinent medical history of COPD with a reported FEV1 68% of predicted, ex-smoker of 50 pack-years, coronary artery disease with previous CA and stenting, hyperlipidemia, hypertension, GERD with Hancock's esophagus, hypothyroidism, hiatal hernia. Patient does follow Dr. Ca in the office for her moderate COPD. She normally takes a combination of Incruse and Combivent inhalers. Patient reportedly had an uneventful left total knee arthroplasty today, extubated in recovery, and initially sent to [facility]. While on the floor, the patient developed some severe respiratory distress. She was placed on 15 L high flow cannula. Chest x-ray showed no acute cardiopulmonary disease or process. 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 An ABG at that time showed a pO2 of 54, pCO2 44, pH of 7.3. Patient was transferred to the intensive care unit. She is currently sitting up in bed, on 3 L nasal cannula, in no acute distress. She is actually oxygenating at 98%. No stridor appreciated. She is minimally bronchospastic. Patient denies any previous reactions to general anesthesia. No reported episodes of emesis or concerns for aspiration. Currently has ropivacaine nerve block infusing at 7 mg per hour. Most recent CBC from last night shows a WBC count of 15, hemoglobin 13.2, hematocrit 41, platelets 283,000. BMP from last night shows a sodium 136, potassium 5.4, chloride 100, serum CO2 28, BUN 8, creatinine 0.51, glucose 127. NT proBNP was low at 184. Patient's respiratory status has improved, and she will be monitored in the intensive care unit overnight. Review of Systems REVIEW OF SYSTEMS: CONSTITUTIONAL: Denies any recent significant weight loss or weight gain. EYES: Denies change in vision. EARS, NOSE, MOUTH, THROAT: Denies headaches, denies sore throat. CARDIOVASCULAR: Denies chest pain, palpitations or syncopal episodes. RESPIRATORY: Denies shortness of breath, cough, congestion or hemoptysis. GASTROINTESTINAL: Denies change in appetite, abdominal pain, nausea and vomiting, or diarrhea GENITOURINARY: Denies hematuria, denies infections. MUSKULOSKELETAL: Denies pain, denies swelling. INTEGUMENTARY: Denies rash, denies eczema. NEUROLOGICAL: Denies recent memory loss, no recent seizure activity. PSYCHIATRIC: Denies anxiety, denies depression. HEMATOLOGIC/LYMPHATIC: Denies anemia, denies enlarged lymph node Past Medical History Past Medical History: COPD, GERD/Reflux, Hyperlipidemia, Hypertension, Myocardial Infarction (CA), Osteoarthritis (OA), Thyroid Disorder Additional Past Medical History / Comment(s): PT WAS ON ANTIBIOTICS FOR EAR DRUM ISSUE IN JUNE 2022. PT HAS PERIODS OF VERTIGO Last Myocardial Infarction Date:: 08/10/13 History of Any Multi-Drug Resistant Organisms: None Reported Past Surgical History: Cholecystectomy, Heart Catheterization With Stent, Joint Replacement Additional Past Surgical History / Comment(s): RT TKA, COLONOSCOPY Past Anesthesia/Blood Transfusion Reactions: No Reported Reaction Date of Last Stent Placement:: 08/10/13 Smoking Status: Former smoker - Past Family History Mother Family Medical History: Coronary Artery Disease (CAD), Hypertension, Myocardial Infarction (CA) Father Family Medical History: Cancer Medications and Allergies Home Medications Medication Instructions Recorded Confirmed Type Ipratropium/Albuterol Sulfate 1 puff INHALATION RT-QID PRN 06/24/17 07/20/22 History [Combivent Respimat Inhaler] Umeclidinium [place] [Incruse 1 puff INHALATION RT-DAILY 06/24/17 07/20/22 Hist ory Ellipta] Atorvastatin [Lipitor] 40 mg PO HS 10/22/18 07/20/22 History Levothyroxine Sodium [Synthroid] 175 mcg PO DAILY 10/22/18 07/20/22 History Aspirin [Adult Low Dose Aspirin EC] 81 mg PO BID #60 tablet. 01/30/20 07/20/22 Rx Desvenlafaxine [Pristiq ER] 100 mg PO DAILY 04/02/21 07/20/22 History Omeprazole [PriLOSEC] 20 mg PO AC-BID 04/02/21 07/20/22 History Ferrous Sulfate [Iron] 325 mg PO DAILY 02/03/22 07/20/22 History Meclizine [Antivert] 25 mg PO DAILY PRN 02/03/22 07/20/22 History Valsartan 40 mg PO HS 02/03/22 07/20/22 History carvediloL [Coreg] 6.25 mg PO BID-W/MEALS 02/03/22 07/20/22 History Allergies Allergy/AdvReac Type Severity Reaction Status Date / Time hydrocodone bitartrate AdvReac VERY Verified 07/20/22 06:18 [From Vicodin] RESTLESS, ANXIETY Physical Exam Osteopathic Statement: *. No significant issues noted on an osteopathic structural exam other than those noted in the History and Physical/Consult. Vitals: Vital Signs Temp Pulse Pulse Pulse Pulse Resp BP 07/21/22 01:00 96 20 145/75 07/21/22 00:08 98 25 H 07/21/22 00:00 98.3 F 93 14 140/70 07/20/22 23:00 91 16 136/88 07/20/22 22:00 82 25 H 146/89 07/20/22 21:00 84 23 161/74 07/20/22 20:00 97.8 F 76 16 164/83 07/20/22 19:13 07/20/22 17:45 76 18 07/20/22 14:21 97.5 F L 69 16 07/20/22 13:26 69 16 07/20/22 13:11 69 16 07/20/22 12:56 70 16 07/20/22 12:41 71 16 07/20/22 12:26 70 16 07/20/22 12:11 91 16 07/20/22 11:56 73 16 07/20/22 11:41 71 16 07/20/22 11:27 07/20/22 11:26 73 14 07/20/22 11:20 67 16 07/20/22 11:05 68 16 07/20/22 10:50 64 16 07/20/22 10:25 64 16 07/20/22 10:10 73 16 07/20/22 09:55 64 16 07/20/22 09:40 96.8 F L 69 16 07/20/22 07:07 73 16 07/20/22 06:15 97.8 F 62 16 BP BP Pulse Ox 07/21/22 01:00 99 07/21/22 00:08 97 07/21/22 00:00 97 07/20/22 23:00 95 07/20/22 22:00 97 07/20/22 21:00 98 07/20/22 20:00 95 07/20/22 19:13 95 07/20/22 17:45 157/86 90 L 07/20/22 14:21 173/85 95 07/20/22 13:26 151/77 98 07/20/22 13:11 153/80 98 07/20/22 12:56 169/71 98 07/20/22 12:41 152/80 97 07/20/22 12:26 166/93 98 07/20/22 12:11 161/77 99 07/20/22 11:56 166/82 98 07/20/22 11:41 167/82 98 07/20/22 11:27 98 07/20/22 11:26 167/71 88 L 07/20/22 11:20 164/88 97 07/20/22 11:05 148/78 96 07/20/22 10:50 149/65 96 07/20/22 10:25 168/77 97 07/20/22 10:10 152/72 92 L 07/20/22 09:55 131/60 92 L 07/20/22 09:40 140/60 94 L 07/20/22 07:07 107/52 99 07/20/22 06:15 125/63 98 Intake and Output 07/20/22 07/20/22 07/21/22 14:59 22:59 06:59 Intake Total 2751 60 60 Output Total 50 1425 270 Balance 8264 -7831 -210 Intake: IV 2751 60 60 Lactated Ringers 1,000 ml 60 60 @ 20 mls/hr IV .Q24H [facility] Rx#:[id number] Output: Urine 1425 270 Estimated Blood Loss 50 Other: Voiding Method Indwelling Catheter Indwelling Catheter # Voids 0 # Bowel Movements 0 Weight 97.4 kg GENERAL EXAM: Alert, 61-year-old white female , comfortable in no apparent distress. HEAD: Normocephalic and atraumatic EYES: Normal reaction of pupils, equal size. NOSE: Clear with pink turbinates. THROAT: No erythema or exudates. NECK: No masses, no JVD. CHEST: No chest wall deformity. LUNGS: Equal air entry with faint end expiratory wheezes throughout. no crackles, rhonchi or dullness. No stridor. On 3 L nasal cannula. No conversational dyspnea or accessory muscle use.. CVS: S1 and S2 normal with no audible murmur, regular rhythm. No extra heart sounds ABDOMEN: Obese abdomen. No hepatosplenomegaly, active bowel sounds, no guarding or rigidity. SPINE: No scoliosis or deformity SKIN: No rashes CENTRAL NERVOUS SYSTEM: No focal deficits, tone is normal in all 4 extremities. EXTREMITIES: There is mild nonpitting edema of the bilateral lower extremities. Postsurgical left knee with dressing clean, dry, intact. No clubbing, or cyanosis. Peripheral pulses are intact. Results - Laboratory Findings CBC and BMP: 07/20/22 19:53 07/21/22 05:00 ABG ABG pH 7.38 (7.35-7.45) 07/20/22 17:53 ABG pCO2 44 mmHg (35-45) 07/20/22 17:53 ABG pO2 54 mmHg (83-108) L* 07/20/22 17:53 ABG O2 Saturation 87.0 % (94-97) L 07/20/22 17:53 Abnormal lab findings: Abnormal Labs 07/20/22 07/20/22 07/20/22 17:53 19:14 19:53 WBC 15.1 H Neutrophils # 13.7 H Lymphocytes # 0.7 L ABG pO2 54 L* ABG O2 Saturation 87.0 L Sodium Potassium Creatinine Glucose POC Glucose (mg/dL) 130 H 07/20/22 19:53 WBC Neutrophils # Lymphocytes # ABG pO2 ABG O2 Saturation Sodium 136 L Potassium 5.4 H Creatinine 0.51 L Glucose 127 H POC Glucose (mg/dL) - Diagnostic Findings Chest x-ray: image reviewed CT scan - chest: image reviewed Assessment and Plan Assessment: Elective left total knee arthroplasty Acute hypoxic respiratory failure following extubation, improved currently on 3 L nasal cannula. No obvious evidence of stridor, aspiration, or fluid overload. Chronic obstructive pulmonary disease, minimally active Coronary artery disease with previous CA and stent placement in 2014 Hyperlipidemia Hypertension Large hiatal hernia GERD with Hancock's esophagus Hypothyroidism Ex-smoker, with [id number] history Plan: Patient's medications, labs, chest x-ray, chest CTA were reviewed Patient's respiratory status is improved, and is currently on 3 L nasal cannula Titrate FiO2 accordingly Add bronchodilators, formoterol, budesonide, IV SoluMedrol Encourage incentive spirometer Follow-up chest x-ray in the morning DVT prophylaxis per surgery Ropivacaine nerve block infusing Patient will be monitored in the intensive care unit overnight I have personally seen and examined the patient, performed the documentation and the assessment and plan as written. Number of minutes spent on the visit:20 Time with Patient: Greater than 30
[2022-07-21 03:53] LABS: Glucose,Whole Blood 179 mg/dL (70-110)
--- NOTE | 2022-07-21 06:00 | P.PN ---
Progress Note - Text Progress Note Date: 07/21/22 The patient is postoperative day #1 status post total knee replacement under ge neral anesthesia. The patient suffered an acute hypoxemia on the floor and she had to be transferred to the ICU. There was no need for intubation and the patient now is able to keep her O2 saturation above 90% on room air. Computed tomography scan of the chest did not show any PE however it did show some atelectasis. Of note the patient has a history of moderate COPD and she is an ex smoker. Pain is managed by a combination of local anesthetic infusion through the adductor canal catheter and oral analgesics. There are no signs of infection around the catheter skin entry site. The local anesthetic infusion will be continued as per protocol.
[2022-07-21] MEDS: HYDROmorphone 0.5 MG/0.5 ML SYRINGE IVP PRN ×3 (06:36→13:42)
[2022-07-21 06:38] LABS: African American GFR (CKD) >90 (>60 ml/min/1.73 sqM); Anion Gap 8 mmol/L; Blood Urea Nitrogen 21 mg/dL (7-17); Calcium 8.6 mg/dL (8.4-10.2); Carbon Dioxide 24 mmol/L (22-30); Chloride 103 mmol/L (98-107); Glucose 157 mg/dL (74-99); Non-African American GFR(CKD) >90 (>60 ml/min/1.73 sqM); Potassium 4.5 mmol/L (3.5-5.1); Sodium 135 mmol/L (137-145)
[2022-07-21 06:57] LABS: Basophils % (A) 0 %; Eosinophils % (A) 0 %; HCT 37.8 % (34.0-46.0); HGB 12.4 gm/dL (11.4-16.0); Lymphocytes # (A) 0.7 k/uL (1.0-4.8); Lymphocytes % (A) 6 %; MCH 30.4 pg (25.0-35.0); MCHC 32.7 g/dL (31.0-37.0); MCV 92.9 fL (80.0-100.0); Mean Platelet Volume 9.3; Monocytes # (A) 0.4 k/uL (0-1.0); Monocytes % (A) 3 %; Neutrophils # (A) 11.8 k/uL (1.3-7.7); Neutrophils % (A) 91 %; Platelet Count 314 k/uL (150-450); RBC 4.07 m/uL (3.80-5.40); RDW 12.8 % (11.5-15.5); WBC 13.1 k/uL (3.8-10.6)
[2022-07-21] MEDS: IPRATROPIUM-ALBUTEROL 3 ML NEB INHALATION SCH ×3 (07:57→15:44)
[2022-07-21] MEDS ORDERED: FORMOTEROL FUMARATE 20 MCG/2 ML NEBU INHALATION SCH (08:00)
[2022-07-21] MEDS ORDERED: BUDESONIDE 1 MG/2 ML NEBU INHALATION SCH (08:00)
--- NOTE | 2022-07-21 08:22 | XR ---
EXAMINATION TYPE: XR chest 1V portable DATE OF EXAM: 07/21/2022 COMPARISON: 07/20/2022 HISTORY: Shortness of breath TECHNIQUE: Single frontal view of the chest is obtained. FINDINGS: A perihilar linear changes are seen. No pleural effusion or pneumothorax. No focal pneumon ia. Heart size normal. Hypertrophic and degenerative changes of the spine. IMPRESSION: Bilateral perihilar subsegmental consolidation atelectasis favored over pneumonia correl ate clinically.
[2022-07-21] MEDS: methylPREDNISolone SOD SUCCI 40 MG/ML 1 ML VIAL IV SCH ×2 (08:46→15:44)
[2022-07-21] MEDS ORDERED: DEXTROSE 50% SYRINGE 50 ML IVP PRN ×2 (08:49)
[2022-07-21] MEDS ORDERED: MECLIZINE 25 MG TAB PO PRN (08:51)
[2022-07-21] MEDS ORDERED: PANTOPRAZOLE 40 MG/10 ML VIAL IV SCH (09:00)
[2022-07-21] MEDS ORDERED: FERROUS SULFATE 325 MG TAB PO SCH (09:00)
[2022-07-21] MEDS ORDERED: LEVOTHYROXINE 88 MCG TAB PO SCH (09:00)
[2022-07-21] MEDS ORDERED: carvediloL 6.25 MG TAB PO SCH (09:00)
[2022-07-21] MEDS ORDERED: DESVENLAFAXINE SUCCINATE 50 MG TAB.ER.24H PO SCH (09:00)
[2022-07-21] MEDS: LACTATED RINGERS 1,000 ML IV SCH (10:34)
--- NOTE | 2022-07-21 10:50 | P.PN ---
Subjective Progress Note Date: 07/21/22 Principal diagnosis: Status post left total knee arthroplasty, acute respiratory distress, COPD, other medical comorbidities Patient was examined today at bedside, she is in the ICU currently. Develop acute respiratory distress yesterday evening, she was transferred to the ICU for further monitoring, she was not intubated at that time. She is being watched closely by the ICU team and pulmonology. I was contacted by the nursing staff and the ICU regarding patient will need to be discharged and threatening to leave AMA. I was able to bedside discuss this with her. Patient is very adamant about going home she is notably in the hospital. I made it clear that she has a high risk for the patient does leave AMA. She has been downgraded to a medical/surgical floor. She has a urinary catheter due to retention that was noted yesterday. She has not been up with physical therapy at this time. She states the pain is currently controlled. The On-Q pain cath remains in good position and condition. Objective - Vital Signs Vital signs: Vital Signs Temp 98.5 F 07/21/22 08:00 Pulse 116 H 07/21/22 10:00 Resp 15 07/21/22 10:00 BP 115/83 07/21/22 10:00 Pulse Ox 94 L 07/21/22 10:00 FiO2 Intake & Output 07/20/22 07/21/22 07/21/22 18:59 06:59 18:59 Intake Total 2751 240 60 Output Total 50 2275 380 Balance 2701 -2035 -320 Weight 97.4 kg 99.7 kg Intake: IV 2751 240 60 Lactated Ringers 1,000 ml 240 60 @ 20 mls/hr IV .Q24H [facility] Rx#:[id number] Output: Urine 2275 380 Estimated Blood Loss 50 Other: Voiding Method Indwelling Catheter Indwelling Catheter # Voids 0 # Bowel Movements 0 - Exam Left lower extremity: Postoperative Lionel bandage was removed. The is foam dressing in good condition. There is minimal soft tissue swelling and ecchymosis surrounding the medial and lateral aspects of the incision. Calf is soft, no tenderness with palpation. Plantar flexion, dorsiflexion, EHL, FHL are intact. Sensory exam to light touch throughout the extremity is intact, dorsal pedis pulses 2+. - Labs CBC & Chem 7: 07/21/22 05:00 07/21/22 05:00 Labs: Abnormal Lab Results - Last 24 Hours (Table) 07/20/22 07/20/22 07/20/22 Range/Units 17:53 19:14 19:53 WBC 15.1 H (3.8-10.6) k/uL Neutrophils # 13.7 H (1.3-7.7) k/uL Lymphocytes # 0.7 L (1.0-4.8) k/uL ABG pO2 54 L* (83-108) mmHg ABG O2 Saturation 87.0 L (94-97) % Sodium (137-145) mmol/L Potassium (3.5-5.1) mmol/L BUN (7-17) mg/dL Creatinine (0.52-1.04) mg/dL Glucose (74-99) mg/dL POC Glucose (mg/dL) 130 H (70-110) mg/dL 07/20/22 07/21/22 07/21/22 Range/Units 19:53 03:49 05:00 WBC 13.1 H (3.8-10.6) k/uL Neutrophils # 11.8 H (1.3-7.7) k/uL Lymphocytes # 0.7 L (1.0-4.8) k/uL ABG pO2 (83-108) mmHg ABG O2 Saturation (94-97) % Sodium 136 L (137-145) mmol/L Potassium 5.4 H (3.5-5.1) mmol/L BUN (7-17) mg/dL Creatinine 0.51 L (0.52-1.04) mg/dL Glucose 127 H (74-99) mg/dL POC Glucose (mg/dL) 179 H (70-110) mg/dL 07/21/22 Range/Units 05:00 WBC (3.8-10.6) k/uL Neutrophils # (1.3-7.7) k/uL Lymphocytes # (1.0-4.8) k/uL ABG pO2 (83-108) mmHg ABG O2 Saturation (94-97) % Sodium 135 L (137-145) mmol/L Potassium (3.5-5.1) mmol/L BUN 21 H (7-17) mg/dL Creatinine (0.52-1.04) mg/dL Glucose 157 H (74-99) mg/dL POC Glucose (mg/dL) (70-110) mg/dL Assessment and Plan Assessment: Postoperative day #1 status post left total knee arthroplasty Acute respiratory distress, resolving COPD Other medical comorbidities Plan: Had a long discussion today with the patient at bedside regarding the need to stay in the hospital for at least another night for continuing evaluation. Patient again was very adamant that she does not want to stay in the hospital and threatened to leave AMA. Discussed with the patient the need to remove Nobles catheter for a trial void, physical therapy evaluation to include a walker training, and also to continue to evaluate her pain control. Patient did seem agreeable with this plan for recheck later this afternoon Pain medications as needed DVT prophylaxis, continue subcu medication Remove nobles catheter, trial void Weight-bear as tolerated, utilize walker PT/OT Other medical laboratory scientist and recommendations appreciated Discharge planning: We'll evaluate patient later this afternoon to determine possible discharge Time with Patient: Less than 30
[2022-07-21 11:25] LABS: Glucose,Whole Blood 156 mg/dL (70-110)
--- NOTE | 2022-07-21 11:27 | P.CONS ---
History of Present Illness - Reason for Consult Consult date: 07/21/22 Medical management Requesting physician: Lam Mota - History of Present Illness This is a 61-year-old female with medical history of Gastritis, COPD, hypertension, prior cardiac stenting, patient is also a former smoker. Patient is postoperative day #1 left total knee arthroplasty, this was an elective procedure. Patient required intensive care postoperatively secondary to difficulty breathing. Patient after being moved to the ICU had an episode of coffee ground emesis. A chest CT angiography was performed showing no pulmonary embolism, bibasilar wedge-shaped dependent atelectasis changes, correlate for superimposed infection. Bilateral suspected adrenal lipid rich adenomas, large hiatal hernia with layering debris within the esophagus. Correlate for achalasia, esophageal dysmotility and/or reflux. Patient has mild leukocytosis, currently kidney function is stable, potassium was mildly elevated at 5.4 postoperatively today is 4.5. Blood glucose is stable. ProBNP was completed and is normal at 184. A gastric occult was positive for blood. Patient is also experiencing urinary retention. Patient is on a heart healthy diet this morning, she is currently on room air. She has been started on DuoNeb treatments as well as IV Solu-medrol to 40 mg every 8 hours for a probable COPD exacerbation, Patient is a bit tachy today and has been resumed on carvedilol today. Patient does follow with Dr. Anabel Cunningham and had an EGD done back in August of 2021 which revealed severe reflux esophagitis. Patient had a small bowel endoscopy done in January of 2022 which reveals no active bleeding, angioectasia or other mucosal pathology. She is maintained on PPI daily. REVIEW OF SYSTEMS: CONSTITUTIONAL: No fever, no malaise, no fatigue. HEENT: No recent visual problems or hearing problems. Denied any sore throat. CARDIOVASCULAR: No chest pain, orthopnea, PND, no palpitations, no syncope. PULMONARY: No shortness of breath, no cough, no hemoptysis. GASTROINTESTINAL: No diarrhea, no nausea, no vomiting, no abdominal pain. NEUROLOGICAL: No headaches, no weakness, no numbness. HEMATOLOGICAL: Denies any bleeding or petechiae. GENITOURINARY: Denies any burning micturition, frequency, or urgency. MUSCULOSKELETAL/RHEUMATOLOGICAL: Reports significant left knee pain. ENDOCRINE: Denies any polyuria or polydipsia. The rest of the 14-point review of systems is negative. PHYSICAL EXAMINATION: GENERAL: The patient is alert and oriented x3, not in any acute distress. Well developed, well nourished. HEENT: Pupils are round and equally reacting to light. EOMI. No scleral icterus. No conjunctival pallor. Normocephalic, atraumatic. No pharyngeal erythema. No thyromegaly. CARDIOVASCULAR: S1 and S2 present. No murmurs, rubs, or gallops. PULMONARY: Faint scattered expiratory wheezing. ABDOMEN: Soft, nontender, nondistended, normoactive bowel sounds. No palpable organomegaly. MUSCULOSKELETAL: Mild left lower extremity lower extremity edema. Post surgical left knee. EXTREMITIES: No cyanosis, clubbing, or pedal edema. NEUROLOGICAL: Gross neurological examination did not reveal any focal deficits. SKIN: No rashes. Assessment and Plan Assessment Postoperative day #1 total left knee arthroplasty, elective Mild acute COPD exacerbation Acute hypoxic respiratory failure secondary to above currently weaned to room air Episode of coffee ground emesis x1 with positive gastric occult Leukocytosis Hyperglycemia likely steroid induced. Gastroesophageal reflux disease with severe reflux esophagitis back in 08/2021 on EGD. Coronary artery disease with prior PCI Hypertension Hyperlipidemia History of vertigo Former smoker Osteoarthritis Obesity GI prophylaxis DVT prophylaxis as per primary Full Code Plan Resume home carvedilol, hold valsartan blood pressure now on the lower side Continue IV solu-medrol and duonebs per pulmonary Patient is counseled on diet for esophagitis and limiting acidic foods and cutting back on coffee intake Continue on PPI twice a day and follow up closely with Dr. Anabel Cunningham on discharge Patient encouraged to increase activity level, incentive spirometer Started on flomax and voiding trial in place today PT recommending home with homecare and patient is recommended for 24/7 care, patient does care for her elderly mother at home. Recommending patient to stay overnight for 1 more night and PT recommending 1 more night as well. Patient would like to be discharged home today. The impression and plan of care has been dictated by Mamta Townsend, Nurse Practitioner as directed. Dr. Jair MD I have performed a history and physical examination and medical decision making of this patient, discussed the same with the dictator, and agree with the dictators assessment and plan as written, documented as a scribe. Based on total visit time, I have performed more than 50% of this visit. Past Medical History Past Medical History: COPD, GERD/Reflux, Hyperlipidemia, Hypertension, Myocardial Infarction (CT), Osteoarthritis (OA), Thyroid Disorder Additional Past Medical History / Comment(s): PT WAS ON ANTIBIOTICS FOR EAR DRUM ISSUE IN JUNE 2022. PT HAS PERIODS OF VERTIGO Last Myocardial Infarction Date:: 08/10/13 History of Any Multi-Drug Resistant Organisms: None Reported Past Surgical History: Cholecystectomy, Heart Catheterization With Stent, Joint Replacement Additional Past Surgical History / Comment(s): RT TKA, COLONOSCOPY Past Anesthesia/Blood Transfusion Reactions: No Reported Reaction Date of Last Stent Placement:: 08/10/13 Smoking Status: Former smoker - Past Family History Mother Family Medical History: Coronary Artery Disease (CAD), Hypertension, Myocardial Infarction (CT) Father Family Medical History: Cancer Medications and Allergies Home Medications Medication Instructions Recorded Confirmed Type Ipratropium/Albuterol Sulfate 1 puff INHALATION RT-QID PRN 06/24/17 07/20/22 History [Combivent Respimat Inhaler] Umeclidinium [place] [Incruse 1 puff INHALATION RT-DAILY 06/24/17 07/20/22 History Ellipta] Atorvastatin [Lipitor] 40 mg PO HS 10/22/18 07/20/22 History Levothyroxine Sodium [Synthroid] 175 mcg PO DAILY 10/22/18 07/20/22 History Aspirin [Adult Low Dose Aspirin EC] 81 mg PO BID #60 tablet. 01/30/20 07/20/22 Rx Desvenlafaxine [Pristiq ER] 100 mg PO DAILY 04/02/21 07/20/22 History Omeprazole [PriLOSEC] 20 mg PO AC-BID 04/02/21 07/20/22 History Ferrous Sulfate [Iron] 325 mg PO DAILY 02/03/22 07/20/22 History Meclizine [Antivert] 25 mg PO DAILY PRN 02/03/22 07/20/22 History Valsartan 40 mg PO HS 02/03/22 07/20/22 History carvediloL [Coreg] 6.25 mg PO BID-W/MEALS 02/03/22 07/20/22 History Allergies Allergy/AdvReac Type Severity Reaction Status Date / Time hydrocodone bitartrate AdvReac VERY Verified 07/20/22 06:18 [From Vicodin] RESTLESS, ANXIETY Physical Exam Vitals: Vital Signs Temp Pulse Pulse Pulse Resp BP BP 07/21/22 08:21 102 H 07/21/22 08:11 97 07/21/22 08:10 99 07/21/22 07:59 106 H 07/21/22 07:58 07/21/22 07:00 90 21 121/88 07/21/22 06:00 105 H 20 140/91 07/21/22 05:00 94 19 134/78 07/21/22 04:00 97.5 F L 94 12 151/72 07/21/22 03:00 93 17 147/86 07/21/22 02:00 89 19 151/80 07/21/22 01:00 96 20 145/75 07/21/22 00:08 98 25 H 07/21/22 00:00 98.3 F 93 14 140/70 07/20/22 23:00 91 16 136/88 07/20/22 22:00 82 25 H 146/89 07/20/22 21:00 84 23 161/74 07/20/22 20:00 97.8 F 76 16 164/83 07/20/22 19:13 07/20/22 17:45 76 18 157/86 07/20/22 14:21 97.5 F L 69 16 173/85 07/20/22 13:26 69 16 151/77 07/20/22 13:11 69 16 153/80 07/20/22 12:56 70 16 169/71 07/20/22 12:41 71 16 152/80 07/20/22 12:26 70 16 166/93 07/20/22 12:11 91 16 161/77 07/20/22 11:56 73 16 166/82 07/20/22 11:41 71 16 167/82 07/20/22 11:27 07/20/22 11:26 73 14 167/71 07/20/22 11:20 67 16 164/88 07/20/22 11:05 68 16 148/78 07/20/22 10:50 64 16 149/65 07/20/22 10:25 64 16 168/77 07/20/22 10:10 73 16 152/72 07/20/22 09:55 64 16 131/60 07/20/22 09:40 96.8 F L 69 16 140/60 Pulse Ox 07/21/22 08:21 07/21/22 08:11 07/21/22 08:10 07/21/22 07:59 07/21/22 07:58 96 07/21/22 07:00 96 07/21/22 06:00 93 L 07/21/22 05:00 94 L 07/21/22 04:00 94 L 07/21/22 03:00 98 07/21/22 02:00 98 07/21/22 01:00 99 07/21/22 00:08 97 07/21/22 00:00 97 07/20/22 23:00 95 07/20/22 22:00 97 07/20/22 21:00 98 07/20/22 20:00 95 07/20/22 19:13 95 07/20/22 17:45 90 L 07/20/22 14:21 95 07/20/22 13:26 98 07/20/22 13:11 98 07/20/22 12:56 98 07/20/22 12:41 97 07/20/22 12:26 98 07/20/22 12:11 99 07/20/22 11:56 98 07/20/22 11:41 98 07/20/22 11:27 98 07/20/22 11:26 88 L 07/20/22 11:20 97 07/20/22 11:05 96 07/20/22 10:50 96 07/20/22 10:25 97 07/20/22 10:10 92 L 07/20/22 09:55 92 L 07/20/22 09:40 94 L Intake and Output 07/20/22 07/21/22 07/21/22 22:59 06:59 14:59 Intake Total 60 180 Output Total 1425 850 Balance -0388 -230 Intake: IV 60 180 Lactated Ringers 1,000 ml 60 180 @ 20 mls/hr IV .Q24H [facility] Rx#:[id number] Output: Urine 1425 850 Other: Voiding Method Indwelling Catheter Indwelling Catheter # Voids 0 # Bowel Movements 0 Weight 97.4 kg 99.7 kg Results CBC & Chem 7: 07/21/22 05:00 07/21/22 05:00 Labs: Abnormal Lab Results - Last 24 Hours (Table) 07/20/22 07/20/22 07/20/22 Range/Units 17:53 19:14 19:53 WBC 15.1 H (3.8-10.6) k/uL Neutrophils # 13.7 H (1.3-7.7) k/uL Lymphocytes # 0.7 L (1.0-4.8) k/uL ABG pO2 54 L* (83-108) mmHg ABG O2 Saturation 87.0 L (94-97) % Sodium (137-145) mmol/L Potassium (3.5-5.1) mmol/L BUN (7-17) mg/dL Creatinine (0.52-1.04) mg/dL Glucose (74-99) mg/dL POC Glucose (mg/dL) 130 H (70-110) mg/dL 07/20/22 07/21/22 07/21/22 Range/Units 19:53 03:49 05:00 WBC 13.1 H (3.8-10.6) k/uL Neutrophils # 11.8 H (1.3-7.7) k/uL Lymphocytes # 0.7 L (1.0-4.8) k/uL ABG pO2 (83-108) mmHg ABG O2 Saturation (94-97) % Sodium 136 L (137-145) mmol/L Potassium 5.4 H (3.5-5.1) mmol/L BUN (7-17) mg/dL Creatinine 0.51 L (0.52-1.04) mg/dL Glucose 127 H (74-99) mg/dL POC Glucose (mg/dL) 179 H (70-110) mg/dL 07/21/22 Range/Units 05:00 WBC (3.8-10.6) k/uL Neutrophils # (1.3-7.7) k/uL Lymphocytes # (1.0-4.8) k/uL ABG pO2 (83-108) mmHg ABG O2 Saturation (94-97) % Sodium 135 L (137-145) mmol/L Potassium (3.5-5.1) mmol/L BUN 21 H (7-17) mg/dL Creatinine (0.52-1.04) mg/dL Glucose 157 H (74-99) mg/dL POC Glucose (mg/dL) (70-110) mg/dL Assessment and Plan Time with Patient: Greater than 30
[2022-07-21] MEDS ORDERED: TAMSULOSIN 0.4 MG CAP.ER.24H PO SCH (11:30)
[2022-07-21] MEDS ORDERED: INSULIN ASPART (NovoLOG) 100 UNIT/ML VIAL SQ SCH (12:30)
[2022-07-21 15:31] LABS: T4, Free (Free Thyroxine) 2.04 ng/dL (0.78-2.19)
[2022-07-21] MEDS ORDERED: PANTOPRAZOLE 40 MG TABLET PO SCH (17:30)
[2022-07-21 17:46] VITALS: BP 123/87; PULSE 113; RESP 15; TEMP 98.2
[2022-07-21] MEDS ORDERED: VALSARTAN 40 MG TAB PO SCH (21:00)
[2022-07-21] MEDS ORDERED: ATORVASTATIN 40 MG TAB PO SCH (21:00)
--- NOTE | 2022-07-22 09:59 | P.DS ---
Providers Date of admission: 07/20/22 20:59 Expected date of discharge: 07/21/22 Attending physician: Jignesh Urban Consults: 07/20/22 12:38 Consult Physician Routine Consulting Provider: Walker Tenorio Consult Reason/Comments: Medical Management Do you want consulting provider notified?: Yes 07/20/22 18:17 Consult Physician Urgent Consulting Provider: Paul Hernandez Consult Reason/Comments: ICU management Do you want consulting provider notified?: Already Contacted 07/20/22 20:58 Consult Physician Stat Consulting Provider: Jignesh Urban Consult Reason/Comments: ICU admission Do you want consulting provider notified?: Already Contacted Primary care physician: Dieter Wheat [facility] Course: Date of admission: 07/20/2022 Date of discharge: 07/21/2022 Admission diagnosis: Status post left total knee arthroplasty Discharge diagnosis: Same Attending physician: Dr. Urban Surgical procedures: Left total knee arthroplasty Brief history: Patient is a 61-year-old female with a history of progressive primary left knee osteoarthritis. At this point patient has failed conservative treatment measures and has opted to proceed with a elective left total knee arthroplasty. Hospital course: Details of patient's surgery can be found in operative report. Patient tolerated the procedure well and was subsequently transported to orthopedic floor. Patient's orthopeidc and medical care was provided daily. Patient had daily laboratory tests performed for evaluation of overall blood counts. Patient had daily physical therapy to include strengthening range of motion as well as education with walker ambulation. Patient was treated with Lovenox for their postoperative DVT prophylaxis during their inpatient stay. Patient did develop severe upon determined after distress overnight, she was transferred to the ICU for monitoring. Patient was followed closely by pulmonology during her stay. Patient is adamant about being discharged home, she does not want to stay in the hospital and would leave AMA. Patient reported satisfactory pain control with oral pain medications by postoperative day 0. Patient showed satisfactory progress with physical therapy. Advised patient to remain in hospital for an additional night for observation, she declined. She was notified of the risk of leaving AMA, patient proceeded to leave AMA. Discharge condition/disposition: Patient will be discharged home in stable condition. Discharge medications: Instructions are given on resumption of patient's normal daily medications per primary care recommendation, in addition patient will be prescribed Tramadol 50mg, Senna-S, Aspirin. Discharge instructions: 1. Wound care and infection precautions, keep incision dry and covered while showering, no lotions, creams, moisturizers. No soaking, tubs, pools, hottubs. Do not scrub over the incision. 2. Weight-bear as tolerated with walker / cane until follow-up. 3. Ice and elevate when necessary. Do not exceed 20 minutes per hour with ice pack. 4. Utilize compression sleeve until seen at first follow up appointment. 5. Visiting nursing care. 6. Home physical therapy including home CPM. 7. Pain meds and anticoagulants per prescription. 8. Pain medication has potential to cause constipation. Increase oral fluid and fiber intake. Contact primary care provider if you have not had a bowel movement within 48 hours after discharge 9. No anti-inflammatory medication until discussed at first post operative visit, this including Motrin, Aleve, Mobic, Diclofenac. 10. Follow up in office at 2 weeks postop with Emre Mota PA-C/Jim Reynolds 11. Follow up with your primary care doctor 7-10 days after discharge. 12. Contact [facility] with any questions, . Procedures: Left total knee arthroplasty Patient Condition at Discharge: Stable Plan - Discharge Summary Discharge Rx Participant: Yes New Discharge Prescriptions: New Aspirin [Adult Low Dose Aspirin EC] 81 mg PO BID #60 tab traMADol HCl [Ultram] 50 mg PO Q6H PRN #28 tab PRN Reason: Pain Budesonide [Pulmicort] 1 mg INHALATION RT-BID #1 each Sennosides/Docusate Sodium [Senna-S 8.6-50 mg Tablet] 1 each PO DAILY PRN #21 tablet PRN Reason: Constipation Continue Umeclidinium [place] [Incruse Ellipta] 1 puff INHALATION RT-DAILY Ipratropium/Albuterol Sulfate [Combivent Respimat Inhaler] 1 puff INHALATION RT-QID PRN PRN Reason: Shortness Of Breath Levothyroxine Sodium [Synthroid] 175 mcg PO DAILY Atorvastatin [Lipitor] 40 mg PO HS Desvenlafaxine [Pristiq ER] 100 mg PO DAILY Meclizine [Antivert] 25 mg PO DAILY PRN PRN Reason: dizziness Ferrous Sulfate [Iron] 325 mg PO DAILY Omeprazole [PriLOSEC] 20 mg PO AC-BID Changed carvediloL [Coreg] 3.125 mg PO BID-W/MEALS #0 Discontinued Aspirin [Adult Low Dose Aspirin EC] 81 mg PO BID #60 tablet. Valrtan 40 mg PO HS Discharge Medication List Ipratropium/Albuterol Sulfate [Combivent Respimat Inhaler] 1 puff INHALATION RT- QID PRN 06/24/17 [History] Umeclidinium [place] [Incruse Ellipta] 1 puff INHALATION RT-DAILY 06/24/17 [History] Atorvastatin [Lipitor] 40 mg PO HS 10/22/18 [History] Levothyroxine Sodium [Synthroid] 175 mcg PO DAILY 10/22/18 [History] Desvenlafaxine [Pristiq ER] 100 mg PO DAILY 04/02/21 [History] Omeprazole [PriLOSEC] 20 mg PO AC-BID 04/02/21 [History] Ferrous Sulfate [Iron] 325 mg PO DAILY 02/03/22 [History] Meclizine [Antivert] 25 mg PO DAILY PRN 02/03/22 [History] Aspirin [Adult Low Dose Aspirin EC] 81 mg PO BID #60 tab 07/21/22 [Rx] Budesonide [Pulmicort] 1 mg INHALATION RT-BID #1 each 07/21/22 [Rx] Sennosides/Docusate Sodium [Senna-S 8.6-50 mg Tablet] 1 each PO DAILY PRN #21 tablet 07/21/22 [Rx] carvediloL [Coreg] 3.125 mg PO BID-W/MEALS #0 07/21/22 [Rx] traMADol HCl [Ultram] 50 mg PO Q6H PRN #28 tab 07/21/22 [Rx] Follow up Appointment(s)/Referral(s): [facility], [NON-STAFF] - 1 Week Lashawn Cunningham MD [STAFF PHYSICIAN] - 09/02/22 4:15 pm (Appointment has been requested for 1 week. No appointment available until August. Office has placed patient on cancellation list and will call when appointment becomes available.) [facility], [NON-STAFF] - 1 Week Dieter Wheat DO [Primary Care Provider] - 3 Days Lam Mota PAC [PHYSICIAN PATTERN GRADER] - 08/05/22 4:10 pm Patient Instructions/Handouts: Knee Replacement (DC) Activity/Diet/Wound Care/Special Instructions: Orthopedic Discharge Instructions: 1. Wound care and infection precautions, keep incision dry and covered while showering, no lotions, creams, moisturizers. No soaking, pools, hot tubs. Do not scrub over incision. 2. Weight-bear as tolerated with walker / cane until follow-up. 3. Ice and elevate when necessary. Do not exceed 20 minutes per hour with ice pack. 4. Utilize compression sleeve until seen at first follow up appointment. 5. Pain meds and anticoagulants per prescription. 6. Pain medication has potential to cause constipation. Increase oral fluid and fiber intake. Contact primary care provider if you have not had a bowel movement within 48 hours after discharge. 7. No anti-inflammatory medication until discussed at first post operative visit, this including Motrin, Aleve, Mobic, Diclofenac. 8. Follow up in office at 2 weeks postop with Emre Mota PA-C / Jim Mane PA-C 9. Follow up with your primary care doctor 7-10 days after discharge. 10. Contact [facility] with any questions, . Keep incision clean, dry contact. While showering, cover silver foam dressing with Saran wrap. Silver foam dressing may be removed in 7 days, 07/27/2022. May shower directly over incision once silver foam dressing is ivette aram. Recommend to hold valsartan and monitor blood pressure at home. If blood pressure is above 130s systolic ok to resume. Decrease carvediolol to 3.125 mg BID. Follow up with your stock fitter, Dr. Anabel Cunningham and your primary provider in 3 days. Continue with incentive spirometer 10 x an hour. Recommend limiting acidic foods and caffeine intake. Discharge Disposition: Left Against Medical Advice
== END 2022-07-21 17:11 | disposition left against medical advice (07) | DRG 326 ==
LOC: OR 05:33 → 4SSUR 13:17 → 2SICU 18:53 → OR 20:59 → 2SICU 20:59
PROVIDERS: ADMIT Orthopaedic Surgery; ATTEND Orthopaedic Surgery
PROC: 3E0T3BZ Introduction of Anesthetic Agent into Peripheral Nerves and Plexi, Percutaneous Approach (ICD-10-PCS; 2022-07-20)
PROC: 0SRD069 Replacement of Left Knee Joint with Oxidized Zirconium on Polyethylene Synthetic Substitute, Cemented, Open Approach (ICD-10-PCS; principal; 2022-07-20 07:30)
PROC: 5A0935A Assistance with Respiratory Ventilation, Less than 24 Consecutive Hours, High Flow/Velocity Cannula (ICD-10-PCS; 2022-07-21)
DX: M17.12 Unilateral primary osteoarthritis, left knee (principal); J96.01 Acute respiratory failure with hypoxia; J44.1 Chronic obstructive pulmonary disease with (acute) exacerbation; E66.9 Obesity, unspecified; I10 Essential (primary) hypertension; E03.9 Hypothyroidism, unspecified; M25.762 Osteophyte, left knee; I25.10 Atherosclerotic heart disease of native coronary artery without angina pectoris; E78.5 Hyperlipidemia, unspecified; R11.10 Vomiting, unspecified; R33.9 Retention of urine, unspecified; T38.0X5A Adverse effect of glucocorticoids and synthetic analogues, initial encounter; R73.9 Hyperglycemia, unspecified; K22.70 Barrett's esophagus without dysplasia; K44.9 Diaphragmatic hernia without obstruction or gangrene; D35.02 Benign neoplasm of left adrenal gland; D35.01 Benign neoplasm of right adrenal gland; D72.829 Elevated white blood cell count, unspecified; Z53.29 Procedure and treatment not carried out because of patient's decision for other reasons; Z96.651 Presence of right artificial knee joint; Z68.37 Body mass index [BMI] 37.0-37.9, adult; Z95.5 Presence of coronary angioplasty implant and graft; Z87.891 Personal history of nicotine dependence; I25.2 Old myocardial infarction; Z79.890 Hormone replacement therapy; Z79.899 Other long term (current) drug therapy; Z79.82 Long term (current) use of aspirin; Z88.5 Allergy status to narcotic agent; Z87.19 Personal history of other diseases of the digestive system; Z79.51 Long term (current) use of inhaled steroids
CPT/HCPCS: 36600; 64448; 64999; 71045; 71275; 80048; 82271; 82805; 83036; 83735; 83880; 84439; 84443; 85025; 88300; 94640

== ENCOUNTER → 2022-08-27 | Outpatient (CLI) | payer OTHER ==
--- NOTE | 2022-08-27 11:58 | CT ---
EXAMINATION TYPE: CT adrenal glands wo/w con CT DLP: 1987.6 mGycm, Automated exposure control for dose reduction was used. DATE OF EXAM: 08/27/2022 11:39 AM COMPARISON: CTA chest 07/20/2022 CLINICAL INDICATION:Female, 61 years old with history of R19.09 INTRA ABD AND PELVIC SWELLING,MASS AN D LUMP; ABDOMINAL MASS, ADRENALS TECHNIQUE: Multiphase CT of the abdomen following the administration of 100 cc of Isovue 300 IV cont rast material and oral contrast. Coronal and sagittal reformats were performed. FINDINGS: LOWER CHEST: Unremarkable ABDOMEN LIVER: Unremarkable GALLBLADDER AND BILE DUCTS: The gallbladder is surgically absent. PANCREAS: Unremarkable. SPLEEN: Unremarkable. ADRENAL GLANDS: Bilateral adrenal gland nodules with the right measuring up to 2.0 cm and the left me asuring up to 2.2 cm. Additional left lateral limb 1.5 cm nodule. These demonstrate attenuation consi stent with benign adrenal lipid adenomas. KIDNEYS AND URETERS: No evidence of hydronephrosis or renal calculus. Contrast is demonstrated within both collections systems on the delayed phase. Subcentimeter hypodense focus within the right mid ki dney which is too small to accurately characterize and likely represents a proteinaceous/hemorrhagic cyst. STOMACH AND BOWEL: Moderate to large size hiatal hernia redemonstrated.Partial visualization of the s igmoid diverticulosis without visualized acute diverticulitis. Enteric contrast reaches the mid small bowel. No evidence of bowel obstruction. PERITONEUM: No evidence of pneumoperitoneum or free fluid. VASCULATURE: Moderate atherosclerotic calcifications are present throughout the abdominal aorta and i ts branches. No evidence of aortic aneurysm. MUSCULOSKELETAL: No acute osseous abnormalities LYMPH NODES: No gross evidence for lymphadenopathy. SOFT TISSUE/ABDOMINAL WALL: Unremarkable IMPRESSION: 1. No acute process. 2. Bilateral adrenal nodules with attenuation consistent with benign lipid rich adenomas. 3. Moderate to large size hiatal hernia redemonstrated.
== END | disposition home or self-care (01) ==
LOC: RADCTMAIN 10:16
PROVIDERS: ATTEND Family Medicine
DX: K44.9 Diaphragmatic hernia without obstruction or gangrene (principal); E27.8 Other specified disorders of adrenal gland; R19.09 Other intra-abdominal and pelvic swelling, mass and lump
CPT/HCPCS: 74170; Q9967

== ENCOUNTER → 2022-11-06 | Outpatient (CLI) | payer OTHER ==
[2022-11-06 16:51] LABS: ALT 11 U/L (8-44); AST 18 U/L (13-35); Albumin 4.2 d/dL (3.8-4.9); Albumin/Globulin Ratio 1.27 Ratio (1.60-3.17); Alkaline Phosphatase 76 U/L (41-126); BUN/Creat Ratio 11.57 Ratio (12.00-20.00); Blood Urea Nitrogen 8.1 mg/dL (9.0-27.0); Calcium 9.3 mg/dL (8.7-10.3); Carbon Dioxide 25.5 mmol/L (21.6-31.8); Chloride 104 mmol/L (96-109); Chol/HDL Ratio 5.04 Ratio; Globulin 3.3 d/dL (1.6-3.3); Glucose 103 mg/dL (70-110); LDL Cholesterol,Calculated 130.9 mg/dL (0.0-131.0); Potassium 4.6 mmol/L (3.5-5.5); Sodium 140 mmol/L (135-145); Total Bilirubin 0.4 mg/dL (0.3-1.2); Total Protein 7.5 d/dL (6.2-8.2)
== END | disposition home or self-care (01) ==
LOC: LABWHC1 11:20
PROVIDERS: ATTEND Internal Medicine Interventional Cardiology
DX: E78.2 Mixed hyperlipidemia (principal)
CPT/HCPCS: 36415; 80053; 80061

== ENCOUNTER → 2023-03-01 | Outpatient (CLI) | payer OTHER ==
[2023-03-01 15:56] LABS: ALT 11 U/L (8-44); AST 10 U/L (13-35); Chol/HDL Ratio 5.27 Ratio; LDL Cholesterol,Calculated 120.2 mg/dL (0.0-131.0)
== END | disposition home or self-care (01) ==
LOC: LABWHC1 10:22
PROVIDERS: ATTEND Nurse Practitioner Adult Health
DX: E78.2 Mixed hyperlipidemia (principal)
CPT/HCPCS: 36415; 80061; 84450; 84460

== ENCOUNTER → 2023-03-26 | Day surgery (SDC) | payer OTHER ==
[~2023-03-26] MED LIST changes: -ACETAMINOPHEN TAB 500 MG TAB PO PRN; +ALPRAZolam 0.25 MG TAB PO PRN; +ALPRAZolam 0.5 MG TAB PO PRN; +ASPIRIN 325 MG TAB PO ONE; +ASPIRIN 81 MG PO SCH; +ATORVASTATIN 80 MG TAB PO SCH; +DESVENLAFAXINE SUCCINATE 50 MG TAB.ER.24H PO SCH; +EZETIMIBE 10 MG TAB PO SCH; +HEPARIN SODIUM 1,000 UN/ML (10ML VL) IV ONE; +HEPARIN SODIUM 1,000 UN/ML (10ML VL) ONE; +HEPARIN SODIUM,PORCINE (1 ML) 2,500 UNIT in SODIUM CHLORIDE 0.9% 250 ML IRRIGATION PRN; +HEPARIN SODIUM,PORCINE 10,000 UNIT in SODIUM CHLORIDE 0.9% 1,000 ML IRRIGATION PRN; +IOPAMIDOL-370 100ML BTL INJ ONE; +LEVOTHYROXINE 100 MCG TAB PO SCH; +LEVOTHYROXINE 75 MCG TAB PO SCH; +LIDOCAINE 1% INJ 10MG/ML (5 ML VIAL-PF) SQ ONE; -MELOXICAM 7.5 MG TAB PO PRN; +MIDAZOLAM 2 MG/2 ML VIAL IVP ONE; +NITROGLYCERIN SL TABS 0.4 MG TAB SUBLINGUAL PRN; +PANTOPRAZOLE 40 MG TABLET PO SCH; +RX INFO: IV CONTRAST WAS GIVEN 1 EACH MISC MISCELLANE PRN; +SODIUM CHLORIDE 0.9% 1,000 ML IV SCH; +SODIUM CHLORIDE 0.9% 1,000 ML in EMPTY BAG 1 BAG IV SCH; -TRANEXAMIC ACID IN NACL,ISO-OS 1,000 MG in SALINE 1 100ML.BAG IVPB PRN; +VERAPAMIL SYRINGE (5 MG/10 ML) INTRAARTER ONE; +carvediloL 6.25 MG TAB PO SCH; +fentaNYL (PF) 50 MCG/ML 2 ML AMP IVP ONE; +fentaNYL (PF) 50 MCG/ML 2 ML AMP ONE
[2023-03-26 06:48] LABS: Basophils % (A) 0 %; Eosinophils % (A) 0 %; HCT 38.5 % (34.0-46.0); Lymphocytes # (A) 1.9 k/uL (1.0-4.8); Lymphocytes % (A) 23 %; MCH 32.8 pg (25.0-35.0); MCHC 33.7 g/dL (31.0-37.0); MCV 97.4 fL (80.0-100.0); Monocytes # (A) 0.5 k/uL (0-1.0); Monocytes % (A) 6 %; Neutrophils # (A) 5.7 k/uL (1.3-7.7); Neutrophils % (A) 70 %; Platelet Count 279 k/uL (150-450); RBC 3.95 m/uL (3.80-5.40); RDW 13.2 % (11.5-15.5); WBC 8.1 k/uL (3.8-10.6)
[2023-03-26 06:58] LABS: African American GFR (CKD) >90 (>60 ml/min/1.73 sqM); Anion Gap 10 mmol/L; Blood Urea Nitrogen 6 mg/dL (7-17); Carbon Dioxide 21 mmol/L (22-30); Chloride 108 mmol/L (98-107); Glucose 110 mg/dL (74-99); Non-African American GFR(CKD) >90 (>60 ml/min/1.73 sqM); Potassium 3.9 mmol/L (3.5-5.1); Sodium 139 mmol/L (137-145)
[2023-03-26 07:03] VITALS: TEMP 98.1
--- NOTE | 2023-03-26 08:20 | P.CARDCATH ---
Date of Procedure: 03/26/23 Description of Procedure: Cardiac Catheterization: The patient is a 62-year-old female with a known history of hypertension, hyperlipidemia, history of CAD status post stenting in 2014 who has been complaining of chest discomfort and had an abnormal MPI. Recommendations were made regarding cardiac catheterization, the risks and the complications were discussed with the patient who is in full understanding and agreement. Procedure Description: Patient was brought to pathology laboratory aides teacher in fasting semi-sedated state after receiving Fentanyl and Benadryl achieiving moderate conscious sedated state. Using Xylocaine Anesthesia and modified Seldinger technique, a 6-Honduran sheath was introduced in the right radial artery . Subsequently, selective coronary angiography was performed using a 5-Honduran 3.5 bend Norma catheter. Multiple views of the coronary artery including hemiaxial views were obtained. The right Norma catheter was used to cross the aortic valve and LVEDP was calculated. Following that, catheter and sheath were removed. Hemostasis was obtained with deployment of vascular band . There was no immediate complication. Patient was returned to room in stable condition. Of note, the patient received a total of 5000 units of intravenous heparin as well as intra-arterial verapamil. Findings: Left main: This is a large size vessel, bifurcating into LAD and left circumflex, left main has no obstructive disease LAD: This is a large size vessel, tapers down in the distal third, give rise to a large diagonal branch. The mid LAD stent is patent with no evidence of in- stent restenosis Left circumflex: This is a nondominant vessel giving rise to 2 obtuse marginal branch of moderate to large caliber. The left circumflex has no evidence of obstructive disease RCA: This is a large dominant vessel, bifurcating into PDA and PLV, the right coronary artery and its branches have no obstructive disease Left Ventriculogram: Not performed Hemodynamics: There was no gradient across the aortic valve, LVEDP was 14-16 mmHg Conclusion: 1. Patent stent in the LAD 2. No evidence of significant obstructive disease in the left circumflex and RCA 3. Right dominance 4. Normal LVEDP Recommendations: The patient will continue on present therapy, I see no evidence of significant progression of disease. The findings and the recommendations were discussed with the patient and the family and they were in full understanding and agreement. Duration of sedation is 13 minutes.
[2023-03-26 09:55] VITALS: BP 108/57; RESP 14
[2023-03-26 10:19] VITALS: PULSE 68
== END | disposition home or self-care (01) ==
LOC: CATHCVL 05:32
PROVIDERS: ATTEND Internal Medicine Interventional Cardiology
DX: I25.10 Atherosclerotic heart disease of native coronary artery without angina pectoris (principal); I10 Essential (primary) hypertension; E78.5 Hyperlipidemia, unspecified; E03.9 Hypothyroidism, unspecified; Z88.6 Allergy status to analgesic agent; Z88.8 Allergy status to other drugs, medicaments and biological substances; Z87.891 Personal history of nicotine dependence; Z79.82 Long term (current) use of aspirin; Z79.899 Other long term (current) drug therapy; Z95.5 Presence of coronary angioplasty implant and graft
CPT/HCPCS: 99152; 93458; 80048; 85025; C1769 ×2; C1894; J2250; J2001; J3010; J1644; Q9967

== ENCOUNTER → 2023-05-05 | Outpatient (CLI) | payer OTHER ==
[2023-05-05 15:44] LABS: ALT 9 U/L (8-44); AST 10 U/L (13-35); LDL Cholesterol,Calculated 52.6 mg/dL (0.0-131.0)
== END | disposition home or self-care (01) ==
LOC: LABWHC1 11:09
PROVIDERS: ATTEND Internal Medicine Interventional Cardiology
DX: E78.2 Mixed hyperlipidemia (principal)
CPT/HCPCS: 36415; 80061; 84450; 84460

== ENCOUNTER → 2023-09-21 | Outpatient (CLI) | payer OTHER ==
--- NOTE | 2023-09-25 17:14 | MM ---
Reason for Exam: Screening (asymptomatic). Last mammogram was performed 2 year(s) and 11 month(s) ago. Patient History: Menarche at age 14. Patient has no children. Postmenopausal. Risk Values: Mary 5 year model risk: 1.6%. NCI Lifetime model risk: 7.9%. Prior Study Comparison: 03/10/2018 Bilateral Screening Mammogram, [facility]. 08/25/2019 Bilateral Screening Mammogram, [facility]. 10/25/2020 Bilateral Screening Mammogram, [facility]. Tissue Density: There are scattered areas of fibroglandular density. Findings: Analyzed By CAD. A few benign bilateral dermal calcifications. Benign oil cyst calcification left breast. There is no suspicious group of microcalcifications or new suspicious mass in either breast. Overall Assessment: Benign, BI-RAD 2 Management: Screening Mammogram of both breasts in 1 year. . Patient should continue monthly self-breast exams. A clinical breast exam by your physician is recommended on an annual basis. This exam should not preclude additional follow-up of suspicious palpable abnormalities. Note on Mary scores and lifetime risk: 1. A Mary score greater than 3% is considered moderate risk. If this is the case, consider specialist referral to assess eligibility for a risk reducing agent. 2. If overall lifetime risk for the development of breast cancer is 20% or higher, the patient may qualify for future screening with alternating mammogram and breast MRI. Electronically signed and approved by: Lizabeth Lira M.D. Radiologist
== END | disposition home or self-care (01) ==
LOC: RADMAMWWP 11:03
PROVIDERS: ATTEND Family Medicine
DX: Z12.31 Encounter for screening mammogram for malignant neoplasm of breast (principal); Z78.0 Asymptomatic menopausal state
CPT/HCPCS: 77063; 77067

== ENCOUNTER → 2024-04-13 | Outpatient (CLI) | payer OTHER ==
--- NOTE | 2024-04-13 09:16 | CT ---
EXAMINATION TYPE: CT brain wo con DATE OF EXAM: 04/13/2024 8:58 AM COMPARISON: CT 10/22/2018 CLINICAL INDICATION: Female, 63 years old with history of R51.9 Headache, Headache x 3 days TECHNIQUE: Brain: Axial CT images of the brain were obtained with coronal and sagittal reformats created and rev iewed. Contrast used: None. Oral contrast used: None. CT DLP: 1201 mGycm, Automated exposure control for dose reduction was used. FINDINGS: Brain: Extra-axial spaces: No abnormal extra-axial fluid collections. Ventricular system: Within normal limits Cerebral parenchyma: No acute intraparenchymal hemorrhage or mass effect. The botello-white junction is well differentiated. Cerebellum: Unremarkable. Mass effect: No evidence of midline shift. Intracranial vasculature: unremarkable Soft tissues: Normal. Calvarium/osseous structures: No depressed skull fracture. Bony lesion near the left anterior frontal lobe measuring 17 x 15 mm not significantly changed dating back to 10/22/2018 likely representing calc ified meningioma. Paranasal sinuses and mastoid air cells: Mild scattered paranasal sinus disease. Rightward deviated n josé septum. Visualized orbits: Orbital contents are intact. IMPRESSION: No acute intracranial process. 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 [facility], , 04/13/2024 9:14 AM
== END | disposition home or self-care (01) ==
LOC: RADCTMAIN 08:14
PROVIDERS: ATTEND Family Medicine
DX: J34.2 Deviated nasal septum (principal); R51.9 Headache, unspecified
CPT/HCPCS: 70450

== ENCOUNTER 2024-06-21 13:26 | Emergency (ER) | payer OTHER ==
[2024-06-21 13:30] VITALS: PULSE 69
--- NOTE | 2024-06-21 14:01 | ED ---
ENT HPI - General Chief complaint: ENT Stated complaint: L ear pain Time Seen by Provider: 06/21/24 14:01 Source: patient, RN notes reviewed Mode of arrival: ambulatory Limitations: no limitations - History of Present Illness Initial comments: 63-year-old female presenting to the ER for evaluation of left ear pain. Patient states about 2 weeks ago she started to notice left ear pain and was seen at urgent care. Patient was given amoxicillin and eardrops. She states she had no improvement of discomfort after this and return back to urgent care and was prescribed steroids and another round of amoxcillin. She states she was told she has a jaw muscle sprain. Patient reports last night her pain was interferring with her sleep prompting ER visit today. Patient has not taken any analgesic medications. She does report she has a small ear canal on the left side which has been since childhood. She denies any drainage from the ear, feve rs or chills. She does state her hearing is "muffled". She is also reporting pain to tragus. Patient denies any dizziness, lightheadedness, headache, cough, congestion, visual disturbances or other complaints at this time. Patient states she currently does not have insurance which is inhibiting her to follow- up with primary care and specialist. - Related Data Home Medications Medication Instructions Recorded Confirmed Ipratropium/Albuterol Sulfate 1 puff INHALATION RT-QID PRN 06/24/17 03/23/23 [Combivent Respimat Inhaler] Umeclidinium [place] [Incruse 1 puff INHALATION RT-DAILY PRN 06/24/17 03/23/23 Ellipta] Atorvastatin [Lipitor] 80 mg PO HS 10/22/18 03/26/23 Levothyroxine Sodium [Synthroid] 175 mcg PO DAILY 10/22/18 03/26/23 Desvenlafaxine [Pristiq ER] 50 mg PO DAILY 04/02/21 03/26/23 Omeprazole [PriLOSEC] 20 mg PO AC-BID 04/02/21 03/26/23 Ferrous Sulfate [Iron] 325 mg PO DAILY 02/03/22 03/26/23 Aspirin [Adult Low Dose Aspirin EC] 81 mg PO DAILY 03/23/23 03/26/23 Ezetimibe [Zetia] 10 mg PO DAILY 03/23/23 03/26/23 carvediloL [Coreg] 6.25 mg PO BID-W/MEALS 03/23/23 03/26/23 Previous Rx's Medication Instructions Recorded Amoxic-Pot Clav 875-125Mg 1 tab PO Q12HR #20 tab 06/21/24 [Augmentin 875-125] Allergies Allergy/AdvReac Type Severity Reaction Status Date / Time hydrocodone bitartrate AdvReac VERY Verified 06/21/24 13:30 [From Vicodin] RESTLESS, ANXIETY Review of Systems ROS Statement: Those systems with pertinent positive or pertinent negative responses have been documented in the HPI. ROS Other: All systems not noted in ROS Statement are negative. Past Medical History Past Medical History: COPD, GERD/Reflux, Hyperlipidemia, Hypertension, Myocardial Infarction ([place]), Osteoarthritis (OA), Pneumonia, Thyroid Disorder Additional Past Medical History / Comment(s): PT WAS ON ANTIBIOTICS FOR EAR DRUM ISSUE IN JUNE 2022. PT HAS PERIODS OF VERTIGO,lft lung was "bad" with pneumonia several years ago Last Myocardial Infarction Date:: 2013 History of Any Multi-Drug Resistant Organisms: None Reported Past Surgical History: Cholecystectomy, Heart Catheterization With Stent, Joint Replacement Additional Past Surgical History / Comment(s): pascale total knee replacements Past Anesthesia/Blood Transfusion Reactions: No Reported Reaction Date of Last Stent Placement:: 08/10/13 Past Psychological History: Depression Smoking Status: Former smoker Past Alcohol Use History: None Reported Past Drug Use History: None Reported - Past Family History Mother Family Medical History: Coronary Artery Disease (CAD), Hypertension, Myocardial Infarction ([place]) Father Family Medical History: Cancer General Exam Limitations: no limitations General appearance: alert, in no apparent distress ENT exam: Present: normal oropharynx, normal external ear exam (No mastoid tenderness bilaterally), other (Left external auditory canal with a narrow diameter limiting full evaluation. Visualize left tympanic membrane is erythematous and bulging. Right tympanic membrane and external auditory canal unremarkable.) Neck exam: Present: normal inspection. Absent: tenderness, meningismus, lymphadenopathy Respiratory exam: Present: normal lung sounds bilaterally. Absent: respiratory distress, wheezes, rales, rhonchi, stridor Cardiovascular Exam: Present: regular rate, normal rhythm, normal heart sounds. Absent: systolic murmur, diastolic murmur, rubs, gallop, clicks Neurological exam: Present: alert, oriented X3, CN II-XII intact Skin exam: Present: warm, dry, intact, normal color. Absent: rash Course Vital Signs 06/21/24 06/21/24 13:27 14:46 Temperature 97.5 F L 98.0 F Pulse Rate 69 69 Respiratory 18 20 Rate Blood Pressure 114/49 120/52 O2 Sat by Pulse 98 98 Oximetry Medical Decision Making - Medical Decision Making Was pt. sent in by a medical professional or institution (, [employer], THEATRICAL VARIETY AGENT, urgent care, hospital, or assisted...) When possible be specific @ -No Did you speak to anyone other than the patient for history (EMS, parent, family, police, friend...)? What history was obtained from this source @ -No Did you review nursing and triage notes (agree or disagree)? Why? @ -I reviewed and agree with nursing and triage notes Were old charts reviewed (outside hosp., previous admission, EMS record, old EKG, old radiological studies, urgent care reports/EKG's, assisted records)? Report findings @ -No old charts were reviewed Differential Diagnosis (chest pain, altered mental status, abdominal pain women, abdominal pain men, vaginal bleeding, weakness, fever, dyspnea, syncope, headache, dizziness, GI bleed, back pain, seizure, CVA, palpatations, mental health, musculoskeletal)? @ -Otitis media, otitis externa, mastoiditis... This list is not meant to be all-inclusive EKG interpreted by me (3pts min.). @ -None done X-rays interpreted by me (1pt min.). @ -None done CT interpreted by me (1pt min.). @ -None done U/S interpreted by me (1pt. min.). @ -None done What testing was considered but not performed or refused? (CT, X-rays, U/S, labs)? Why? @ -None What meds were considered but not given or refused? Why? @ -None Did you discuss the management of the patient with other professionals (professionals i.e. [employer], THEATRICAL VARIETY AGENT, lab, RT, psych nurse, social media analyst, candy cooker helper, teacher, chief commercial officer, case checker)? Give summary @ -No Was smoking cessation discussed for >3mins.? @ -No Was critical care preformed (if so, how long)? @ -No Were there social determinants of health that impacted care today? How? (Homelessness, low income, unemployed, alcoholism, drug addiction, transportation, low edu. Level, literacy, decrease access to med. care, long term, rehab)? @ -No Was there de-escalation of care discussed even if they declined (Discuss DNR or withdrawal of care, Hospice)? DNR status @ -No What co-morbidities impacted this encounter? (DM, HTN, Smoking, COPD, CAD, Cancer, CVA, ARF, Chemo, Hep., AIDS, mental health diagnosis, sleep apnea, morbid obesity)? @ -None Was patient admitted / discharged? Hospital course, mention meds given and route, prescriptions, significant lab abnormalities, going to OR and other pertinent info. @ -Discharge. 63-year-old female presented the ER for evaluation of left ear pain. Vitals acceptable limits. Exam remarkable for a small diameter of left external auditory canal limiting full evaluation of auditory canal and left tympanic membrane. Visualized tympanic membrane does appear erythematous with mild bulging for which patient will start on Augmentin. There is no mastoid tenderness bilaterally. Given left external auditory canal is not fully able to be visualized patient will be started on ofloxacin eardrops for coverage of otitis externa. Patient given ibuprofen for pain control in the emergency department. I advised patient to follow-up closely with ENT, referral given, if symptoms persist. Strict return parameters discussed. Patient discharged stable condition. Patient verbally expressed understanding and agreement with care plan. Case discussed with ED attending, Dr. Irving. Undiagnosed new problem with uncertain prognosis? @ -No Drug Therapy requiring intensive monitoring for toxicity (Heparin, Nitro, Insulin, Cardizem)? @ -No Were any procedures done? @ -No Diagnosis/symptom? @ -Otitis media Acute, or Chronic, or Acute on Chronic? @ -Acute Uncomplicated (without systemic symptoms) or Complicated (systemic symptoms)? @ -Uncomplicated Side effects of treatment? @ -No Exacerbation, Progression, or Severe Exacerbation? @ -No Poses a threat to life or bodily function? How? (Chest pain, [place], [place], pneumonia, PE, COPD, DKA, ARF, appy, cholecystitis, CVA, Diverticulitis, Homicidal, Suicidal, threat to staff... and all critical care pts) @ -No Disposition Clinical Impression: Otitis media Disposition: HOME SELF-CARE Condition: Stable Additional Instructions: Take Augmentin as prescribed. Use ofloxacin eardrops 5 drops twice daily for 5 days. Follow-up with ENT and PCP. Return to the ER for any new or worsening concerns. Prescriptions: Amoxic-Pot Clav 875-125Mg [Augmentin 875-125] 1 tab PO Q12HR #20 tab Is patient prescribed a controlled substance at d/c from ED?: No Referrals: Dieter Wheat DO [Primary Care Provider] - 1-2 days Daniel Barron MD [STAFF PHYSICIAN] - 1-2 days Eduar Bui MD [STAFF PHYSICIAN] - 1-2 days Time of Disposition: 14:21
[2024-06-21] MEDS: IBUPROFEN 600 MG TAB PO STA (14:08)
[2024-06-21] MEDS: OFLOXACIN 0.3% OPHTH DROPS 5 ML BOTTLE LEFT EAR STA (14:43)
[2024-06-21 14:50] VITALS: BP 120/52; RESP 20; TEMP 98
[2024-06-21] MEDS ORDERED: OFLOXACIN 0.3% OPHTH DROPS 5 ML BOTTLE LEFT EAR SCH (21:00)
== END 2024-06-21 14:56 | disposition home or self-care (01) ==
LOC: EC 13:26
DX: H66.92 Otitis media, unspecified, left ear (principal); Z88.5 Allergy status to narcotic agent; Z87.891 Personal history of nicotine dependence
CPT/HCPCS: 99282